=== PATIENT | male | born 1960 | race Caucasian/White ===

== ENCOUNTER 2016-08-26 17:47 | Inpatient (IN) | payer OTHER ==
[2016-08-26] VITALS (11 sets, daily range): BP systolic 124–146; BP diastolic 69–111; PULSE 74–207; TEMP 35.9–36; O2SAT 89–100; BMI 26.3
[~2016-08-26] VITALS: Ht 180.3 cm; Wt 97.2 kg
[~2016-08-26 17:47] MED LIST: PENDING D5NS+20mEq KCL IVF SCH
[2016-08-26] MEDS ORDERED: ASPIRIN 324 MG CHEW ONE (18:03)
[2016-08-26] MEDS ORDERED: ASPIRIN 81 MG CHEW PO STA (18:04)
[2016-08-26] MEDS ORDERED: SODIUM CHLORIDE 0.9% 1000ML 1,000 ML IV STA (18:09)
[2016-08-26] MEDS ORDERED: METOPROLOL TARTRATE 1 MG/ML VIAL IV STA (18:10)
[2016-08-26 18:17] LABS: HEMATOCRIT 51.4 % (42-52); MEAN CELL VOLUME 80.8 fL (80-100); MEAN CORPUSCULAR HEMOGLOBIN 29.4 pg (25-34); MEAN CORPUSCULAR HGB CONC 36.4 g/dl (32-36); MEAN PLATELET VOLUME 9.7 fL (7.4-10.4); PLATELET COUNT 410 K/uL (130-400); RED BLOOD COUNT 6.36 M/uL (4.7-6.1); WHITE BLOOD COUNT 16.97 K/uL (4.8-10.8)
[2016-08-26 18:26] LABS: PARTIAL THROMBOPLASTIN RATIO 1.3; PROTHROMBIN TIME (PATIENT) 10.8 SECONDS (9.0-12.0)
--- NOTE | 2016-08-26 18:34 | DIAGNOSTIC IMAGING REPORT ---
SINGLE VIEW CHEST CLINICAL HISTORY: Atrial fibrillation. Myocardial infarction. FINDINGS: An AP, portable, upright chest radiograph is obtained. No prior studies are available for comparison at the time of dictation. The examination is degraded by portable technique, motion artifact, and patient rotation. The heart is top normal for projection. There is atherosclerotic calcification of the thoracic aorta. The pulmonary vasculature is noncongested. No airspace consolidation, large pleural effusion, or pneumothorax is seen. The bony thorax is grossly intact. IMPRESSION: No acute cardiopulmonary abnormality is seen noting a motion degraded examination. Electronically signed by: Roman Kingsley M.D. 08/26/2016 6:33 PM Dictated Date/Time: 08/26/2016 6:32 PM
[2016-08-26 18:42] LABS: ISTAT HEMOGLOBIN 19.4 g/dl (14.0-18.0); ISTAT IONIZED CALCIUM 1.19 mmol/l (1.12-1.32)
[2016-08-26 18:49] LABS: BUN/CREATININE RATIO 25.5 (10-20); CALCIUM 8.5 mg/dl (8.5-10.1); CKMB/CK RATIO 4.8 (0-3.0); CREATININE 1.7 mg/dl (0.60-1.40); MAGNESIUM 2.7 mg/dl (1.8-2.4); POTASSIUM 4.7 mmol/L (3.5-5.1)
--- NOTE | 2016-08-26 18:51 | EMERGENCY ROOM VISIT NOTE ---
History Report prepared by Rakesh: Kira Garcia Under the Supervision of: Dr. Nicol Rainey M.D. 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 The patients states that the patient starting having GI symptoms 4 days ago with nausea, vomiting,, occasional diarrhea, and unable to eat and drink due to the vomiting. The patients states the patient also had a cough with his symptoms. The patient states that along his GI symptoms his SOB started yesterday. The patient states he also has been feeling lightheaded and that exertion worsened his symptoms. The patient states that he has not seen a doctor in about 10 years but his states that in an occupational exam she thinks they might have mentioned an irregular heartbeat. The patient denies any chest pain or tingling in his face, jaw or arms. He states he is unsure if he had any recent fevers but states the last few days he was feeling warm. The patient states that he has no known medical conditions but his states that diabetes and CAD do run in the patients family. 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 Patient denies: tingling in the face, jaw or arms. Review of Systems See HPI for pertinent positives & negatives. A total of 10 systems reviewed and were otherwise negative. Past Medical & Surgical Medical Problems: (1) No Known Active Medical Problems Family History Diabetes mellitus Heart disease Social History Smoking Status: Former Smoker Marital Status: Housing Status: lives with significant other Occupation Status: unemployed Current/Historical Medications No Active Prescriptions or Reported Meds Allergies Coded Allergies: No Known Allergies (Unverified , 08/26/16) Physical Exam Vital Signs Date Time Temp Pulse Resp B/P Pulse Ox O2 Delivery O2 Flow Rate FiO2 08/26/16 21:47 82 16 120/67 95 Room Air 08/26/16 21:32 85 16 105/55 95 Room Air 08/26/16 18:50 91 30 120/90 97 Nasal Cannula 3.0 08/26/16 18:43 117 08/26/16 18:36 108 30 134/75 99 Nasal Cannula 2.0 08/26/16 18:30 36.0 08/26/16 18:17 90 30 128/83 97 Nasal Cannula 2.0 08/26/16 18:15 83 08/26/16 18:15 142 128/83 08/26/16 18:10 Nasal Cannula 2.0 08/26/16 17:59 146/92 08/26/16 17:52 155 30 128/72 90 Room Air Physical Exam Vital signs reviewed. General: Critically ill appearing male. HEENT: No scleral icterus, PERRLA, neck supple. Atraumatic. Dry mucous membranes. Cardiovascular: Tachycardic and irregular, no extra sounds. Pulmonary: Clear to auscultation bilaterally, Hyperventilating. Abdomen: Soft, nontender, nondistended, positive bowel sounds. Musculoskeletal: Atraumatic, no peripheral edema. Neurologic: Patient awake alert and oriented x 3 Skin: Cold to touch, clammy, no rash Medical Decision & Procedures ER Provider Diagnostic Interpretation: X-ray results as stated below per interpretation by me and the radiologist: SINGLE VIEW CHEST CLINICAL HISTORY: Atrial fibrillation. Myocardial infarction. FINDINGS: An AP, portable, upright chest radiograph is obtained. No prior studies are available for comparison at the time of dictation. The examination is degraded by portable technique, motion artifact, and patient rotation. The heart is top normal for projection. There is atherosclerotic calcification of the thoracic aorta. The pulmonary vasculature is noncongested. No airspace consolidation, large pleural effusion, or pneumothorax is seen. The bony thorax is grossly intact. IMPRESSION: No acute cardiopulmonary abnormality is seen noting a motion degraded examination. Electronically signed by: Roman Kingsley M.D. 08/26/2016 6:33 PM Dictated Date/Time: 08/26/2016 6:32 PM Laboratory Results 08/26/16 18:08 Red Blood Count 6.36, Mean Corpuscular Volume 80.8, Mean Corpuscular Hemoglobin 29.4, Mean Corpuscular Hemoglobin Concent 36.4, Mean Platelet Volume 9.7, Neutrophils (%) (Auto) 83.5, Lymphocytes (%) (Auto) 12.3, Monocytes (%) (Auto) 3.7, Eosinophils (%) (Auto) 0.0, Basophils (%) (Auto) 0.1, Neutrophils # (Auto) 14.18, Lymphocytes # (Auto) 2.08, Monocytes # (Auto) 0.63, Eosinophils # (Auto) 0.00, Basophils # (Auto) 0.01 08/26/16 21:36 Test 08/26/16 18:08 08/26/16 18:18 08/26/16 18:34 08/26/16 19:03 White Blood Count 16.97 K/uL (4.8-10.8) Red Blood Count 6.36 M/uL (4.7-6.1) Hemoglobin 18.7 g/dL (14.0-18.0) Hematocrit 51.4 % (42-52) Mean Corpuscular Volume 80.8 fL (80-100) Mean Corpuscular Hemoglobin 29.4 pg (25-34) Mean Corpuscular Hemoglobin Concent 36.4 g/dl (32-36) Platelet Count 410 K/uL (130-400) Mean Platelet Volume 9.7 fL (7.4-10.4) Neutrophils (%) (Auto) 83.5 % Lymphocytes (%) (Auto) 12.3 % Monocytes (%) (Auto) 3.7 % Eosinophils (%) (Auto) 0.0 % Basophils (%) (Auto) 0.1 % Neutrophils # (Auto) 14.18 K/uL (1.4-6.5) Lymphocytes # (Auto) 2.08 K/uL (1.2-3.4) Monocytes # (Auto) 0.63 K/uL (0.11-0.59) Eosinophils # (Auto) 0.00 K/uL (0-0.5) Basophils # (Auto) 0.01 K/uL (0-0.2) RDW Standard Deviation 38.7 fL (36.4-46.3) RDW Coefficient of Variation 13.1 % (11.5-14.5) Immature Granulocyte % (Auto) 0.4 % Immature Granulocyte # (Auto) 0.07 K/uL (0.00-0.02) Prothrombin Time 10.8 SECONDS (9.0-12.0) Prothromb Time International Ratio 1.0 (0.9-1.1) Activated Partial Thromboplast Time 33.4 SECONDS (21.0-31.0) Partial Thromboplastin Ratio 1.3 Magnesium Level 2.7 mg/dl (1.8-2.4) Total Bilirubin 1.0 mg/dl (0.2-1) Direct Bilirubin 0.2 mg/dl (0-0.2) Aspartate Amino Transf (AST/SGOT) 15 U/L (15-37) Alanine Aminotransferase (ALT/SGPT) 32 U/L (12-78) Alkaline Phosphatase 123 U/L (45-117) Total Creatine Kinase 113 U/L (39-308) Creatine Kinase MB 5.4 ng/ml (0.5-3.6) Creatine Kinase MB Ratio 4.8 (0-3.0) Total Protein 8.6 gm/dl (6.4-8.2) Albumin 3.5 gm/dl (3.4-5.0) Bedside Troponin I 2.500 ng/ml (0-0.045) Arterial Blood pH 7.11 (7.35-7.45) Arterial Blood Partial Pressure CO2 12 mmHg (35-46) Arterial Blood Partial Pressure O2 173 mm/Hg (80-95) Arterial Blood HCO3 4 mmol/L (19-24) Arterial Blood Oxygen Saturation 99.1 % (90-95) Arterial Blood Base Excess -23.2 mEq/L (-9-1.8) Arterial Blood Gas Delivery 3 L Jaime Test (POS) Bedside Hemoglobin 15.3 g/dl (14.0-18.0) Bedside Hematocrit 45 % (42-52) Bedside Sodium 133 mEq/L (135-144) Bedside Potassium 3.6 mEq/L (3.3-5.0) Bedside Chloride 106 mEq/L (101-112) Bedside Total CO2 6 mEq/l (24-31) Bedside Blood Urea Nitrogen 38 mg/dl (7-18) Bedside Creatinine 0.6 mg/dl (0.6-1.3) Bedside Glucose (other) 371 mg/dl (70-99) Bedside Ionized Calcium (Nat) 1.06 mmol/l (1.12-1.32) Test 08/26/16 20:20 08/26/16 21:26 08/26/16 21:36 Kaolin Activated Coagulation Time 219 SECONDS (94-140) Bedside Glucose 248 mg/dl (70-99) Anion Gap 27.0 mmol/L (3-11) Est Creatinine Clear Calc Drug Dose 102.5 ml/min Estimated GFR () 104.8 Estimated GFR (Non- 90.4 BUN/Creatinine Ratio 46.3 (10-20) Calcium Level 6.6 mg/dl (8.5-10.1) Troponin I 3.010 ng/ml (0-0.045) Beta-Hydroxybutyric Acid 75.33 mg/dL (0.2-2.81) Laboratory results per my review. Medications Administered Medications (Trade) Dose Ordered Sig/Raymond Route Start Time Stop Time Status Last Admin Dose Admin Aspirin 324 mg 324 mg STK-MED ONCE .ROUTE 08/26/16 18:03 08/26/16 18:06 DC 08/26/16 18:18 324 MG Sodium Chloride (Nss 1000ml) 1,000 ml @ 999 mls/hr Q1H1M STAT IV 08/26/16 18:09 08/26/16 19:09 DC 08/26/16 18:18 999 MLS/HR Metoprolol Tartrate (Lopressor Iv) 5 mg NOW STAT IV 08/26/16 18:10 08/26/16 18:11 DC 08/26/16 18:43 2.5 MG Heparin Sodium (Porcine) (Heparin Iv Bolus) 10,000 unit STK-MED ONCE .ROUTE 08/26/16 19:06 08/26/16 19:09 DC 08/26/16 19:06 4,000 UNIT Midazolam HCl (Versed Inj) 2 mg STK-MED ONCE .ROUTE 08/26/16 19:06 08/26/16 19:09 DC 08/26/16 19:06 2 MG Fentanyl Citrate (Fentanyl Inj) 100 mcg STK-MED ONCE .ROUTE 08/26/16 19:06 08/26/16 19:09 DC 08/26/16 19:06 50 MCG Sodium Bicarbonate (Sodium Bicarbonate 8.4% Inj) 50 ml STK-MED ONCE IV 08/26/16 19:11 08/26/16 23:05 DC 08/26/16 19:11 50 ML Insulin Human Regular (novoLIN-R U-100 PER UNIT) 10 units STK-MED ONCE .ROUTE 08/26/16 19:39 08/26/16 19:43 DC 08/26/16 19:39 10 UNITS Potassium Chloride (Kcl 10 Meq / Wtr) 20 meq STK-MED ONCE IV 08/26/16 20:09 08/26/16 20:12 DC 08/26/16 20:09 20 MEQ Heparin Sodium (Porcine) (Heparin Iv Bolus) 10,000 unit STK-MED ONCE .ROUTE 08/26/16 20:21 08/26/16 20:24 DC 08/26/16 20:21 10,000 UNIT Eptifibatide (Integrilin Inj) 75 mg STK-MED ONCE IV 08/26/16 20:54 08/26/16 20:58 DC 08/26/16 20:54 75 MG Eptifibatide (Integrilin Inj) 40 mg STK-MED ONCE IV 08/26/16 20:55 08/26/16 20:58 DC 08/26/16 20:55 40 MG Sodium Bicarbonate (Sodium Bicarbonate 8.4% Inj) 50 ml Q15M IV 08/26/16 19:30 08/26/16 21:15 DC 08/26/16 19:30 50 ML Clopidogrel Bisulfate (plAVix TAB) 600 mg STK-MED ONCE PO 08/26/16 21:38 08/26/16 21:41 DC 08/26/16 21:38 600 MG ECG Indication: SOB/dyspnea Rate (beats per minute): 149 Rhythm: atrial fibrillation (with RVR) Findings: Q waves (Anterior), ST elevation (Inferior, reciprical changes anteriorly), other (Right [place] deviation, ST elevation [place]) Change: EKG #2: rate 102, Atrial fibrillation with RVR, ST elevation in inferior leads, T wave inversion, Q waves anterior leads, reciprocal changes anteriorly. Improved from a rate of 149. ED Course 1802: Past medical records reviewed. The patient was evaluated in room A3. A complete history and physical examination was performed. 1803: Ordered Aspirin 324 mg PO. 1804: Heart alert on the patient. 1808: Ordered Sodium Chloride 1,000 ml @ 999 mls/hr IV. 1809: Ordered Lopressor Iv 5 mg IV. 0: I discussed the case with Dr. Reed Cardiology. We discussed the case and treatment plan for the patient. 1914: Ordered Insulin Protocol Severe stress 1 ea N/A, Insulin Protocol DKA Goal Range 1 ea N/A. 1919: Pt d/w Dr See of hospitalist service. Medical Decision Differential diagnosis: Acute coronary syndrome, pulmonary embolus, aortic dissection, musculoskeletal pain, pneumonia, pleural effusion, pneumothorax, metabolic abnormality, viral illness, dehydration, renal failure, cardiac arrhythmia This patient was evaluated and appeared to be in no significant distress. IV access was obtained and laboratory work was drawn. The patient was placed on the monitoring analyst and found to be in a rapid atrial fibrillation. EKG reveals ST elevation in the inferior leads with reciprocal change. I-STAT labs were obtained and reveal a bicarbonate of 7 with a blood glucose of 458. ABG was obtained and reveals a pH of 7.11. Patient's heart rate improved with IV Lopressor a total of 5 mg. He was given 2 L of IV normal saline solution. Dr. Reed was notified of the heart alert. The initial page was 180. Due to clerical error, it appears that the heart alert page had been canceled. At 1849 , Dr. Reed was paged directly by myself and the case was discussed. An insulin drip was ordered for the patient. He promptly evaluated the patient in the emergency department and taken to the Grading Supervisor for definitive management. I did discuss the case with Dr. See of the hospitalist service who will evaluate the patient for further management. Patient and his are aware of the plan and agree. Consults Time Called: 1844 Consulting Physician: Dr. Reed Cardiology Returned Call: 1849 I discussed the case with Dr. Reed Cardiology. We discussed the case and treatment plan for the patient. Impression Primary Impression: DKA (diabetic ketoacidoses) Additional Impressions: Atrial fibrillation with RVR ST elevation myocardial infarction (STEMI) of inferior wall Critical Care I have personally spent greater than 75 minutes of critical care time in the direct management of this patient. This includes bedside care, interpretation of diagnostic studies, and testing, discussion with consultants, patient, and family members, and other required patient management activities. This 60 minutes is in excess of all separately billable procedures. Scribe Attestation The scribe's documentation has been prepared under my direction and personally reviewed by me in its entirety. I confirm that the note above accurately reflects all work, treatment, procedures, and medical decision making performed by me. Departure Information Dispostion Being Evaluated By Hospitalist Prescriptions No Active Prescriptions or Reported Meds Referrals No Doctor, Assigned (PCP) Patient Instructions My [facility] Problem Qualifiers Primary Impression: DKA (diabetic ketoacidoses)
[2016-08-26 19:03] LABS: ARTERIAL BLOOD GAS pH 7.11 (7.35-7.45)
[2016-08-26 19:04] LABS: ARTERIAL BLD GAS O2 SATURATION 99.1 % (90-95); ARTERIAL BLOOD GAS BASE EXCESS -23.2 mEq/L (-9-1.8); ARTERIAL BLOOD GAS HCO3 4 mmol/L (19-24); ARTERIAL BLOOD GAS PO2 173 mm/Hg (80-95); O2 ADMINISTRATION 3 L
[2016-08-26] MEDS ORDERED: FENTANYL CITRATE INJ 50 MCG/1 ML 2 ML VIAL ONE (19:06)
[2016-08-26] MEDS ORDERED: HEPARIN SOD (PORCINE) 1000 UNIT/ML 10 ML VIAL ONE ×2 (19:06→20:21)
[2016-08-26] MEDS ORDERED: NITROGLYCERIN/D5W 100MCG/ML 20ML SYR ONE (19:06)
[2016-08-26] MEDS ORDERED: MIDAZOLAM HCL 1 MG/ML 2ML VIAL ONE (19:06)
[2016-08-26] MEDS ORDERED: NiCARDipine HCL INJ 2.5 MG/ML 10 ML AMP ONE (19:06)
[2016-08-26] MEDS ORDERED: INSULIN IV INFUSION PROTOCOL STA ×2 (19:10→23:00)
[2016-08-26] MEDS ORDERED: SODIUM BICARB 8.4% INJ 50 MEQ/50 ML SYR IV ONE (19:11)
[2016-08-26] MEDS ORDERED: SEVERE STRESS LEVEL ONE ×2 (19:15→23:00)
[2016-08-26] MEDS ORDERED: DKA GOAL RANGE 150-250 mg/dl 1 EA ONE (19:15)
[2016-08-26 19:16] LABS: BASO % 0.1 %; BASO ABS # 0.01 K/uL (0-0.2); COMPLETE YES; IG% 0.4 %; LYMPH % 12.3 %; LYMPH ABS # 2.08 K/uL (1.2-3.4); MONO % 3.7 %; NEUT % 83.5 %
[2016-08-26] MEDS ORDERED: INSULIN REGULAR 250 UNITS in SODIUM CHLORIDE 0.9% 250ML 250 ML IV SCH (19:17)
[2016-08-26 19:28] LABS: BETA-HYDROXYBUTYRATE 91.22 mg/dL (0.2-2.81)
[2016-08-26] MEDS ORDERED: GLUCOSE 10 TABS/TUBE PO PRN ×2 (19:30→23:30)
[2016-08-26] MEDS ORDERED: INSULIN HUMAN REGULAR IV BOLUS 3.5 UNIT in SYRINGE 0 ML IV ONE (19:30)
[2016-08-26] MEDS ORDERED: GLUCOSE 40% GEL 15 GM TUBE PO PRN ×2 (19:30→23:30)
[2016-08-26] MEDS: SODIUM BICARB 8.4% INJ 50 MEQ/50 ML SYR IV SCH (19:30)
[2016-08-26] MEDS ORDERED: GLUCAGON FOR INJ 1 MG VIAL SQ PRN ×2 (19:30→23:30)
[2016-08-26] MEDS ORDERED: DEXTROSE 50% 50 ML SYR IV PRN ×2 (19:30→23:30)
[2016-08-26] MEDS ORDERED: NovoLIN-R INSULIN PER UNIT CHARGE ONE (19:39)
[2016-08-26] MEDS ORDERED: NOREPINEPHRINE BITARTRATE 1 MG/ML 4 ML VIAL ONE (19:56)
[2016-08-26] MEDS ORDERED: POTASSIUM CHLORIDE 10 MEQ / 100ML WTR IV ONE (20:09)
[2016-08-26] MEDS ORDERED: EPTIFIBATIDE 0.75 MG/ML 75MG VIAL IV ONE (20:54)
[2016-08-26] MEDS ORDERED: EPTIFIBATIDE 2 MG/ML 10 ML VIAL IV ONE (20:55)
[2016-08-26] MEDS ORDERED: INSULIN ASPART 100 UNITS/ML 3 ML PEN SC SCH (21:00)
[2016-08-26] MEDS ORDERED: NURSING VERBAL MED ORDER ONE (21:15)
[2016-08-26] MEDS ORDERED: CLOPIDOGREL BISULFATE 300 MG TAB PO ONE (21:38)
--- NOTE | 2016-08-26 21:42 | Procedure Note ---
Pre-Mod Sedation Assessment General Date of Moderate Sedation: Aug 26, 2016. Vital Signs: Vital Signs Past 12 Hours Date Time Temp Pulse Resp B/P Pulse Ox O2 Delivery O2 Flow Rate FiO2 08/26/16 18:50 91 30 120/90 97 Nasal Cannula 3.0 08/26/16 18:43 117 08/26/16 18:36 108 30 134/75 99 Nasal Cannula 2.0 08/26/16 18:30 36.0 08/26/16 18:17 90 30 128/83 97 Nasal Cannula 2.0 08/26/16 18:15 83 08/26/16 18:15 142 128/83 08/26/16 18:10 Nasal Cannula 2.0 08/26/16 17:59 146/92 08/26/16 17:52 155 30 128/72 90 Room Air Review Cardiovascular: regular rate, rhythm, no edema Abdomen: normal bowel sounds, non tender, soft Lungs: lungs clear, normal breath sounds Airway Class: II Pre-Sedation Airway Assessment Oral Cavity: WNL Able to Visualize Vocal Cords: Yes Short Thick Neck: Yes Hx of Sleep Apnea: Yes Smoking Status: Former Smoker Mallampati Classification: Class II ASA Classification: Class III Procedure Planning Contraindications-for Mod Sed: None Yes Notes The planned sedation has been discussed with the patient and consent obtained. I have identified the patient, determined the appropriateness of sedation and have assessed the patient immediately prior to the procedure. All medicine(s) and interventions are by my order.
--- NOTE | 2016-08-26 21:44 | Procedure Note ---
Post-Mod Sedation Assessment General Date of Moderate Sedation Aug 26, 2016. Vital Signs: Vital Signs Past 12 Hours Date Time Temp Pulse Resp B/P Pulse Ox O2 Delivery O2 Flow Rate FiO2 08/26/16 18:50 91 30 120/90 97 Nasal Cannula 3.0 08/26/16 18:43 117 08/26/16 18:36 108 30 134/75 99 Nasal Cannula 2.0 08/26/16 18:30 36.0 08/26/16 18:17 90 30 128/83 97 Nasal Cannula 2.0 08/26/16 18:15 83 08/26/16 18:15 142 128/83 08/26/16 18:10 Nasal Cannula 2.0 08/26/16 17:59 146/92 08/26/16 17:52 155 30 128/72 90 Room Air Review - Discharge Criteria Vital Signs Stable: Yes Alert/Oriented/Conversant: Yes Returned to Baseline Mental St: Yes Nausea Absent/Minimal: Yes Pain/Discomfort/Absent/Minimal: Yes Normal/Baseline Respirations: Yes Active Bleeding?: No Pt Received D/C Instructions: N/A Prescriptions Given: None Specific Proced. D/C Criteria Distal Pulses Present (Cardiac: Yes Groin site assessed-Card Cath: N/A Voided Prior To Discharge: N/A Discharged Patients Adult Escort/Transportation: Yes
[2016-08-26] MEDS ORDERED: EPTIFIBATIDE BOLUS / DRIP IV STA (21:47)
[2016-08-26] MEDS ORDERED: ACETAMINOPHEN 325 MG TAB PO PRN (22:00)
[2016-08-26 22:04] LABS: ISTAT ARTERIAL BLOOD GAS HCO3 6 meq/L (19-24); ISTAT ARTERIAL BLOOD GAS PCO2 15 mmHg (35-46); ISTAT ARTERIAL BLOOD GAS PO2 118 mmHg (80-95); ISTAT ARTERIAL BLOOD GAS pH 7.23 (7.35-7.45); ISTAT CARBON DIOXIDE 7 mEq/l (24-31)
[2016-08-26 22:04] LABS: ISTAT ARTERIAL BLOOD GAS HCO3 4 meq/L (19-24); ISTAT ARTERIAL BLOOD GAS PCO2 12 mmHg (35-46); ISTAT ARTERIAL BLOOD GAS PO2 159 mmHg (80-95); ISTAT ARTERIAL BLOOD GAS pH 7.11 (7.35-7.45); ISTAT CARBON DIOXIDE < 5 mEq/l (24-31)
[2016-08-26 22:04] LABS: ISTAT ARTERIAL BLOOD GAS HCO3 4 meq/L (19-24); ISTAT ARTERIAL BLOOD GAS PCO2 13 mmHg (35-46); ISTAT ARTERIAL BLOOD GAS PO2 164 mmHg (80-95); ISTAT CARBON DIOXIDE < 5 mEq/l (24-31)
[2016-08-26 22:04] LABS: ISTAT ARTERIAL BLOOD GAS HCO3 6 meq/L (19-24); ISTAT ARTERIAL BLOOD GAS PCO2 15 mmHg (35-46); ISTAT ARTERIAL BLOOD GAS PO2 157 mmHg (80-95); ISTAT ARTERIAL BLOOD GAS pH 7.18 (7.35-7.45); ISTAT CARBON DIOXIDE 6 mEq/l (24-31)
[2016-08-26 22:04] LABS: ISTAT CREATININE 0.6 mg/dl (0.6-1.3); ISTAT HEMOGLOBIN 15.3 g/dl (14.0-18.0); ISTAT IONIZED CALCIUM 1.06 mmol/l (1.12-1.32)
[2016-08-26 22:14] LABS: BUN/CREATININE RATIO 46.3 (10-20); CREATININE 0.95 mg/dl (0.60-1.40); POTASSIUM 4.1 mmol/L (3.5-5.1)
[2016-08-26] MEDS ORDERED: SODIUM CHLORIDE 0.9% 1000ML 1,000 ML IV SCH (22:30)
--- NOTE | 2016-08-26 22:32 | Cardiac Catheterization ---
Procedure Note Procedure Date Aug 26, 2016. Pre-Procedure Diagnosis STEMI AUC Score 9 Post-Procedure Diagnosis Severe CAD, Successful PCI, Normal Intracardiac Pressures Procedure(s) Performed Coronary Angiography, Left Heart Cath, Drug Eluting Stent [place] Enc[place] Dr. 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 Initial ECG showed inferior ST-elevations with Atrial Fibrillation with RVR Also noted to be in DKA with Glucose ~500, AG 27, pH 7.11 Access: 6Fr Slender Right Radial Artery Catheters: JL 3.5 diagnostic, JR4 guide, AR1 guide Findings: LM - Luminal irregularities LAD - Moderate caliber vessel that wraps around the apex. Focal 40-50% mid segment stenosis with questionable myocardial bridging. Distal luminal irregularities. Circumflex - 20% ostial stenosis, mild diffuse proximal disease, 70% proximal stenosis in OM2 at take-off of small severely disease inferior branch of OM2. 50% distal circumflex stenosis. RCA - Dominant, anterior take-off. 100% occlusion in proximal segment. Severe calcification from proximal to mid segment. Left to right collaterals to PDA, PLBs. LVEDP - 10 -- PCI -- Antithrombotic therapy: Heparin, Integrilin, Clopidogrel Procedure: RCA cannulated with JR4 guide. With anterior take-off, heavy calcification, switched to AR1 guide Unable to pass occlusion with BMW wire. [employer] Turbine Assembler 50 wire using balloon for support was passed across lesion into distal vessel. Intraluminal position confirmed with contrast injection via 2.0 OTW balloon. [employer] Turbine Assembler 50 replaced with Mailman wire. Proximal to mid lesion predilated with 2.0, 2.5 and 3.0 compliant balloons with eventual expansion of mid segment Dilated lesion stented with 3.0 x 38 Resolute overlapped proximally with 3.5 x 22 Resolute. Stent post-dilated with 3.5 noncompliant balloon Distal small-moderate caliber PLB noted to be occluded. Lesion crossed with BMW wire Distal PLB dilated with gentle 2.0 balloon inflation. IC vasodilators administered Post procedure KANDIS 3 flow throughout RCA system, stents well expanded with minimal residual stenosis and no apparent cardiac complications. Arterial Closure: TR band Intra-procedure received 10 U IV insulin, 200 mEq Bicarbonate, 20 mEq Potassium and 2L IV fluids. Converted spontaneously to normal sinus rhythm at ~20:34 Summary: 1. Inferior STEMI/Occluded heavily calcified RCA (suspect chronic severe RCA disease with pre-procedure left to right collaterals) 2. Moderate to severe residual LAD, circumflex disease - 40-50% mid LAD - 70% proximal OM2 3. Normal intracardiac filling pressures (LVEDP 11) 4. Successful PCI of proximal to mid RCA with 3.5 x 22, 3.0 x 38 overlapping Resolute MARILYN - POBA to distal R-PLB Recommendations: Admit to ICU for continued monitoring Continue Integrilin infusion for 12 hours Loaded with Clopidogrel 600 mg in picket [employer] union Continue dual-antiplatelet therapy with ASA/Plavix for 1 year Trend troponins until peak, Check Echo Uptitrate beta-girish/TATIANNA as BP allows High-dose statin Consult cardiac Rehab Medical management of residual coronary artery disease. Hemodynamics Rest Ao: 100/65/80 Final Ao: 95/52/69 LV: 98/10 Recommendations PCI without planned CABG Specimens None Radiation Exposure (mGy) 5969 Contrast (mls) 180 Fluids (cc crystalloids) 2200 Drains none Anesthesia moderate Procedural Complication(s) None Disposition ICU ACC Data Cardiac Status Clinical evaluation leading to the procedure CAD Presntation: STEMI STEMI or Non-STEMI: Symptom Onset Date/Time: 48 hrs Anginal Classification: CCS IV Heart Failure: No, NYHA Class: CCS I Cardiogenic Shock w/in 24Hrs: No Cardiac Arrest w/in 24Hrs: No Imaging studies past 6 months: No Stress studies past 6 months: No Standard Exercise Stress Test: No Stress Echocardiogram: No Stress Testing w/SPECT MPI: No Cardiac CTA: No Coronary Anatomy Dominant: Right Left Main (% Stenosis): Normal LAD (% Stenosis): Mid (40-50) Circumflex (% Stenosis): Ostial (20), Distal (50) OM2 (% Stenosis): Proximal (70) RCA (% Stenosis): Proximal (100) R PL2 (% Stenosis): Proximal (100) Diagnostic Physician's Name: Elder Reed MD Status: Emergency Closure Device Percutaneous Entry Location: Radial Closure Device: Radial Band Recommendations: PCI without planned CABG PCI Indication: Immediate PCI for STEMI (12Hrs from SX onset) First Noted: First EKG (18:04) Reason For Delay in PCI: Relay of Heart Alert to covering team Lesion Segment Name: Proximal to mid RCA Culprit Artery: Yes Stenosis Prior to Rx (%): 100 Chronic Total Occlusion: No IVUS: No FFR: No Pre-Procedure KANDIS Flow: 0 Previously Treated Lesion: No Lesion Complexity: High/C Lesion Length (mm): 40 Thrombus Present: Yes Bifurcation Lesion: No Guidewire Across Lesion: Yes Guidewire: Stenosis Post-Procedure (%): 0 Post-Procedure KANDIS Flow: 3 Device(s) Deployed: Yes Intraprocedure Events Significant Dissection: No Perforation: No
[2016-08-26] MEDS: ONDANSETRON INJ 2 MG/ML 2 ML VIAL IV PRN ×2 (22:41→23:50)
[2016-08-26] MEDS ORDERED: ONDANSETRON INJ 2 MG/ML 2 ML VIAL IV PRN (22:45)
[2016-08-26] MEDS ORDERED: HHS GOAL RANGE 250-350 mg/dl ONE (23:00)
[2016-08-26 23:08] LABS: CALCIUM 6.6 mg/dl (8.5-10.1)
[2016-08-26] MEDS ORDERED: SODIUM BICARBONATE IV SCH (23:15)
[2016-08-26] MEDS ORDERED: PANTOprazole INJ 40 MG in SYRINGE 0 ML IV ONE (23:15)
[2016-08-26] MEDS ORDERED: POTASSIUM CHLORIDE IV SCH (23:15)
[2016-08-26] MEDS ORDERED: [UNRECOGNIZED DRUG - OTHER] IV SCH (23:15)
[2016-08-26 23:22] LABS: ISTAT ALLEN TEST Pass; ISTAT ARTERIAL BLOOD GAS HCO3 6 meq/L (19-24); ISTAT ARTERIAL BLOOD GAS PCO2 13 mmHg (35-46); ISTAT ARTERIAL BLOOD GAS PO2 107 mmHg (80-95); ISTAT ARTERIAL BLOOD GAS pH 7.23 (7.35-7.45); ISTAT CARBON DIOXIDE 6 mEq/l (24-31); ISTAT DELIVERY SYSTEM Room Air; ISTAT SITE L Radial
--- NOTE | 2016-08-26 23:23 | CARDIOLOGY CONSULTATION ---
DATE OF CONSULTATION: 08/26/2016 CONSULTATION REQUESTE BY: Dr. Rainey in the Emergency Department. REASON FOR CONSULTATION: Heart alert. HISTORY OF PRESENT ILLNESS: Mr. Puentes is a 55-year-old male with no real significant past medical history, who presented to the Emergency Department complaining of shortness of breath for 1 day and GI symptoms with nausea, vomiting, occasional diarrhea beginning 4 days prior to admission. The patient on presentation had an EKG which showed atrial fibrillation with inferior ST elevations and a heart alert was called. The patient has no prior cardiac history. He has no prior history of diabetes. He noted feeling lightheaded with worsening shortness of breath for the last day leading to his presentation. When presented, the patient was noted to be in DKA with an initial pH of 7.11 and an anion gap of 27 and blood sugars into the high 400s, near 500. He was treated with IV fluids and aspirin prior to being taken emergently to the label printer. Also, in the Emergency Department, the patient received IV Lopressor for atrial fibrillation with RVR. In the label printer, the patient underwent procedure via his right radial artery. He was found to have moderate disease in his LAD and OM2. He was also noted to have an occluded RCA which was heavily calcified and was noted to have left to right collaterals at the beginning of the case suggestive of chronic severe disease. PCI was undertaken and eventually RCA was treated with 2 drug-eluting stents (Resolute 3.5 x 22, Resolute 3.0 x 38 mm). During the procedure, the patient received 10 units of IV insulin, 2 liters of IV fluid, potassium, and 4 amps of bicarbonate. Post-procedure, pH was 7.23 and glucose was in the 280s. Also in procedure, the patient received IV Integrilin and was loaded with Plavix prior to leaving. At the completion of procedure, the patient was chest pain free, endorsed improved dyspnea, and was transferred to the ICU. PAST MEDICAL HISTORY: No significant past medical history. FAMILY HISTORY: States mother had coronary artery disease. SOCIAL HISTORY: Was a prior smoker, quit about 5 years ago. Denies any other illicit drugs. He is . Has a daughter. MEDICATIONS: None. ALLERGIES: None. REVIEW OF SYSTEMS: Not completed in the emergent situations. PHYSICAL EXAMINATION: VITAL SIGNS: Temperature 36, pulse 108, respiratory rate was 30, blood pressure was 134/75, he was satting 99% on 2 liters. GENERAL: The patient appeared ill. He was tachypneic, in mild distress. HEENT: Sclerae anicteric. Oropharynx was dry. NECK: Supple with no lymphadenopathy. LUNGS: Clear to auscultation bilaterally. CARDIAC: He was irregularly irregular, tachycardic, with no appreciable murmurs, rubs or gallops. ABDOMEN: Soft, nontender, nondistended, with positive bowel sounds. EXTREMITIES: Warm. He had 2+ distal pulses bilaterally including 2+ right radial pulse. SKIN: Showed rashes or lesions. NEUROLOGIC: The patient was sleepy, but the remainder of the exam was grossly nonfocal. DATA: Sodium 129, potassium 4.7, chloride of 95, bicarbonate of 7 with an anion gap of 27, BUN of 43, creatinine of 1.7, glucose of 492, magnesium of 2.7. LFTs within normal limits except for slightly elevated alkaline phosphatase at 123. CK-MB of 5.4. Hipwf-[id number] troponin of 2.5 and beta hydroxybutyric acid of 91.2. INR was 1.0. WBC was 16.9, hemoglobin of 18.7, and platelets of 410. His initial blood gas was 7.11, 12, 173, 4. Chest x-ray showed no acute cardiopulmonary process. EKG showed atrial fibrillation with a rapid ventricular response at 102. There were inferior ST elevations as well as lateral ST depressions. IMPRESSION AND PLAN: 1. Inferior ST-segment elevation myocardial infarction. 2. Diabetic ketoacidosis. 3. Atrial fibrillation with rapid ventricular response. 4. Acute kidney injury. Patient here with several days of GI symptoms and worsening shortness of breath. He was found to have inferior ST segment elevations on EKG in the setting of DKA on presentation. Was successfully treated with primary PCI with 2 drug-eluting stents placed to his RCA with good angiographic result. Going forward, would continue the patient on Integrilin for 12 hours. Was loaded with Plavix 600 mg in the label printer and will continue on dual antiplatelet therapy for at least a year. As blood pressure allows, plan to start beta girish, TATIANNA inhibitor. We will start on high-dose statin. The patient will be admitted to the ICU for continued DKA management. Atrial fibrillation converted to normal sinus rhythm intraprocedure. We will continue to follow the patient while in the hospital. SABRINA
[2016-08-26] MEDS: D5NSS + 20MEQ KCL 1,000 ML IV SCH (23:41)
[2016-08-26] MEDS ORDERED: PHARMACY GLYCEMIC MGMT CONSULT PRN (23:45)
[2016-08-26] MEDS ORDERED: INSULIN HUMAN REGULAR IV BOLUS 3 UNIT in SYRINGE 0 ML IV SCH (23:45)
[2016-08-26] MEDS: INSULIN REGULAR 250 UNITS in SODIUM CHLORIDE 0.9% 250ML 250 ML IV SCH (23:45)
[2016-08-27] VITALS (21 sets, daily range): BP systolic 87–134; BP diastolic 52–67; PULSE 78–124; TEMP 36.3–36.9; O2SAT 95–99; BMI 26.3
--- NOTE | 2016-08-27 00:07 | History and Physical ---
History & Physical Date & Time of Service: Aug 26, 2016 at 23:43 Chief Complaint: Atrial Fibrillation With Rvr, Dka Primary Care Physician: No Doctor, Assigned History of Present Illness Source: patient, family Mr. Puentes is a 55-year-old male who presented as a Heart Alert this evening, was found to have 100% blockage of RCA with 2 drug-eluting stents placed by Dr. Reed, also found to be in DKA. Over the last 4 days, he had persistent GI symptoms, including nausea, vomiting , diarrhea, which made him feel very weak. He had occasional shortness of breath and was brought in to the ED by his . He denied any chest pain at any point. He does not have a history of diabetes. He reports over the last 4 days he has not been able to keep anything down, so he was drinking very sugary drinks, including iced tea and lemonade. He reports he started to feel weak and fatigued with any exertion. Also reported intermittent chills, but denied having an actual fever. He thought he had the flu so did not seek medical attention. He does not have a primary care provider. On arrival to the ED, he was found to be in atrial fibrillation with RVR. He was given 5mg of IV Lopressor. His EKG also showed ST elevation in the inferior leads and a heart alert was called. He was found to have 100% blockage of the RCA and had 2 drug eluting stents placed earlier today. His pH was also 7.11, with a bicarb of 4 and BSGs of 458-492. He was given NSS, 4 ampoules of bicarb, 10 units of IV insulin and his pH has come up to 7.24. Currently he has occasional sweats, but still denies any chest pain or shortness of breath now. He reports being thirsty, and slightly hungry. Past Medical/Surgical History PMHx: None reported, but likely underlying DM PSHx: None Family History Diabetes mellitus Heart disease Social History Smoking Status: Former Smoker (Stopped 5 years ago) Marital Status: Housing status: lives with family Allergies Coded Allergies: No Known Allergies (Unverified , 08/26/16) Home Medications No Active Prescriptions or Reported Meds Review of Systems See HPI for pertinent positives & negatives. Specifically, he did have nausea, vomiting, diarrhea, anorexia over the last 4 days. He also had extreme fatigue, and occasional chills. A total of 10 systems reviewed and were otherwise negative. Physical Exam Vital Signs Date Time Temp Pulse Resp B/P Pulse Ox O2 Delivery O2 Flow Rate FiO2 08/26/16 22:05 35.9 82 26 132/111 98 Room Air 08/26/16 21:47 82 16 120/67 95 Room Air 08/26/16 21:32 85 16 105/55 95 Room Air 08/26/16 18:50 91 30 120/90 97 Nasal Cannula 3.0 08/26/16 18:43 117 08/26/16 18:36 108 30 134/75 99 Nasal Cannula 2.0 08/26/16 18:30 36.0 08/26/16 18:17 90 30 128/83 97 Nasal Cannula 2.0 08/26/16 18:15 83 08/26/16 18:15 142 128/83 08/26/16 18:10 Nasal Cannula 2.0 08/26/16 17:59 146/92 08/26/16 17:52 155 30 128/72 90 Room Air General Appearance: WD/WN, + mild distress Head: normocephalic, atraumatic Eyes: normal inspection, PERRL ENT: hearing grossly normal Neck: supple, no JVD Respiratory/Chest: lungs clear, normal breath sounds, no respiratory distress Cardiovascular: regular rate, rhythm, no murmur Abdomen/GI: non tender, soft Back: normal inspection, no muscle spasm Extremities/Musculoskelatal: normal inspection, no pedal edema, normal range of motion Neurologic/Psych: costume technician II-XII nml as tested, no motor/sensory deficits, alert Skin: no rash Diagnostics Laboratory Results Results Past 24 Hours Test 08/26/16 17:59 08/26/16 18:08 08/26/16 18:14 08/26/16 18:18 Range/Units Bedside Glucose 458 70-99 mg/dl White Blood Count 16.97 4.8-10.8 K/uL Red Blood Count 6.36 4.7-6.1 M/uL Hemoglobin 18.7 14.0-18.0 g/dL Hematocrit 51.4 42-52 % Mean Corpuscular Volume 80.8 80-100 fL Mean Corpuscular Hemoglobin 29.4 25-34 pg Mean Corpuscular Hemoglobin Concent 36.4 32-36 g/dl Platelet Count 410 130-400 K/uL Mean Platelet Volume 9.7 7.4-10.4 fL Neutrophils (%) (Auto) 83.5 % Lymphocytes (%) (Auto) 12.3 % Monocytes (%) (Auto) 3.7 % Eosinophils (%) (Auto) 0.0 % Basophils (%) (Auto) 0.1 % Neutrophils # (Auto) 14.18 1.4-6.5 K/uL Lymphocytes # (Auto) 2.08 1.2-3.4 K/uL Monocytes # (Auto) 0.63 0.11-0.59 K/uL Eosinophils # (Auto) 0.00 0-0.5 K/uL Basophils # (Auto) 0.01 0-0.2 K/uL RDW Standard Deviation 38.7 36.4-46.3 fL RDW Coefficient of Variation 13.1 11.5-14.5 % Immature Granulocyte % (Auto) 0.4 % Immature Granulocyte # (Auto) 0.07 0.00-0.02 K/uL Prothrombin Time 10.8 9.0-12.0 SECONDS Prothromb Time International Ratio 1.0 0.9-1.1 Activated Partial Thromboplast Time 33.4 21.0-31.0 SECONDS Partial Thromboplastin Ratio 1.3 Sodium Level 129 136-145 mmol/L Potassium Level 4.7 3.5-5.1 mmol/L Chloride Level 95 98-107 mmol/L Carbon Dioxide Level 7 21-32 mmol/L Anion Gap 27.0 27.0 16-25 mmol/L Blood Urea Nitrogen 43 7-18 mg/dl Creatinine 1.70 0.60-1.40 mg/dl Est Creatinine Clear Calc Drug Dose 57.3 ml/min Estimated GFR () 51.8 Estimated GFR (Non- 44.7 BUN/Creatinine Ratio 25.5 10-20 Random Glucose 480 70-99 mg/dl Calcium Level 8.5 8.5-10.1 mg/dl Magnesium Level 2.7 1.8-2.4 mg/dl Total Bilirubin 1.0 0.2-1 mg/dl Direct Bilirubin 0.2 0-0.2 mg/dl Aspartate Amino Transf (AST/SGOT) 15 15-37 U/L Alanine Aminotransferase (ALT/SGPT) 32 12-78 U/L Alkaline Phosphatase 123 45-117 U/L Total Creatine Kinase 113 39-308 U/L Creatine Kinase MB 5.4 0.5-3.6 ng/ml Creatine Kinase MB Ratio 4.8 0-3.0 Total Protein 8.6 6.4-8.2 gm/dl Albumin 3.5 3.4-5.0 gm/dl Beta-Hydroxybutyric Acid 91.22 0.2-2.81 mg/dL Bedside Hemoglobin 19.4 14.0-18.0 g/dl Bedside Hematocrit 57 42-52 % Bedside Sodium 129 135-144 mEq/L Bedside Potassium 4.8 3.3-5.0 mEq/L Bedside Chloride 101 101-112 mEq/L Bedside Total CO2 7 24-31 mEq/l Bedside Blood Urea Nitrogen 43 7-18 mg/dl Bedside Creatinine 1.0 0.6-1.3 mg/dl Bedside Glucose (other) 492 70-99 mg/dl Bedside Ionized Calcium (Nat) 1.19 1.12-1.32 mmol/l Bedside Troponin I 2.500 0-0.045 ng/ml Test 08/26/16 18:32 08/26/16 18:34 08/26/16 18:49 08/26/16 19:03 Range/Units Bedside Blood Gas pH (LAB) 7.10 7.35-7.45 Bedside Blood Gas pCO2 (LAB) 13 35-46 mmHg Bedside Blood Gas pO2 (LAB) 164 80-95 mmHg Bedside Blood Gas HCO3 (LAB) 4 19-24 meq/L Bedside Blood Gas Total CO2 < 5 24-31 mEq/l Bedside Blood Gas Base Excess (LAB) -26.0 -9-1.8 meq/L Bedside Blood Gas O2 Saturation 99.0 90-95 % Arterial Blood pH 7.11 7.35-7.45 Arterial Blood Partial Pressure CO2 12 35-46 mmHg Arterial Blood Partial Pressure O2 173 80-95 mm/Hg Arterial Blood HCO3 4 19-24 mmol/L Arterial Blood Oxygen Saturation 99.1 90-95 % Arterial Blood Base Excess -23.2 -9-1.8 mEq/L Arterial Blood Gas Delivery 3 L Jaime Test POS Kaolin Activated Coagulation Time 209 94-140 SECONDS Bedside Hemoglobin 15.3 14.0-18.0 g/dl Bedside Hematocrit 45 42-52 % Bedside Sodium 133 135-144 mEq/L Bedside Potassium 3.6 3.3-5.0 mEq/L Bedside Chloride 106 101-112 mEq/L Bedside Total CO2 6 24-31 mEq/l Anion Gap 26.0 16-25 mmol/L Bedside Blood Urea Nitrogen 38 7-18 mg/dl Bedside Creatinine 0.6 0.6-1.3 mg/dl Bedside Glucose (other) 371 70-99 mg/dl Bedside Ionized Calcium (Nat) 1.06 1.12-1.32 mmol/l Test 08/26/16 19:09 08/26/16 19:12 08/26/16 19:35 08/26/16 19:44 Range/Units Bedside Blood Gas pH (LAB) 7.11 7.18 7.35-7.45 Bedside Blood Gas pCO2 (LAB) 12 15 35-46 mmHg Bedside Blood Gas pO2 (LAB) 159 157 80-95 mmHg Bedside Blood Gas HCO3 (LAB) 4 6 19-24 meq/L Bedside Blood Gas Total CO2 < 5 6 24-31 mEq/l Bedside Blood Gas Base Excess (LAB) -26.0 -23.0 -9-1.8 meq/L Bedside Blood Gas O2 Saturation 99.0 99.0 90-95 % Kaolin Activated Coagulation Time 214 301 94-140 SECONDS Test 08/26/16 20:20 08/26/16 20:28 08/26/16 21:26 08/26/16 21:36 Range/Units Kaolin Activated Coagulation Time 219 94-140 SECONDS Bedside Blood Gas pH (LAB) 7.23 7.35-7.45 Bedside Blood Gas pCO2 (LAB) 15 35-46 mmHg Bedside Blood Gas pO2 (LAB) 118 80-95 mmHg Bedside Blood Gas HCO3 (LAB) 6 19-24 meq/L Bedside Blood Gas Total CO2 7 24-31 mEq/l Bedside Blood Gas Base Excess (LAB) -21.0 -9-1.8 meq/L Bedside Blood Gas O2 Saturation 98.0 90-95 % Bedside Glucose 248 70-99 mg/dl Sodium Level 140 136-145 mmol/L Potassium Level 4.1 3.5-5.1 mmol/L Chloride Level 108 98-107 mmol/L Carbon Dioxide Level 6 21-32 mmol/L Anion Gap 27.0 3-11 mmol/L Blood Urea Nitrogen 44 7-18 mg/dl Creatinine 0.95 0.60-1.40 mg/dl Est Creatinine Clear Calc Drug Dose 102.5 ml/min Estimated GFR () 104.8 Estimated GFR (Non- 90.4 BUN/Creatinine Ratio 46.3 10-20 Random Glucose 267 70-99 mg/dl Calcium Level 6.6 8.5-10.1 mg/dl Troponin I 3.010 0-0.045 ng/ml Test 08/26/16 23:08 Range/Units Blood Gas Sample Site L Radial Bedside Blood Gas pH (LAB) 7.23 7.35-7.45 Bedside Blood Gas pCO2 (LAB) 13 35-46 mmHg Bedside Blood Gas pO2 (LAB) 107 80-95 mmHg Bedside Blood Gas HCO3 (LAB) 6 19-24 meq/L Bedside Blood Gas Total CO2 6 24-31 mEq/l Bedside Blood Gas Base Excess (LAB) -22.0 -9-1.8 meq/L Bedside Blood Gas O2 Saturation 98.0 90-95 % Jaime Test Pass Oxygen Delivery Device Room Air LATEST ABG 08/26/16 23:08: pH 7.23, pCO2 13, Na+ 140, HCO3- 6, Cl- 108 Analysis: pH 7.23, pCO2 13 = Metabolic Acidosis Predicted pCO2 = (1.5 x HCO3) + 8 = 17. Actual pCO2 13. = Additional respiratory alkalosis Anion Gap = Na - Cl - HCO3 = 26 = Anion gap present Corrected bicarb = AG - 12 + HCO3 = 26 - 12 + 6= 20 = Non Anion Gap Metabolic Acidosis Diagnostic Radiology SINGLE VIEW CHEST CLINICAL HISTORY: Atrial fibrillation. Myocardial infarction. FINDINGS: An AP, portable, upright chest radiograph is obtained. No prior studies are available for comparison at the time of dictation. The examination is degraded by portable technique, motion artifact, and patient rotation. The heart is top normal for projection. There is atherosclerotic calcification of the thoracic aorta. The pulmonary vasculature is noncongested. No airspace consolidation, large pleural effusion, or pneumothorax is seen. The bony thorax is grossly intact. IMPRESSION: No acute cardiopulmonary abnormality is seen noting a motion degraded examination. EKG Initial EKG: Atrial fibrillation with RVR, 149bpm, with ST elevation in inferior leads with reciprocal changes in anterior leads Repeat EKG: A fib with RVR, 102bpm, ST elevation inferior leads with T wave inversion, Q waves anterior leads, and persistent reciprocal changes Impression Assessment and Plan 55 year old male who presented with inferior STEMI, s/p 2 drug eluting stent placement, who also presented with DKA and atrial fibrillation with RVR. Discussed case with Locator Specialist Dr. Maria Fernanda steen 7:10pm on 08/26/16. 1. Acute STEMI - As per Dr. Reed, continue with Intergrilin for 12 hours - Continue dual antiplatelet therapy - Eventually start beta girish and TATIANNA-I - Start high dose Statin 2. Metabolic acidosis with respiratory alkalosis, from diabetic ketoacidosis/ HHS as well as recent GI losses - BSG responded well to initial insulin infusion (10 units of IV regular insulin ), now 267. Goal BSG 250-350. - Will start on IV insulin infusion with D5W + 20KCL at 200mL/hour for now - BSGs hourly x 3, then if normal can space to q2h, then per protocol - BMP q4h (next draw at 1:30) 3. Atrial fibrillation with RVR - Converted to NSR in cardiac cath rn - Continue to monitor 4. Acute renal insufficiency - Cr to 0.97 from 1.70 on arrival, was likely pre-renal and now resolved - Continue to monitor 5. Nausea, vomiting, diarrhea - Zofran 4mg IV q4h PRN CODE STATUS: FULL VTE: Integrillin Dispo: ICU Advanced Directives Existing Living Will: No Existing Power of Psychologist Industrial Organizational: No VTE Prophylaxis VTE Risk Assessment Done? Y/N: Yes Risk Level: Moderate Resident Tracking Resident Involvement: Resident Care Provided Care Provided: [facility] Assessment and Plan Attending Addendum: I have physically seen and examined this patient, have directed their medical care, have supervised the medical residents activities, and agree with the H&P as noted above, with the following changes: NONE next The patient is awake, alert and oriented 3, complexion is somewhat cris and looks dehydrated, lying in bed and in no acute distress. HEENT--PERRL, EOMI, mucous membranes and oropharynx dry. Neck--supple, no JVD or bruits, thyroid normal, trachea midline, no adenopathy. Heart--normal S1 and S2, no extra beats, no murmurs, rubs or gallops. Lungs--clear bilaterally with good air movement, no respiratory distress, no accessory muscle use. Abdomen--normal bowel sounds and soft, nontender and nondistended, no hernias or masses, no organomegaly. Extremities--no cyanosis, clubbing or edema. There are good distal pulses b/l. Dermatologic--normal skin turgor, normal color, warm and dry, no abnormal lymph nodes, no rash except as noted above. Neurologic--cranial nerves II through XII grossly intact, motor and sensory examination normal. Rheumatologic--normal range of motion, nontender, muscles and joints. Psychiatric--normal affect. Assessment and Plan: Atrial fibrillation with RVR/STEMI with 100% RCA occlusion status post emergent stent placement--patient is admitted to the ICU postprocedure, with orders per interventional cardiology. New-onset diabetes mellitus with DKA--patient will receive 2 1/2 L of normal saline from the ED and during the procedure. He is being started on insulin drip and will follow serial BMP, magnesium, phosphorus and beta hydroxybutyric acid levels. When his glucose reaches 250, D5 will be placed in fluids and labs will be followed until and point. Acute renal insufficiency--creatinine during entrance labs was 1.7, and this will be followed with serial testing, in particular following closely to monitor for adverse effects with the necessary use of dye during cardiac assessment and treatment. We will check a fasting lipid profile, and hemoglobin A1c in addition to the above laboratories. He will have Zofran 4 mg IV every 6 hours when necessary available, and we placed on Protonix 40 mg IV for GI prophylaxis.
[2016-08-27 01:36] LABS: BETA-HYDROXYBUTYRATE 75.33 mg/dL (0.2-2.81)
[2016-08-27] MEDS ORDERED: NURSING VERBAL MED ORDER ONE (02:15)
[2016-08-27] MEDS: EPTIFIBATIDE INJ 75 MG PREMIXED IV SCH ×2 (03:32→10:22)
[2016-08-27 04:15] LABS: BUN/CREATININE RATIO 36.5 (10-20); CALCIUM 6.8 mg/dl (8.5-10.1); CREATININE 1.1 mg/dl (0.60-1.40); MAGNESIUM 2.1 mg/dl (1.8-2.4); POTASSIUM 3.9 mmol/L (3.5-5.1)
[2016-08-27 04:50] LABS: PHOSPHORUS 1.1 mg/dl (2.5-4.9)
[2016-08-27] MEDS: D5NSS + 20MEQ KCL 1,000 ML IV SCH ×2 (04:54→10:21)
[2016-08-27 05:05] LABS: BETA-HYDROXYBUTYRATE 50.06 mg/dL (0.2-2.81)
[2016-08-27] MEDS ORDERED: SODIUM PHOSPHATE 3 MMOL/1 ML INFUSION IV STA (06:04)
[2016-08-27] MEDS ORDERED: SODIUM CHLORIDE 0.9% IV SCH (06:30)
[2016-08-27] MEDS ORDERED: SODIUM PHOSPHATE IV SCH (06:30)
[2016-08-27 06:56] LABS: COMPLETE YES; IG% 0.3 %; LYMPH % 21.3 %; LYMPH ABS # 2.21 K/uL (1.2-3.4); MEAN CELL VOLUME 80.1 fL (80-100); MEAN CORPUSCULAR HEMOGLOBIN 28.7 pg (25-34); MEAN CORPUSCULAR HGB CONC 35.9 g/dl (32-36); MEAN PLATELET VOLUME 9.3 fL (7.4-10.4); NEUT % 76.4 %; PLATELET COUNT 283 K/uL (130-400); RED BLOOD COUNT 4.87 M/uL (4.7-6.1)
[2016-08-27 07:06] LABS: ESTIMATED AVERAGE GLUCOSE 306 mg/dl; HA1C FLAG Normal (Normal)
[2016-08-27] MEDS: SODIUM BICARB 8.4% INJ 50 MEQ/50 ML SYR IV SCH ×2 (07:22→07:23)
[2016-08-27] MEDS: INSULIN ASPART 100 UNITS/ML 3 ML PEN SC SCH ×4 (07:29→21:00)
--- NOTE | 2016-08-27 08:34 | Cardiology Follow-Up ---
Subjective Subjective Date of Service: Aug 27, 2016. Pt evaluation today including: conversation w/ patient, physical exam, chart review, lab review, review of studies, review of inpatient medication list Additional Details: Feels fatigued this morning. No chest pain. Shortness of breath improved. Still intermittent subjective fever/chills. No events on telemetry. Problem List Medical Problems: (1) Atrial fibrillation with RVR Status: Acute (2) DKA (diabetic ketoacidoses) Status: Acute (3) ST elevation [place] (STEMI) Status: Acute (4) ST elevation myocardial infarction (STEMI) of inferior wall Status: Acute Review of Systems Constitutional: + chills, + fever Respiratory: No cough Cardiac: No chest pain Abdomen: + nausea, No pain Neurologic: + weakness, No numbness/tingling Heme: No abnormal bleeding/bruising Endo: + excessive thirst, + excessive urination Skin: No rash Objective Vital Signs Last Vital Signs Documentation Date Time Temp Pulse Resp B/P Pulse Ox O2 Delivery O2 Flow Rate FiO2 08/27/16 06:00 78 106/56 97 08/27/16 04:00 Room Air 08/27/16 03:01 36.4 08/26/16 23:16 22 08/26/16 18:50 3.0 Physical Exam: General Appearance: no apparent distress Neck: no JVD Respiratory/Chest: lungs clear, normal breath sounds Cardiovascular: regular rate, rhythm, no edema, no JVD Abdomen: non tender, soft Extremities: no pedal edema, no calf tenderness Neurologic/Psychiatric: alert, normal mood/affect Skin: warm/dry, no rash Assessment and Plan 1. Inferior STEMI s/p PPCI with MARILYN x2 to proximal to mid RCA 2. DKA/newly diagnosed diabetes 3. AF + RVR 4. ION 5. ? Viral illness Hemodynamically and electrically stable overnight. No chest pain. Minimal troponin elevation. Suspect chronic/subtotal RCA occlusion worsened in the setting of acute illness AG beginning to close overnight on insulin drip/D5 fluids -- Finish integrilin infusion this AM -- Continue ASA/plavix -- Echo pending this morning -- start metoprolol. TATIANNA as BP allows -- high dose statin -- DKA management per ICU/hospital medicine team. Medications: Current Inpatient Medications Medications (Trade) Dose Ordered Sig/Raymond Route Start Time Stop Time Status Last Admin Dose Admin Aspirin (Ecotrin Tab) 81 mg QAM PO 08/27/16 09:00 09/26/16 08:59 Clopidogrel Bisulfate (plAVix TAB) 75 mg QAM PO 08/27/16 09:00 09/26/16 08:59 Atorvastatin Calcium (Lipitor Tab) 80 mg QAM PO 08/27/16 09:00 09/26/16 08:59 Metoprolol Tartrate (Lopressor Tab) 25 mg Q12 PO 08/27/16 09:00 09/26/16 08:59 Lisinopril (Zestril Tab) 5 mg QAM PO 08/27/16 09:00 09/26/16 08:59 Acetaminophen 650 mg 650 mg Q4H PRN PO 08/26/16 22:00 09/25/16 21:59 Eptifibatide (Integrilin Inj) 100 ml @ 14 mls/hr Q7H9M IV 08/26/16 22:15 08/27/16 08:59 08/27/16 03:32 14 MLS/HR Miscellaneous (Stop Order) 1 ea TODAY@0900 ONCE N/A 08/27/16 09:00 08/27/16 09:01 Ondansetron HCl 4 mg 4 mg Q6H PRN IV 08/26/16 22:45 09/25/16 22:44 08/27/16 06:08 4 MG Pantoprazole Sodium/Syringe (Protonix Inj/ Syringe) 10 ml @ 5 mls/min DAILY@11 IV 08/27/16 11:00 09/26/16 10:59 Insulin Aspart SLIDING SCALE PCHS SC 08/27/16 08:00 09/26/16 07:59 Potassium Chloride/Dextrose/ Sod Cl 1,000 ml @ 200 mls/hr Q5H IV 08/26/16 23:45 09/25/16 23:44 08/27/16 04:54 200 MLS/HR Insulin Human Regular/Sodium Chloride (novoLIN-R/Nss 250ml) 252.5 ml @ 0 mls/hr DAILY@1130 IV 08/26/16 23:45 09/25/16 23:44 08/26/16 23:45 3.2 MLS/HR Glucose (Glucose 40% Gel) UD PRN PO 08/26/16 23:30 09/25/16 23:29 Glucose (Glucose Chew Tab) 1 tabs UD PRN PO 08/26/16 23:30 09/25/16 23:29 Dextrose (Dextrose 50% 50ML Syringe) 50 ml UD PRN IV 08/26/16 23:30 09/25/16 23:29 Glucagon (Glucagon Inj) 1 mg UD PRN SQ 08/26/16 23:30 09/25/16 23:29 Miscellaneous Information 1 ea 1 ea UD PRN N/A 08/26/16 23:45 09/25/16 23:44 Sodium Phosphate/ Sodium Chloride (Sodium Phosphate Inj/Nss 1000ml) 1,010 ml @ 202 mls/hr TODAY@0630 IV 08/27/16 06:30 08/27/16 11:29 08/27/16 06:34 202 MLS/HR Lab Results: 08/27/16 03:50 Red Blood Count 4.87, Mean Corpuscular Volume 80.1, Mean Corpuscular Hemoglobin 28.7, Mean Corpuscular Hemoglobin Concent 35.9, Mean Platelet Volume 9.3, Neutrophils (%) (Auto) 76.4, Lymphocytes (%) (Auto) 21.3, Monocytes (%) (Auto) 2.0, Eosinophils (%) (Auto) 0.0, Basophils (%) (Auto) 0.0, Neutrophils # (Auto) 7.95, Lymphocytes # (Auto) 2.21, Monocytes # (Auto) 0.21, Eosinophils # (Auto) 0.00, Basophils # (Auto) 0.00 Test 08/26/16 18:08 08/26/16 18:18 08/26/16 18:34 08/26/16 19:03 Prothrombin Time 10.8 SECONDS (9.0-12.0) Prothromb Time International Ratio 1.0 (0.9-1.1) Activated Partial Thromboplast Time 33.4 SECONDS (21.0-31.0) Partial Thromboplastin Ratio 1.3 Estimated Average Glucose 306 mg/dl Hemoglobin A1c 12.3 % (4.5-5.6) Total Bilirubin 1.0 mg/dl (0.2-1) Direct Bilirubin 0.2 mg/dl (0-0.2) Aspartate Amino Transf (AST/SGOT) 15 U/L (15-37) Alanine Aminotransferase (ALT/SGPT) 32 U/L (12-78) Alkaline Phosphatase 123 U/L (45-117) Total Creatine Kinase 113 U/L (39-308) Creatine Kinase MB 5.4 ng/ml (0.5-3.6) Creatine Kinase MB Ratio 4.8 (0-3.0) Total Protein 8.6 gm/dl (6.4-8.2) Albumin 3.5 gm/dl (3.4-5.0) Bedside Troponin I 2.500 ng/ml (0-0.045) Arterial Blood pH 7.11 (7.35-7.45) Arterial Blood Partial Pressure CO2 12 mmHg (35-46) Arterial Blood Partial Pressure O2 173 mm/Hg (80-95) Arterial Blood HCO3 4 mmol/L (19-24) Arterial Blood Oxygen Saturation 99.1 % (90-95) Arterial Blood Base Excess -23.2 mEq/L (-9-1.8) Arterial Blood Gas Delivery 3 L Jaime Test (POS) Bedside Hemoglobin 15.3 g/dl (14.0-18.0) Bedside Hematocrit 45 % (42-52) Bedside Sodium 133 mEq/L (135-144) Bedside Potassium 3.6 mEq/L (3.3-5.0) Bedside Chloride 106 mEq/L (101-112) Bedside Total CO2 6 mEq/l (24-31) Bedside Blood Urea Nitrogen 38 mg/dl (7-18) Bedside Creatinine 0.6 mg/dl (0.6-1.3) Bedside Glucose (other) 371 mg/dl (70-99) Bedside Ionized Calcium (Nat) 1.06 mmol/l (1.12-1.32) Test 08/26/16 20:20 08/26/16 23:08 08/27/16 03:50 08/27/16 07:07 Kaolin Activated Coagulation Time 219 SECONDS (94-140) Blood Gas Sample Site L Radial Bedside Blood Gas pH (LAB) 7.23 (7.35-7.45) Bedside Blood Gas pCO2 (LAB) 13 mmHg (35-46) Bedside Blood Gas pO2 (LAB) 107 mmHg (80-95) Bedside Blood Gas HCO3 (LAB) 6 meq/L (19-24) Bedside Blood Gas Total CO2 6 mEq/l (24-31) Bedside Blood Gas Base Excess (LAB) -22.0 meq/L (-9-1.8) Bedside Blood Gas O2 Saturation 98.0 % (90-95) Jaime Test Pass Oxygen Delivery Device Room Air White Blood Count 10.40 K/uL (4.8-10.8) Red Blood Count 4.87 M/uL (4.7-6.1) Hemoglobin 14.0 g/dL (14.0-18.0) Hematocrit 39.0 % (42-52) Mean Corpuscular Volume 80.1 fL (80-100) Mean Corpuscular Hemoglobin 28.7 pg (25-34) Mean Corpuscular Hemoglobin Concent 35.9 g/dl (32-36) Platelet Count 283 K/uL (130-400) Mean Platelet Volume 9.3 fL (7.4-10.4) Neutrophils (%) (Auto) 76.4 % Lymphocytes (%) (Auto) 21.3 % Monocytes (%) (Auto) 2.0 % Eosinophils (%) (Auto) 0.0 % Basophils (%) (Auto) 0.0 % Neutrophils # (Auto) 7.95 K/uL (1.4-6.5) Lymphocytes # (Auto) 2.21 K/uL (1.2-3.4) Monocytes # (Auto) 0.21 K/uL (0.11-0.59) Eosinophils # (Auto) 0.00 K/uL (0-0.5) Basophils # (Auto) 0.00 K/uL (0-0.2) RDW Standard Deviation 38.1 fL (36.4-46.3) RDW Coefficient of Variation 13.2 % (11.5-14.5) Immature Granulocyte % (Auto) 0.3 % Immature Granulocyte # (Auto) 0.03 K/uL (0.00-0.02) Est Creatinine Clear Calc Drug Dose 81.7 ml/min Troponin I 4.630 ng/ml (0-0.045) LDL Cholesterol Direct 90 mg/dl Beta-Hydroxybutyric Acid 50.06 mg/dL (0.2-2.81) Bedside Glucose 196 mg/dl (70-99) Test 08/27/16 08:00
[2016-08-27] MEDS: ASPIRIN 81 MG ECTAB PO SCH (08:38)
[2016-08-27] MEDS: ATORVASTATIN 40 MG TAB PO SCH (08:38)
[2016-08-27] MEDS: METOPROLOL TARTRATE 25 MG TAB PO SCH ×2 (08:38→21:18)
[2016-08-27] MEDS: CLOPIDOGREL BISULFATE 75 MG TAB PO SCH (08:38)
[2016-08-27] MEDS ORDERED: Integrelin infusion --> STOP ORDER ONE (09:00)
[2016-08-27 09:04] LABS: BUN/CREATININE RATIO 35.7 (10-20); CALCIUM 6.9 mg/dl (8.5-10.1); CREATININE 0.99 mg/dl (0.60-1.40); MAGNESIUM 2.2 mg/dl (1.8-2.4); POTASSIUM 3.4 mmol/L (3.5-5.1)
[2016-08-27] MEDS ORDERED: POTASSIUM CHLORIDE 10 MEQ TABCR PO ONE (09:30)
[2016-08-27] MEDS: LISINOPRIL 5 MG TAB PO SCH (10:20)
[2016-08-27] MEDS ORDERED: PANTOprazole INJ 40 MG in SYRINGE 0 ML IV SCH (11:00)
--- NOTE | 2016-08-27 11:45 | Critical Care Consultation ---
Critical Care Consultation Date of Consultation: Aug 27, 2016. Attending Physician: Carmen De Oliveira DO Reason for Consultation: DKA, STEMI History of Present Illness This is a 55 yo m that presented to the ED with Afibb with RVR and EKG changes indicating a inferior MO. At this time a heart alert was called and he was brought to the offset label rewinder. His A fibb resolved prior to offset label rewinder after receiving 5 mg of IV Lopressor. The patient was found to have moderate disease of the LAD and OM2 and 100% occlusion of the RCA with a left and right collateral. Two stents were placed in the RCA and patient was placed on Integrilin and loaded with 600 mg of Plavix. He was also given 4 amps of Bicarb will in the offset label rewinder as he was also found to be in severe metabolic acidosis secondary to DKA. His initial labs were a pH of 7.11, AG 27 and BSG in the 400s. When discussing with the patient about what led up to his ED admission he states that on Saturday he was feeling generally unwell with increasing weakness and shortness of breath since then. He also was finding himself to be very thirsty and would quench his thirst with sugary drinks. Considering he was not improving he decided to come to the ED. He never at any point had chest pain, diaphoresis, presyncope/ syncope. He did have some abdominal pain which was "mild" but denies this currently. He currently denies any of these symptoms. He has not seen a doctor in 10+ years and was unaware of his diagnosis of diabetes. He does not take any medications at home. His mother had history of MO x2 and DMII. ROS of 10 systems completed and negative aside from what is noted above Past Medical/Surgical History nil Family History Diabetes mellitus Heart disease Social History Smoking Status: Former Smoker (Stopped 5 years ago) Smokeless Tobacco Use: No Alcohol Use: occasionally Drug Use: none Marital Status: Housing Status: lives with significant other Occupation Status: unemployed Allergies Coded Allergies: No Known Allergies (Unverified , 08/26/16) Home Medications No Active Prescriptions or Reported Meds Current Inpatient Medications Current Inpatient Medications Medications (Trade) Dose Ordered Sig/Raymond Route Start Time Stop Time Status Last Admin Dose Admin Aspirin (Ecotrin Tab) 81 mg QAM PO 08/27/16 09:00 09/26/16 08:59 08/27/16 08:38 81 MG Clopidogrel Bisulfate (plAVix TAB) 75 mg QAM PO 08/27/16 09:00 09/26/16 08:59 08/27/16 08:38 75 MG Atorvastatin Calcium (Lipitor Tab) 80 mg QAM PO 08/27/16 09:00 09/26/16 08:59 08/27/16 08:38 80 MG Metoprolol Tartrate (Lopressor Tab) 25 mg Q12 PO 08/27/16 09:00 09/26/16 08:59 08/27/16 08:38 25 MG Lisinopril (Zestril Tab) 5 mg QAM PO 08/27/16 09:00 09/26/16 08:59 08/27/16 10:20 5 MG Acetaminophen (Tylenol Tab) 650 mg Q4H PRN PO 08/26/16 22:00 09/25/16 21:59 Ondansetron HCl (Zofran Inj) 4 mg Q6H PRN IV 08/26/16 22:45 09/25/16 22:44 08/27/16 06:08 4 MG Insulin Aspart SLIDING SCALE PCHS SC 08/27/16 08:00 09/26/16 07:59 Potassium Chloride/Dextrose/ Sod Cl 1,000 ml @ 200 mls/hr Q5H IV 08/26/16 23:45 09/25/16 23:44 08/27/16 10:21 200 MLS/HR Insulin Human Regular/Sodium Chloride (novoLIN-R/Nss 250ml) 252.5 ml @ 0 mls/hr DAILY@1130 IV 08/26/16 23:45 09/25/16 23:44 08/26/16 23:45 3.2 MLS/HR Glucose (Glucose 40% Gel) UD PRN PO 08/26/16 23:30 09/25/16 23:29 Glucose (Glucose Chew Tab) 1 tabs UD PRN PO 08/26/16 23:30 09/25/16 23:29 Dextrose (Dextrose 50% 50ML Syringe) 50 ml UD PRN IV 08/26/16 23:30 09/25/16 23:29 Glucagon (Glucagon Inj) 1 mg UD PRN SQ 08/26/16 23:30 09/25/16 23:29 Miscellaneous Information 1 ea 1 ea UD PRN N/A 08/26/16 23:45 09/25/16 23:44 Sodium Phosphate/ Sodium Chloride (Sodium Phosphate Inj/Nss 1000ml) 1,010 ml @ 202 mls/hr TODAY@0630 IV 08/27/16 06:30 08/27/16 11:29 08/27/16 06:34 202 MLS/HR Potassium Chloride (Klor-Con M10) 60 meq TODAY@1600 PO 08/27/16 16:00 08/27/16 16:01 Review of Systems Constitutional: No fever Eyes: No worsening of vision ENT: No hearing loss Respiratory: No cough, No dyspnea at rest, No dyspnea on exertion, No shortness of breath, No sputum, No wheezing Cardiovascular: No chest pain Abdomen: No constipation, No diarrhea, No nausea, No pain, No vomiting Musculoskeletal: No joint pain, No muscle pain Neurologic: + weakness, No balance problems, No numbness/tingling Endocrine: + fatigue Integumentary: No rash Physical Exam Date Time Temp Pulse Resp B/P Pulse Ox O2 Delivery O2 Flow Rate FiO2 08/27/16 10:00 116 106/63 95 Room Air 08/27/16 09:00 117 18 115/64 97 Room Air 08/27/16 08:00 36.6 124 16 103/61 98 Room Air 08/27/16 08:00 Room Air 08/27/16 08:00 Room Air 08/27/16 07:01 78 105/58 98 08/27/16 06:00 78 106/56 97 08/27/16 05:01 78 110/59 98 08/27/16 04:00 81 107/61 97 08/27/16 04:00 81 111/60 97 08/27/16 04:00 97 Room Air 08/27/16 03:01 36.4 82 107/59 97 08/27/16 03:00 83 08/27/16 02:01 85 131/64 99 08/27/16 02:01 36.3 85 131/64 99 08/27/16 02:00 84 99 08/27/16 01:01 83 134/62 99 08/27/16 00:00 82 119/65 98 08/27/16 00:00 98 Room Air 08/26/16 23:16 207 22 146/74 89 08/26/16 23:15 80 99 08/26/16 23:01 74 20 129/73 08/26/16 23:00 77 98 08/26/16 22:46 83 24 139/72 100 08/26/16 22:45 81 98 08/26/16 22:31 88 22 125/77 98 08/26/16 22:30 81 99 08/26/16 22:15 84 20 132/111 100 Room Air 08/26/16 22:05 35.9 82 26 132/111 98 Room Air 08/26/16 22:03 36.0 83 24 124/69 100 Room Air 08/26/16 21:47 82 16 120/67 95 Room Air 08/26/16 21:32 85 16 105/55 95 Room Air 08/26/16 18:50 91 30 120/90 97 Nasal Cannula 3.0 08/26/16 18:43 117 08/26/16 18:36 108 30 134/75 99 Nasal Cannula 2.0 08/26/16 18:30 36.0 08/26/16 18:17 90 30 128/83 97 Nasal Cannula 2.0 08/26/16 18:15 83 08/26/16 18:15 142 128/83 08/26/16 18:10 Nasal Cannula 2.0 08/26/16 17:59 146/92 08/26/16 17:52 155 30 128/72 90 Room Air General Appearance: well-appearing, no apparent distress Head: normocephalic, atraumatic Eyes: PERRLA, EOMI, sclerae normal, conjunctivae normal ENT: other (Inspection is WNL) Neck: normal range of motion, no tenderness Respiratory: breath sounds normal, clear to auscultation, no respiratory distress Cardiovasular: regular rate/rhythm, no murmur Abdomen: non tender, normal bowel sounds, no rebound, other (no distention) Back: normal inspection Upper Extremities: no deformity, normal ROM Lower Extremities: no edema, normal ROM Neuro: alert, oriented x 3 Psychiatric: normal affect Laboratory Results Last 24 Hours Test 08/26/16 17:59 08/26/16 18:08 08/26/16 18:14 08/26/16 18:18 Bedside Glucose 458 mg/dl White Blood Count 16.97 K/uL Red Blood Count 6.36 M/uL Hemoglobin 18.7 g/dL Hematocrit 51.4 % Mean Corpuscular Volume 80.8 fL Mean Corpuscular Hemoglobin 29.4 pg Mean Corpuscular Hemoglobin Concent 36.4 g/dl Platelet Count 410 K/uL Mean Platelet Volume 9.7 fL Neutrophils (%) (Auto) 83.5 % Lymphocytes (%) (Auto) 12.3 % Monocytes (%) (Auto) 3.7 % Eosinophils (%) (Auto) 0.0 % Basophils (%) (Auto) 0.1 % Neutrophils # (Auto) 14.18 K/uL Lymphocytes # (Auto) 2.08 K/uL Monocytes # (Auto) 0.63 K/uL Eosinophils # (Auto) 0.00 K/uL Basophils # (Auto) 0.01 K/uL RDW Standard Deviation 38.7 fL RDW Coefficient of Variation 13.1 % Immature Granulocyte % (Auto) 0.4 % Immature Granulocyte # (Auto) 0.07 K/uL Prothrombin Time 10.8 SECONDS Prothromb Time International Ratio 1.0 Activated Partial Thromboplast Time 33.4 SECONDS Partial Thromboplastin Ratio 1.3 Sodium Level 129 mmol/L Potassium Level 4.7 mmol/L Chloride Level 95 mmol/L Carbon Dioxide Level 7 mmol/L Anion Gap 27.0 mmol/L 27.0 mmol/L Blood Urea Nitrogen 43 mg/dl Creatinine 1.70 mg/dl Est Creatinine Clear Calc Drug Dose 57.3 ml/min Estimated GFR () 51.8 Estimated GFR (Non- 44.7 BUN/Creatinine Ratio 25.5 Random Glucose 480 mg/dl Estimated Average Glucose 306 mg/dl Hemoglobin A1c 12.3 % Calcium Level 8.5 mg/dl Magnesium Level 2.7 mg/dl Total Bilirubin 1.0 mg/dl Direct Bilirubin 0.2 mg/dl Aspartate Amino Transf (AST/SGOT) 15 U/L Alanine Aminotransferase (ALT/SGPT) 32 U/L Alkaline Phosphatase 123 U/L Total Creatine Kinase 113 U/L Creatine Kinase MB 5.4 ng/ml Creatine Kinase MB Ratio 4.8 Total Protein 8.6 gm/dl Albumin 3.5 gm/dl Beta-Hydroxybutyric Acid 91.22 mg/dL Bedside Hemoglobin 19.4 g/dl Bedside Hematocrit 57 % Bedside Sodium 129 mEq/L Bedside Potassium 4.8 mEq/L Bedside Chloride 101 mEq/L Bedside Total CO2 7 mEq/l Bedside Blood Urea Nitrogen 43 mg/dl Bedside Creatinine 1.0 mg/dl Bedside Glucose (other) 492 mg/dl Bedside Ionized Calcium (Nat) 1.19 mmol/l Bedside Troponin I 2.500 ng/ml Test 08/26/16 18:32 08/26/16 18:34 08/26/16 18:49 08/26/16 19:03 Bedside Blood Gas pH (LAB) 7.10 Bedside Blood Gas pCO2 (LAB) 13 mmHg Bedside Blood Gas pO2 (LAB) 164 mmHg Bedside Blood Gas HCO3 (LAB) 4 meq/L Bedside Blood Gas Total CO2 < 5 mEq/l Bedside Blood Gas Base Excess (LAB) -26.0 meq/L Bedside Blood Gas O2 Saturation 99.0 % Arterial Blood pH 7.11 Arterial Blood Partial Pressure CO2 12 mmHg Arterial Blood Partial Pressure O2 173 mm/Hg Arterial Blood HCO3 4 mmol/L Arterial Blood Oxygen Saturation 99.1 % Arterial Blood Base Excess -23.2 mEq/L Arterial Blood Gas Delivery 3 L Jaime Test Kaolin Activated Coagulation Time 209 SECONDS Bedside Hemoglobin 15.3 g/dl Bedside Hematocrit 45 % Bedside Sodium 133 mEq/L Bedside Potassium 3.6 mEq/L Bedside Chloride 106 mEq/L Bedside Total CO2 6 mEq/l Anion Gap 26.0 mmol/L Bedside Blood Urea Nitrogen 38 mg/dl Bedside Creatinine 0.6 mg/dl Bedside Glucose (other) 371 mg/dl Bedside Ionized Calcium (Nat) 1.06 mmol/l Test 08/26/16 19:09 08/26/16 19:12 08/26/16 19:35 08/26/16 19:44 Bedside Blood Gas pH (LAB) 7.11 7.18 Bedside Blood Gas pCO2 (LAB) 12 mmHg 15 mmHg Bedside Blood Gas pO2 (LAB) 159 mmHg 157 mmHg Bedside Blood Gas HCO3 (LAB) 4 meq/L 6 meq/L Bedside Blood Gas Total CO2 < 5 mEq/l 6 mEq/l Bedside Blood Gas Base Excess (LAB) -26.0 meq/L -23.0 meq/L Bedside Blood Gas O2 Saturation 99.0 % 99.0 % Kaolin Activated Coagulation Time 214 SECONDS 301 SECONDS Test 08/26/16 20:20 08/26/16 20:28 08/26/16 21:26 08/26/16 21:36 Kaolin Activated Coagulation Time 219 SECONDS Bedside Blood Gas pH (LAB) 7.23 Bedside Blood Gas pCO2 (LAB) 15 mmHg Bedside Blood Gas pO2 (LAB) 118 mmHg Bedside Blood Gas HCO3 (LAB) 6 meq/L Bedside Blood Gas Total CO2 7 mEq/l Bedside Blood Gas Base Excess (LAB) -21.0 meq/L Bedside Blood Gas O2 Saturation 98.0 % Bedside Glucose 248 mg/dl Sodium Level 140 mmol/L Potassium Level 4.1 mmol/L Chloride Level 108 mmol/L Carbon Dioxide Level 6 mmol/L Anion Gap 27.0 mmol/L Blood Urea Nitrogen 44 mg/dl Creatinine 0.95 mg/dl Est Creatinine Clear Calc Drug Dose 102.5 ml/min Estimated GFR () 104.8 Estimated GFR (Non- 90.4 BUN/Creatinine Ratio 46.3 Random Glucose 267 mg/dl Calcium Level 6.6 mg/dl Troponin I 3.010 ng/ml Beta-Hydroxybutyric Acid 75.33 mg/dL Test 08/26/16 22:06 08/26/16 23:08 08/26/16 23:37 08/27/16 00:56 Bedside Glucose 298 mg/dl 247 mg/dl 262 mg/dl Blood Gas Sample Site L Radial Bedside Blood Gas pH (LAB) 7.23 Bedside Blood Gas pCO2 (LAB) 13 mmHg Bedside Blood Gas pO2 (LAB) 107 mmHg Bedside Blood Gas HCO3 (LAB) 6 meq/L Bedside Blood Gas Total CO2 6 mEq/l Bedside Blood Gas Base Excess (LAB) -22.0 meq/L Bedside Blood Gas O2 Saturation 98.0 % Jaime Test Pass Oxygen Delivery Device Room Air Test 08/27/16 03:50 08/27/16 03:55 08/27/16 04:53 08/27/16 06:01 White Blood Count 10.40 K/uL Red Blood Count 4.87 M/uL Hemoglobin 14.0 g/dL Hematocrit 39.0 % Mean Corpuscular Volume 80.1 fL Mean Corpuscular Hemoglobin 28.7 pg Mean Corpuscular Hemoglobin Concent 35.9 g/dl Platelet Count 283 K/uL Mean Platelet Volume 9.3 fL Neutrophils (%) (Auto) 76.4 % Lymphocytes (%) (Auto) 21.3 % Monocytes (%) (Auto) 2.0 % Eosinophils (%) (Auto) 0.0 % Basophils (%) (Auto) 0.0 % Neutrophils # (Auto) 7.95 K/uL Lymphocytes # (Auto) 2.21 K/uL Monocytes # (Auto) 0.21 K/uL Eosinophils # (Auto) 0.00 K/uL Basophils # (Auto) 0.00 K/uL RDW Standard Deviation 38.1 fL RDW Coefficient of Variation 13.2 % Immature Granulocyte % (Auto) 0.3 % Immature Granulocyte # (Auto) 0.03 K/uL Venous Blood pH 7.31 Sodium Level 141 mmol/L Potassium Level 3.9 mmol/L Chloride Level 109 mmol/L Carbon Dioxide Level 13 mmol/L Anion Gap 19.0 mmol/L Blood Urea Nitrogen 40 mg/dl Creatinine 1.10 mg/dl Est Creatinine Clear Calc Drug Dose 81.7 ml/min Estimated GFR () 87.7 Estimated GFR (Non- 75.7 BUN/Creatinine Ratio 36.5 Random Glucose 270 mg/dl Calcium Level 6.8 mg/dl Phosphorus Level 1.1 mg/dl Magnesium Level 2.1 mg/dl Troponin I 4.630 ng/ml LDL Cholesterol Direct 90 mg/dl Beta-Hydroxybutyric Acid 50.06 mg/dL Bedside Glucose 326 mg/dl 256 mg/dl 356 mg/dl Test 08/27/16 07:07 08/27/16 08:29 08/27/16 08:33 08/27/16 09:45 Bedside Glucose 196 mg/dl 224 mg/dl 208 mg/dl Venous Blood pH 7.34 Sodium Level 140 mmol/L Potassium Level 3.4 mmol/L Chloride Level 110 mmol/L Carbon Dioxide Level 15 mmol/L Anion Gap 15.0 mmol/L Blood Urea Nitrogen 35 mg/dl Creatinine 0.99 mg/dl Est Creatinine Clear Calc Drug Dose 90.8 ml/min Estimated GFR () 99.7 Estimated GFR (Non- 86.0 BUN/Creatinine Ratio 35.7 Random Glucose 208 mg/dl Calcium Level 6.9 mg/dl Phosphorus Level 2.0 mg/dl Magnesium Level 2.2 mg/dl Diagnostic Results SINGLE VIEW CHEST CLINICAL HISTORY: Atrial fibrillation. Myocardial infarction. FINDINGS: An AP, portable, upright chest radiograph is obtained. No prior studies are available for comparison at the time of dictation. The examination is degraded by portable technique, motion artifact, and patient rotation. The heart is top normal for projection. There is atherosclerotic calcification of the thoracic aorta. The pulmonary vasculature is noncongested. No airspace consolidation, large pleural effusion, or pneumothorax is seen. The bony thorax is grossly intact. IMPRESSION: No acute cardiopulmonary abnormality is seen noting a motion degraded examination. Assessment & Plan 1. s/p stent placement in RCA for inferior STEMI 2. AG Metabolic acidosis secondary to DKA 3. Afibb with RVR 4. Hypophosphatemia 5. Hypokalemia NVS - alert and oriented - does not seem interested in education about health - monitor for signs of delirium RVS - O2 per [facility] protocol [facility] - Cardio consult- appreciate input - Integrillin d/c at 0900 - Cont plavix and ASA - continue Metoprolol 25 mg, ACEI - continue statin - monitor for episodes of RVR GI - Protonix d/c - DMII diet RENAL - monitor I&O ENDO - Insulin drip @ 3.2 - begin transition -BSG AC HS once drip has been d/c - DM educator FEN - 60 Meq of KCL in am and in pm and recheck throughout the day - Sodium phos was administered, plan is to recheck at 1600 - if this is still low will start Neutraphos HEME - Integrilin, defer DVT prophylaxis for now Resident Physician Supervision Note: Dr. Dupont was resident physician during care of patient. I separately evaluated patient and did history and exam. I discussed the case with the resident and generally agree with the findings and plan. Elpidio continues to close, into space was closed will be able to transition out of the ICU. Ordered a in service educator as this is a new diagnosis for him. Patient critically ill due to persistent DKA I have personally spent 30 minutes of critical care time in the direct management of this patient. This is a life/limb threatening event. This includes time spent evaluating patient, direct bedside care, chart review, placing orders, interpretation of diagnostic studies, discussion with consultants, patient, and family members, as well as other required patient management activities. This time is exclusive of all separately billable procedures, and teaching time and separate from and in addition to any other critical care service time. Documented By: Davian Land DO
[2016-08-27 12:36] LABS: CALCIUM 6.9 mg/dl (8.5-10.1); CREATININE 0.96 mg/dl (0.60-1.40); MAGNESIUM 2.2 mg/dl (1.8-2.4); PHOSPHORUS 1.7 mg/dl (2.5-4.9); POTASSIUM 3.6 mmol/L (3.5-5.1)
[2016-08-27] MEDS ORDERED: INSULIN GLARGINE SOLOSTAR 100 UNITS/ML 3 ML PEN SC ONE (13:15)
[2016-08-27] MEDS ORDERED: POTASSIUM PHOSPHATE INJ 21 MMOL in SODIUM CHLORIDE 0.9% 500ML 500 ML IV ONE (15:30)
[2016-08-27] MEDS: NSS + 20MEQ KCL 1000ML 1,000 ML IV SCH (15:32)
[2016-08-27] MEDS ORDERED: POTASSIUM CHLORIDE 10 MEQ TABCR PO SCH (16:00)
[2016-08-27] MEDS ORDERED: POTASSIUM CHLORIDE 20 MEQ/15 ML UDC PO SCH (16:00)
--- NOTE | 2016-08-27 16:08 | Pharmacy Progress Note ---
Glycemic Control Intl Consult Date of Service Aug 27, 2016. Scope Glycemic Pharmacist consulted by Dr Crandall on 08/27/16 for glycemic control and to write orders per [facility] inpatient glycemic control protocol Objective Weight (Kilograms): 85.600 Accuchecks BSG (last 24hrs): Test 08/26/16 17:59 08/26/16 18:08 08/26/16 21:26 08/26/16 21:36 Bedside Glucose 458 mg/dl (70-99) 248 mg/dl (70-99) Random Glucose 480 mg/dl (70-99) 267 mg/dl (70-99) Test 08/26/16 22:06 08/26/16 23:37 08/27/16 00:56 08/27/16 02:50 Bedside Glucose 298 mg/dl (70-99) 247 mg/dl (70-99) 262 mg/dl (70-99) 283 mg/dl (70-99) Test 08/27/16 03:50 08/27/16 03:55 08/27/16 04:53 08/27/16 06:01 Random Glucose 270 mg/dl (70-99) Bedside Glucose 326 mg/dl (70-99) 256 mg/dl (70-99) 356 mg/dl (70-99) Test 08/27/16 07:07 08/27/16 08:29 08/27/16 08:33 08/27/16 09:45 Bedside Glucose 196 mg/dl (70-99) 224 mg/dl (70-99) 208 mg/dl (70-99) Random Glucose 208 mg/dl (70-99) Test 08/27/16 10:53 08/27/16 11:51 08/27/16 12:07 Bedside Glucose 207 mg/dl (70-99) 230 mg/dl (70-99) Random Glucose 205 mg/dl (70-99) Laboratory Data (last 24hrs) Test 08/26/16 18:08 08/26/16 18:14 08/26/16 19:03 08/26/16 21:36 Anion Gap 27.0 mmol/L 27.0 mmol/L 26.0 mmol/L 27.0 mmol/L BUN/Creatinine Ratio 25.5 46.3 Blood Urea Nitrogen 43 mg/dl 44 mg/dl Creatinine 1.70 mg/dl 0.95 mg/dl Hemoglobin A1c 12.3 % Potassium Level 4.7 mmol/L 4.1 mmol/L Sodium Level 129 mmol/L 140 mmol/L White Blood Count 16.97 K/uL Red Blood Count 6.36 M/uL Hemoglobin 18.7 g/dL Hematocrit 51.4 % Mean Corpuscular Volume 80.8 fL Mean Corpuscular Hemoglobin 29.4 pg Mean Corpuscular Hemoglobin Concent 36.4 g/dl Platelet Count 410 K/uL Mean Platelet Volume 9.7 fL Neutrophils (%) (Auto) 83.5 % Lymphocytes (%) (Auto) 12.3 % Monocytes (%) (Auto) 3.7 % Eosinophils (%) (Auto) 0.0 % Basophils (%) (Auto) 0.1 % Neutrophils # (Auto) 14.18 K/uL Lymphocytes # (Auto) 2.08 K/uL Monocytes # (Auto) 0.63 K/uL Eosinophils # (Auto) 0.00 K/uL Basophils # (Auto) 0.01 K/uL Test 08/27/16 03:50 08/27/16 08:29 08/27/16 12:07 Anion Gap 19.0 mmol/L 15.0 mmol/L 11.0 mmol/L BUN/Creatinine Ratio 36.5 35.7 28.0 Blood Urea Nitrogen 40 mg/dl 35 mg/dl 27 mg/dl Creatinine 1.10 mg/dl 0.99 mg/dl 0.96 mg/dl Potassium Level 3.9 mmol/L 3.4 mmol/L 3.6 mmol/L Sodium Level 141 mmol/L 140 mmol/L 141 mmol/L White Blood Count 10.40 K/uL Red Blood Count 4.87 M/uL Hemoglobin 14.0 g/dL Hematocrit 39.0 % Mean Corpuscular Volume 80.1 fL Mean Corpuscular Hemoglobin 28.7 pg Mean Corpuscular Hemoglobin Concent 35.9 g/dl Platelet Count 283 K/uL Mean Platelet Volume 9.3 fL Neutrophils (%) (Auto) 76.4 % Lymphocytes (%) (Auto) 21.3 % Monocytes (%) (Auto) 2.0 % Eosinophils (%) (Auto) 0.0 % Basophils (%) (Auto) 0.0 % Neutrophils # (Auto) 7.95 K/uL Lymphocytes # (Auto) 2.21 K/uL Monocytes # (Auto) 0.21 K/uL Eosinophils # (Auto) 0.00 K/uL Basophils # (Auto) 0.00 K/uL HbA1c Test 08/26/16 18:08 Hemoglobin A1c 12.3 % (4.5-5.6) H Recent Pertinent Medications Outpatient Anti-diabetic Regimen: * N/A The patient is currently receiving: * Insulin drip * Severe stress protocol * Goal range: 150-250 mg/dL Risk Factors for Insulin Resistance: * IVF: D5NS+20KCL @200 cc/hr * Diet: T2DM Assessment & Plan ASSESSMENT: * 55 yo M admitted with DKA, new onset diabetes, initiated on insulin drip per severe stress protocol * On admission, BSGs found to be near 500 mg/dL * 10 units of Regular insulin IV X 1 given in the ED * Insulin drip then initiated and patient transferred to ICU * A1c of 12.3% indicative of new onset diabetes/poor glycemic control * Per PRP @1200 today, patient meets criteria to be transitioned off insulin drip Criteria: 1. Serum glucose below 200 mg/dL (DKA) or 250 to 300 mg/dL (HHS) 2. Serum anion gap <12 meq/L 3. Serum bicarbonate =15 meq/L 4. Venous pH >7.30 * My plan will be to change goal range on insulin drip to ICU goal range for easier transition and give Lantus now * I will base basal/bolus regimen on a stress of 2, if sustained hyperglycemia, then a stress of 3 will be used * Drip rates have been steady at 3.2 units/hr but this is taking into consideration dextrose in fluids and I do not feel comfortable starting > stress of 3 in newly diagnosed diabetic * Spoke with provider, patient is eating and gap closed. Remove dextrose from fluids to further aid in glycemic control * ADA & AACE recommend a goal blood sugar range 140-180 mg/dl for the majority of critically ill & non-critically ill patients. However, more stringent targets may be selected in individual cases. PLAN FOR INPATIENT GLYCEMIC CONTROL: * Continue Insulin drip per Severe Stress Protocol * Change to Goal Range 140 - 180 mg/dl * D/C insulin drip 6 hours after Lantus dose given (~1900) or when drip held per calculator- whichever happens sooner * Basal insulin with LANTUS 20 units SQ X 1 now (~1300) * Continue Lantus BID starting tonight * BSG <140 mg/dL: 8 units (stress of 1) * BSG 141-180 mg/dL: 15 units (stress of 2) * BSG >181 mg/dL: 20 units (stress of 3) * Correctional Insulin with NOVOLOG per scale ACHS + 00 and 04 checks * Goal Range: Low 120 mg/dL - High 160 mg/dL * Correction Factor: 25 mg/dL/unit * Nutritional / Prandial insulin per carb ratio of 1 unit per 9 grams CHO consumed * A1c will be added to D/C instructions * Please note that the plan above was derived based on current level of insulin resistance and hospital stress. These recommendations are appropriate for inpatient admission only. Plan of care upon discharge will need to be reassessed to avoid potential outpatient hypo/hyperglycemia. Thank you.
[2016-08-27] MEDS: INSULIN REGULAR 250 UNITS in SODIUM CHLORIDE 0.9% 250ML 250 ML IV SCH (16:09)
--- NOTE | 2016-08-27 17:30 | ECHOCARDIOGRAM REPORT ---
*NOTICE TO RECEIVING CONSTITUTION PARTY AGENCY This information is strictly Confidential and protected under [place] law. [place] law prohibits you from making any further disclosure of this information unless further disclosure is expressly permitted by the written consent of the person to whom it pertains or is authorized by law. A general authorization for the release of medical or other information is not sufficient for this purpose. Hospital accepts no responsibility if the information is made available to any other person, INCLUDING THE PATIENT. Interpretation Summary * Name: JAZ MORENO Study Date: 08/27/2016 06:34 AM BP: 106/56 mmHg * Patient Location: .MSICU\S\E105\S\1 HR: 78 * : 1960 (M/d/yyyy) Gender: Male Height: 71 in * Age: 55 yrs Ethnicity: CA Weight: 201 lb * Ordering Physician: Elder Reed * Referring Physician: Self, Referred * Performed By: Yary Griffin RDCS * * Reason For Study: AMI * BSA: 2.1 m2 * History: AMI * Normal overall left ventricular systolic function. * Basal - mid inferior, posterior, and septal hypokinesis. * Mild right ventricular systolic dysfunction. * Mild left ventricular hypertrophy. * Mild left atrial dilatation. * No significant valvular abnormalities. Procedure Details * Left Ventricle The left ventricle is normal in size. There is mild concentric left ventricular hypertrophy. Ejection Fraction = 60-65%. Basal to mid posterior, inferior, and septal hypokinesis.- * Right Ventricle Borderline right ventricular enlargement. The right ventricular systolic function is mildly reduced. * Atria The left atrium is mildly dilated. Right atrial size is normal. No ASD detected; PFO is not assessed. * Mitral Valve The mitral valve is normal. There is no mitral valve stenosis. There is no mitral regurgitation noted. * Tricuspid Valve The tricuspid valve is normal. There is no tricuspid stenosis. No tricuspid regurgitation. * Aortic Valve The aortic valve is trileaflet. The aortic valve opens well. Aortic stenosis is absent. No aortic regurgitation is present. * Pulmonic Valve The pulmonic valve is not well visualized. There is no significant pulmonary regurgitation. * Great Vessels Borderline aortic root dilatation. * Pericardium/Pleural There is no pericardial effusion. * Right Ventricle RV free wall hypokinetic. * Great Vessels The inferior vena cava is mildly dilated. * * MMode 2D Measurements and Calculations * IVSd 1.3 cm * IVSs 1.6 cm * * LVIDd 4.3 cm * LVIDs 2.9 cm * LVPWd 1.4 cm * LVPWs 1.7 cm * * IVS/LVPW 0.88 * FS 32.4 % * EDV(Teich) 82.9 ml * ESV(Teich) 32.4 ml * EF(Teich) 61.0 % * * EDV(cubed) 79.3 ml * ESV(cubed) 24.5 ml * EF(cubed) 69.1 % * % IVS thick 29.8 % * % LVPW thick 19.8 % * * LV mass(C)d 220.0 grams * LV mass(C)dI 104.2 grams/m\S\2 * LV mass(C)s 185.4 grams * LV mass(C)sI 87.8 grams/m\S\2 * * SV(Teich) 50.5 ml * SI(Teich) 23.9 ml/m\S\2 * SV(cubed) 54.8 ml * SI(cubed) 25.9 ml/m\S\2 * * Ao root diam 4.0 cm * Ao root area 12.8 cm\S\2 * LA dimension 4.1 cm * * LA/Ao 1.0 * * LVAd ap4 26.6 cm\S\2 * LVLd ap4 8.3 cm * EDV(MOD-sp4) 72.7 ml * EDV(sp4-el) 72.6 ml * LVAs ap4 14.8 cm\S\2 * LVLs ap4 6.7 cm * ESV(MOD-sp4) 28.8 ml * ESV(sp4-el) 27.8 ml * EF(MOD-sp4) 60.3 % * EF(sp4-el) 61.7 % * * LVAd ap2 24.6 cm\S\2 * LVLd ap2 7.8 cm * EDV(MOD-sp2) 66.9 ml * EDV(sp2-el) 66.1 ml * LVAs ap2 14.4 cm\S\2 * LVLs ap2 6.4 cm * ESV(MOD-sp2) 31.3 ml * ESV(sp2-el) 27.6 ml * EF(MOD-sp2) 53.2 % * EF(sp2-el) 58.2 % * * LVLd %diff -6.86 % * EDV(MOD-bp) 71.9 ml * LVLs %diff -4.23 % * ESV(MOD-bp) 30.0 ml * EF(MOD-bp) 58.3 % * * SV(MOD-sp4) 43.9 ml * SI(MOD-sp4) 20.8 ml/m\S\2 * * SV(MOD-sp2) 35.6 ml * SI(MOD-sp2) 16.9 ml/m\S\2 * * SV(MOD-bp) 42.0 ml * SI(MOD-bp) 19.9 ml/m\S\2 * * SV(sp4-el) 44.7 ml * SI(sp4-el) 21.2 ml/m\S\2 * * SV(sp2-el) 38.4 ml * SI(sp2-el) 18.2 ml/m\S\2 * * * Doppler Measurements and Calculations * MV E max alesha 75.1 cm/sec * MV A max alesha 57.0 cm/sec * * MV E/A 1.3 * * MV dec time 0.25 sec * * Ao V2 max 122.4 cm/sec * Ao max PG 6.0 mmHg * Ao max PG (full) -0.09 mmHg * * LV V1 max PG 6.1 mmHg * * LV V1 max 123.3 cm/sec * * * *
--- NOTE | 2016-08-27 18:02 | Family Medicine Progress Note ---
Progress Note Date of Service Aug 27, 2016. 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 He underwent a cardiac cath and had two stents placed in RCA. He was also found to be in DKA with a ph of 7.11, AG of 27 and blood sugars in 400s Denies any CP/SOB/palpitations currently. No more episodes of NH/V/D /abdominal pin but complains of being tired Constitutional: No chills, No fever Eyes: No worsening of vision ENT: No hearing loss Respiratory: No cough, No shortness of breath, No sputum Cardiovascular: No chest pain, No edema, No palpitations Abdomen: No diarrhea, No nausea, No pain, No vomiting Musculoskeletal: No joint pain Neurologic: No memory loss Psychiatric: No depression symptoms Medications Current Inpatient Medications Medications (Trade) Dose Ordered Sig/Raymond Route Start Time Stop Time Status Last Admin Dose Admin Aspirin (Ecotrin Tab) 81 mg QAM PO 08/27/16 09:00 09/26/16 08:59 08/27/16 08:38 81 MG Clopidogrel Bisulfate (plAVix TAB) 75 mg QAM PO 08/27/16 09:00 09/26/16 08:59 08/27/16 08:38 75 MG Atorvastatin Calcium (Lipitor Tab) 80 mg QAM PO 08/27/16 09:00 09/26/16 08:59 08/27/16 08:38 80 MG Metoprolol Tartrate (Lopressor Tab) 25 mg Q12 PO 08/27/16 09:00 09/26/16 08:59 08/27/16 08:38 25 MG Lisinopril (Zestril Tab) 5 mg QAM PO 08/27/16 09:00 09/26/16 08:59 08/27/16 10:20 5 MG Acetaminophen (Tylenol Tab) 650 mg Q4H PRN PO 08/26/16 22:00 09/25/16 21:59 Ondansetron HCl 4 mg 4 mg Q6H PRN IV 08/26/16 22:45 09/25/16 22:44 08/27/16 06:08 4 MG Insulin Human Regular/Sodium Chloride (novoLIN-R/Nss 250ml) 252.5 ml @ 0 mls/hr DAILY@1130 IV 08/26/16 23:45 08/27/16 19:00 08/26/16 23:45 3.2 MLS/HR Glucose (Glucose 40% Gel) UD PRN PO 08/26/16 23:30 09/25/16 23:29 Glucose (Glucose Chew Tab) 1 tabs UD PRN PO 08/26/16 23:30 09/25/16 23:29 Dextrose (Dextrose 50% 50ML Syringe) 50 ml UD PRN IV 08/26/16 23:30 09/25/16 23:29 Glucagon (Glucagon Inj) 1 mg UD PRN SQ 08/26/16 23:30 09/25/16 23:29 Miscellaneous Information (Consult Glycemic Management Pharmacy) 1 ea UD PRN N/A 08/26/16 23:45 09/25/16 23:44 Insulin Glargine (Lantus Solostar Pen) SEE PROTOCOL TEXT BID SC 08/27/16 21:00 09/26/16 20:59 Insulin Aspart SLIDING SCALE ACHS SC 08/27/16 16:00 09/26/16 15:59 Potassium Chloride/Sodium Chloride (Nss + 20meq KCl 1000ml) 1,000 ml @ 100 mls/hr Q10H IV 08/27/16 15:00 09/26/16 14:59 08/27/16 15:32 100 MLS/HR Insulin Aspart SLIDING SCALE 0000,0400 SC 08/28/16 00:00 09/27/16 00:00 Potassium Phosphate/Sodium Chloride (Potassium Phosphate Inj/Nss 500ml) 507 ml @ 88 mls/hr TODAY@1530 ONCE IV 08/27/16 15:30 08/27/16 21:15 08/27/16 15:33 88 MLS/HR Objective Vital Signs Date Time Temp Pulse Resp B/P Pulse Ox O2 Delivery O2 Flow Rate FiO2 08/27/16 17:10 36.6 115 17 108/67 95 Room Air 08/27/16 16:57 36.6 115 17 108/67 95 Room Air 08/27/16 16:40 36.6 115 17 95 08/27/16 15:56 Room Air 08/27/16 15:55 36.8 120 20 105/58 98 Room Air 08/27/16 13:00 112 20 93/61 97 Room Air 08/27/16 12:00 36.8 107 18 89/58 97 Room Air 08/27/16 12:00 Room Air 08/27/16 10:00 116 106/63 95 Room Air 08/27/16 09:00 117 18 115/64 97 Room Air 08/27/16 08:00 36.6 124 16 103/61 98 Room Air 08/27/16 08:00 Room Air 08/27/16 08:00 Room Air 08/27/16 07:01 78 105/58 98 08/27/16 06:00 78 106/56 97 08/27/16 05:01 78 110/59 98 08/27/16 04:00 81 107/61 97 08/27/16 04:00 81 111/60 97 08/27/16 04:00 97 Room Air 08/27/16 03:01 36.4 82 107/59 97 08/27/16 03:00 83 08/27/16 02:01 85 131/64 99 08/27/16 02:01 36.3 85 131/64 99 08/27/16 02:00 84 99 08/27/16 01:01 83 134/62 99 08/27/16 00:00 82 119/65 98 08/27/16 00:00 98 Room Air 08/26/16 23:16 207 22 146/74 89 08/26/16 23:15 80 99 08/26/16 23:01 74 20 129/73 08/26/16 23:00 77 98 08/26/16 22:46 83 24 139/72 100 08/26/16 22:45 81 98 08/26/16 22:31 88 22 125/77 98 08/26/16 22:30 81 99 08/26/16 22:15 84 20 132/111 100 Room Air 08/26/16 22:05 35.9 82 26 132/111 98 Room Air 08/26/16 22:03 36.0 83 24 124/69 100 Room Air 08/26/16 21:47 82 16 120/67 95 Room Air 08/26/16 21:32 85 16 105/55 95 Room Air 08/26/16 18:50 91 30 120/90 97 Nasal Cannula 3.0 08/26/16 18:43 117 08/26/16 18:36 108 30 134/75 99 Nasal Cannula 2.0 08/26/16 18:30 36.0 08/26/16 18:17 90 30 128/83 97 Nasal Cannula 2.0 08/26/16 18:15 83 08/26/16 18:15 142 128/83 08/26/16 18:10 Nasal Cannula 2.0 08/26/16 17:59 146/92 08/26/16 17:52 155 30 128/72 90 Room Air Physical Exam General Appearance: WD/WN, no apparent distress Eyes: normal inspection ENT: normal ENT inspection, hearing grossly normal Neck: supple Respiratory/Chest: chest non-tender, lungs clear, normal breath sounds, no respiratory distress, no accessory muscle use Cardiovascular: regular rate, rhythm, no edema Abdomen: normal bowel sounds, non tender, soft Extremities: normal range of motion, non-tender, no pedal edema Neurologic/Psychiatric: alert, normal mood/affect, oriented x 3 Skin: normal color Laboratory Results 08/27/16 03:50 Red Blood Count 4.87, Mean Corpuscular Volume 80.1, Mean Corpuscular Hemoglobin 28.7, Mean Corpuscular Hemoglobin Concent 35.9, Mean Platelet Volume 9.3, Neutrophils (%) (Auto) 76.4, Lymphocytes (%) (Auto) 21.3, Monocytes (%) (Auto) 2.0, Eosinophils (%) (Auto) 0.0, Basophils (%) (Auto) 0.0, Neutrophils # (Auto) 7.95, Lymphocytes # (Auto) 2.21, Monocytes # (Auto) 0.21, Eosinophils # (Auto) 0.00, Basophils # (Auto) 0.00 08/27/16 12:07 Test 08/26/16 18:08 08/26/16 18:18 08/26/16 18:34 08/26/16 19:03 Prothrombin Time 10.8 SECONDS (9.0-12.0) Prothromb Time International Ratio 1.0 (0.9-1.1) Activated Partial Thromboplast Time 33.4 SECONDS (21.0-31.0) Partial Thromboplastin Ratio 1.3 Estimated Average Glucose 306 mg/dl Hemoglobin A1c 12.3 % (4.5-5.6) Total Bilirubin 1.0 mg/dl (0.2-1) Direct Bilirubin 0.2 mg/dl (0-0.2) Aspartate Amino Transf (AST/SGOT) 15 U/L (15-37) Alanine Aminotransferase (ALT/SGPT) 32 U/L (12-78) Alkaline Phosphatase 123 U/L (45-117) Total Creatine Kinase 113 U/L (39-308) Creatine Kinase MB 5.4 ng/ml (0.5-3.6) Creatine Kinase MB Ratio 4.8 (0-3.0) Total Protein 8.6 gm/dl (6.4-8.2) Albumin 3.5 gm/dl (3.4-5.0) Bedside Troponin I 2.500 ng/ml (0-0.045) Arterial Blood pH 7.11 (7.35-7.45) Arterial Blood Partial Pressure CO2 12 mmHg (35-46) Arterial Blood Partial Pressure O2 173 mm/Hg (80-95) Arterial Blood HCO3 4 mmol/L (19-24) Arterial Blood Oxygen Saturation 99.1 % (90-95) Arterial Blood Base Excess -23.2 mEq/L (-9-1.8) Arterial Blood Gas Delivery 3 L Jaime Test (POS) Bedside Hemoglobin 15.3 g/dl (14.0-18.0) Bedside Hematocrit 45 % (42-52) Bedside Sodium 133 mEq/L (135-144) Bedside Potassium 3.6 mEq/L (3.3-5.0) Bedside Chloride 106 mEq/L (101-112) Bedside Total CO2 6 mEq/l (24-31) Bedside Blood Urea Nitrogen 38 mg/dl (7-18) Bedside Creatinine 0.6 mg/dl (0.6-1.3) Bedside Glucose (other) 371 mg/dl (70-99) Bedside Ionized Calcium (Nat) 1.06 mmol/l (1.12-1.32) Test 08/26/16 20:20 08/26/16 23:08 08/27/16 03:50 08/27/16 12:07 Kaolin Activated Coagulation Time 219 SECONDS (94-140) Blood Gas Sample Site L Radial Bedside Blood Gas pH (LAB) 7.23 (7.35-7.45) Bedside Blood Gas pCO2 (LAB) 13 mmHg (35-46) Bedside Blood Gas pO2 (LAB) 107 mmHg (80-95) Bedside Blood Gas HCO3 (LAB) 6 meq/L (19-24) Bedside Blood Gas Total CO2 6 mEq/l (24-31) Bedside Blood Gas Base Excess (LAB) -22.0 meq/L (-9-1.8) Bedside Blood Gas O2 Saturation 98.0 % (90-95) Jaime Test Pass Oxygen Delivery Device Room Air White Blood Count 10.40 K/uL (4.8-10.8) Red Blood Count 4.87 M/uL (4.7-6.1) Hemoglobin 14.0 g/dL (14.0-18.0) Hematocrit 39.0 % (42-52) Mean Corpuscular Volume 80.1 fL (80-100) Mean Corpuscular Hemoglobin 28.7 pg (25-34) Mean Corpuscular Hemoglobin Concent 35.9 g/dl (32-36) Platelet Count 283 K/uL (130-400) Mean Platelet Volume 9.3 fL (7.4-10.4) Neutrophils (%) (Auto) 76.4 % Lymphocytes (%) (Auto) 21.3 % Monocytes (%) (Auto) 2.0 % Eosinophils (%) (Auto) 0.0 % Basophils (%) (Auto) 0.0 % Neutrophils # (Auto) 7.95 K/uL (1.4-6.5) Lymphocytes # (Auto) 2.21 K/uL (1.2-3.4) Monocytes # (Auto) 0.21 K/uL (0.11-0.59) Eosinophils # (Auto) 0.00 K/uL (0-0.5) Basophils # (Auto) 0.00 K/uL (0-0.2) RDW Standard Deviation 38.1 fL (36.4-46.3) RDW Coefficient of Variation 13.2 % (11.5-14.5) Immature Granulocyte % (Auto) 0.3 % Immature Granulocyte # (Auto) 0.03 K/uL (0.00-0.02) LDL Cholesterol Direct 90 mg/dl Beta-Hydroxybutyric Acid 50.06 mg/dL (0.2-2.81) Venous Blood pH 7.41 (7.36-7.41) Anion Gap 11.0 mmol/L (3-11) Est Creatinine Clear Calc Drug Dose 93.6 ml/min Estimated GFR () 103.4 Estimated GFR (Non- 89.3 BUN/Creatinine Ratio 28.0 (10-20) Calcium Level 6.9 mg/dl (8.5-10.1) Phosphorus Level 1.7 mg/dl (2.5-4.9) Magnesium Level 2.2 mg/dl (1.8-2.4) Test 08/27/16 14:29 08/27/16 16:39 Troponin I 6.230 ng/ml (0-0.045) Bedside Glucose 175 mg/dl (70-99) Date/Time Source Procedure Growth Status 08/27/16 15:40 Nasal MRSA DNA Surveillance Screen - Final Specimen Negative for MRSA by DNA Probe Complete Assessment and Plan 55 year old male who presented with inferior STEMI, s/p 2 drug eluting stent placement, who also presented with DKA and atrial fibrillation with RVR. Acute inferior STEMI s/p 2 drug eluting stents in RCA - Integrellin for 12 hours , 600 mg plavix loading dose - Continue dual antiplatelet therapy - Metoprolol, Lisinopril and statin added DKA with newly diagnosed DM - Hba1c at 12.9 - managed per protocol - Currently switched IVF to NSS +20 KCL at 100 mls/hr - Insulin Glargine BID , goal range 140-180, 8 units if <140, 15units 140-180, 21 units if >181 - NOVOLOG per scale ACHS + 00 and 04 checks * Goal Range: Low 120 mg/dL - High 160 mg/dL * Correction Factor: 25 mg/dL/unit * Nutritional / Prandial insulin per carb ratio of 1 unit per 9 grams CHO consumed Hypophosphatemia: - Phos at 1.7 - 21 mEQ Kphos added Atrial fibrillation with RVR - Continue metoprolol 25 mg BID Full code DVT prophylaxis: SCDs Transferred to tele Reviewed: Pt Seen/Exam by Me History Pt with ongoing nausea that is improving. No recent emesis. He is tired today. No chest pain or SOB. Agree with HPI/ROS as noted. Per nursing, pt had been in NSR, but has flipped into afib at times. Cardiology has been made aware. General Appearance: WD/WN, no apparent distress Respiratory: normal breath sounds, no respiratory distress Cardiovascular: normal peripheral pulses, tachycardia Gastrointestinal: non tender, soft Extremities: non-tender, no pedal edema Neurologic/Psychiatric: alert, oriented x 3 Skin Characteristics: normal color, warm/dry Assessment/Plan Resident Physician Supervision Note: I discussed the case with the resident and agree with the findings and plan as documented in the note. Any exceptions or clarifications are listed here: Documented By: Carmen De Oliveira Agree with plan as outlined above New dx DM, afib with RVR BS improving, A1c 12.3, will need insulin on d/c STEMI being managed by cardiology
[2016-08-27] MEDS: INSULIN GLARGINE SOLOSTAR 100 UNITS/ML 3 ML PEN SC SCH (21:19)
[2016-08-28] VITALS (8 sets, daily range): BP systolic 95–139; BP diastolic 54–72; PULSE 68–118; TEMP 36.5–36.9; O2SAT 94–97; BMI 26.3
[2016-08-28] MEDS: INSULIN ASPART 100 UNITS/ML 3 ML PEN SC SCH ×6 (00:14→21:38)
[2016-08-28] MEDS: NSS + 20MEQ KCL 1000ML 1,000 ML IV SCH ×3 (00:47→22:19)
[2016-08-28] MEDS: CLOPIDOGREL BISULFATE 75 MG TAB PO SCH (07:34)
[2016-08-28] MEDS: ASPIRIN 81 MG ECTAB PO SCH (07:34)
[2016-08-28] MEDS: ATORVASTATIN 40 MG TAB PO SCH (07:34)
[2016-08-28] MEDS: METOPROLOL TARTRATE 25 MG TAB PO SCH (07:34)
[2016-08-28] MEDS: LISINOPRIL 5 MG TAB PO SCH (07:35)
[2016-08-28 07:43] LABS: COMPLETE YES; HEMATOCRIT 33.4 % (42-52); IG% 0.1 %; LYMPH ABS # 1.15 K/uL (1.2-3.4); MEAN CELL VOLUME 77.3 fL (80-100); MEAN CORPUSCULAR HEMOGLOBIN 27.8 pg (25-34); MEAN CORPUSCULAR HGB CONC 35.9 g/dl (32-36); MEAN PLATELET VOLUME 8.6 fL (7.4-10.4); MONO % 6.3 %; NEUT % 77.6 %; PLATELET COUNT 177 K/uL (130-400); RED BLOOD COUNT 4.32 M/uL (4.7-6.1); WHITE BLOOD COUNT 7.17 K/uL (4.8-10.8)
--- NOTE | 2016-08-28 08:12 | DIAGNOSTIC IMAGING REPORT ---
NECK ULTRASOUND HISTORY: left parotid swelling COMPARISON: None. FINDINGS: Real-time sonographic imaging of the left parotid gland was performed. The left parotid gland appears hyperechoic and edematous. There are few prominent lymph nodes in within or adjacent to the parotid gland with the largest measuring 1.1 x 0.9 cm. IMPRESSION: Echogenic and edematous left parotid gland which favors a parotitis. There are few prominent lymph nodes within or adjacent to the parotid gland which are likely reactive. Electronically signed by: Compa Ramirez M.D. 08/28/2016 8:10 AM Dictated Date/Time: 08/28/2016 8:09 AM
[2016-08-28 08:21] LABS: BUN/CREATININE RATIO 28.1 (10-20); CALCIUM 7.6 mg/dl (8.5-10.1); CREATININE 0.58 mg/dl (0.60-1.40); MAGNESIUM 2.3 mg/dl (1.8-2.4); PHOSPHORUS 1.6 mg/dl (2.5-4.9); POTASSIUM 3.6 mmol/L (3.5-5.1)
[2016-08-28] MEDS: INSULIN GLARGINE SOLOSTAR 100 UNITS/ML 3 ML PEN SC SCH (08:30)
--- NOTE | 2016-08-28 09:49 | Cardiology Follow-Up ---
Subjective Subjective Date of Service: Aug 28, 2016. Pt evaluation today including: conversation w/ patient, physical exam, chart review, lab review, review of studies, review of inpatient medication list Additional Details: States feeling much better than yesterday. No chest pain, shortness of breath. Still decreased appetite Left facial/jaw pain present. Telemetry reviewed -- atrial fibrillation with RVR with HRs to 110s-120s Problem List Medical Problems: (1) Atrial fibrillation with RVR Status: Acute (2) DKA (diabetic ketoacidoses) Status: Acute (3) ST elevation NM (STEMI) Status: Acute (4) ST elevation myocardial infarction (STEMI) of inferior wall Status: Acute Review of Systems Constitutional: + chills, + sweats Eyes: No worsening of vision ENT: + problem reported (swelling around mandible), + trouble swallowing, No hearing loss Respiratory: No cough, No shortness of breath, No sputum Cardiac: No chest pain, No edema, No palpitations Abdomen: No diarrhea, No nausea, No pain, No vomiting Musculoskeletal: No joint pain Neurologic: No memory loss Psychiatric: No depression symptoms Heme: No abnormal bleeding/bruising Skin: No rash Objective Vital Signs Last Vital Signs Documentation Date Time Temp Pulse Resp B/P Pulse Ox O2 Delivery O2 Flow Rate FiO2 08/28/16 07:40 Room Air 08/28/16 07:28 36.8 118 18 95/54 96 08/26/16 18:50 3.0 Physical Exam: General Appearance: no apparent distress ENT: + pertinent finding (hard, tender, swelling over left lateral aspect of face. Poor dentition abscess) Neck: supple Respiratory/Chest: lungs clear, normal breath sounds, no respiratory distress Cardiovascular: no edema, + tachycardia Abdomen: normal bowel sounds, non tender, soft Extremities: normal range of motion, non-tender, no pedal edema Neurologic/Psychiatric: alert, normal mood/affect, oriented x 3 Skin: normal color, warm/dry Assessment and Plan 1. Inferior STEMI s/p PPCI with MARILYN x2 to proximal to mid RCA 2. DKA/newly diagnosed diabetes 3. AF + RVR 4. ION 5. ? Parotitis Remains chest pain free, hemodynamically stable. LV function preserved on echo with only mild inferior/RV hypokinesis. Recurrent AF + RVR starting yesterday afternoon -- asymptomatic. -- Continue ASA/plavix -- Increase metoprolol for improved rate control --> 50 mg BID. Can hold TATIANNA inhibitor. -- high dose statin -- Risk factors for cardioembolism with AF --> recommend anticoagulation with Eliquis 5 mg BID. Will need triple therapy for at least 1 month. -- DM, possible parotitis management per primary team. Will continue to follow. Medications: Current Inpatient Medications Medications (Trade) Dose Ordered Sig/Raymond Route Start Time Stop Time Status Last Admin Dose Admin Aspirin (Ecotrin Tab) 81 mg QAM PO 08/27/16 09:00 09/26/16 08:59 08/28/16 07:34 81 MG Clopidogrel Bisulfate (plAVix TAB) 75 mg QAM PO 08/27/16 09:00 09/26/16 08:59 08/28/16 07:34 75 MG Atorvastatin Calcium (Lipitor Tab) 80 mg QAM PO 08/27/16 09:00 09/26/16 08:59 08/28/16 07:34 80 MG Metoprolol Tartrate (Lopressor Tab) 25 mg Q12 PO 08/27/16 09:00 09/26/16 08:59 08/28/16 07:34 25 MG Lisinopril (Zestril Tab) 5 mg QAM PO 08/27/16 09:00 09/26/16 08:59 08/28/16 07:35 5 MG Acetaminophen (Tylenol Tab) 650 mg Q4H PRN PO 08/26/16 22:00 09/25/16 21:59 Ondansetron HCl (Zofran Inj) 4 mg Q6H PRN IV 08/26/16 22:45 09/25/16 22:44 08/27/16 06:08 4 MG Glucose (Glucose 40% Gel) UD PRN PO 08/26/16 23:30 09/25/16 23:29 Glucose (Glucose Chew Tab) 1 tabs UD PRN PO 08/26/16 23:30 09/25/16 23:29 Dextrose (Dextrose 50% 50ML Syringe) 50 ml UD PRN IV 08/26/16 23:30 09/25/16 23:29 Glucagon (Glucagon Inj) 1 mg UD PRN SQ 08/26/16 23:30 09/25/16 23:29 Miscellaneous Information (Consult Glycemic Management Pharmacy) 1 ea UD PRN N/A 08/26/16 23:45 09/25/16 23:44 Insulin Glargine (Lantus Solostar Pen) SEE PROTOCOL TEXT BID MI 08/27/16 21:00 09/26/16 20:59 08/27/16 21:19 15 UNIT Insulin Aspart SLIDING SCALE ACHS MI 08/27/16 16:00 09/26/16 15:59 Potassium Chloride/Sodium Chloride (Nss + 20meq KCl 1000ml) 1,000 ml @ 100 mls/hr Q10H IV 08/27/16 15:00 09/26/16 14:59 08/28/16 00:47 100 MLS/HR Insulin Aspart (novoLOG ASPART) SLIDING SCALE 0000,0400 MI 08/28/16 00:00 09/27/16 00:00 08/28/16 04:14 2 UNITS Lab Results: 08/28/16 07:36 Red Blood Count 4.32, Mean Corpuscular Volume 77.3, Mean Corpuscular Hemoglobin 27.8, Mean Corpuscular Hemoglobin Concent 35.9, Mean Platelet Volume 8.6, Neutrophils (%) (Auto) 77.6, Lymphocytes (%) (Auto) 16.0, Monocytes (%) (Auto) 6.3, Eosinophils (%) (Auto) 0.0, Basophils (%) (Auto) 0.0, Neutrophils # (Auto) 5.56, Lymphocytes # (Auto) 1.15, Monocytes # (Auto) 0.45, Eosinophils # (Auto) 0.00, Basophils # (Auto) 0.00 08/28/16 07:36 Test 08/27/16 12:07 08/27/16 14:29 08/28/16 06:30 08/28/16 07:36 Venous Blood pH 7.41 (7.36-7.41) Troponin I 6.230 ng/ml (0-0.045) Bedside Glucose 171 mg/dl (70-99) White Blood Count 7.17 K/uL (4.8-10.8) Red Blood Count 4.32 M/uL (4.7-6.1) Hemoglobin 12.0 g/dL (14.0-18.0) Hematocrit 33.4 % (42-52) Mean Corpuscular Volume 77.3 fL (80-100) Mean Corpuscular Hemoglobin 27.8 pg (25-34) Mean Corpuscular Hemoglobin Concent 35.9 g/dl (32-36) Platelet Count 177 K/uL (130-400) Mean Platelet Volume 8.6 fL (7.4-10.4) Neutrophils (%) (Auto) 77.6 % Lymphocytes (%) (Auto) 16.0 % Monocytes (%) (Auto) 6.3 % Eosinophils (%) (Auto) 0.0 % Basophils (%) (Auto) 0.0 % Neutrophils # (Auto) 5.56 K/uL (1.4-6.5) Lymphocytes # (Auto) 1.15 K/uL (1.2-3.4) Monocytes # (Auto) 0.45 K/uL (0.11-0.59) Eosinophils # (Auto) 0.00 K/uL (0-0.5) Basophils # (Auto) 0.00 K/uL (0-0.2) RDW Standard Deviation 38.4 fL (36.4-46.3) RDW Coefficient of Variation 13.4 % (11.5-14.5) Immature Granulocyte % (Auto) 0.1 % Immature Granulocyte # (Auto) 0.01 K/uL (0.00-0.02) Anion Gap 12.0 mmol/L (3-11) Est Creatinine Clear Calc Drug Dose 155.0 ml/min Estimated GFR () 134.0 Estimated GFR (Non- 115.6 BUN/Creatinine Ratio 28.1 (10-20) Calcium Level 7.6 mg/dl (8.5-10.1) Phosphorus Level 1.6 mg/dl (2.5-4.9) Magnesium Level 2.3 mg/dl (1.8-2.4) Date/Time Source Procedure Growth Status 08/27/16 15:40 Nasal MRSA DNA Surveillance Screen - Final Specimen Negative for MRSA by DNA Probe Complete
[2016-08-28] MEDS ORDERED: POTASSIUM PHOS 3 MMOL/1 ML INFUSION IV STA (10:26)
[2016-08-28] MEDS ORDERED: METOPROLOL TARTRATE 25 MG TAB PO ONE (10:30)
[2016-08-28] MEDS ORDERED: POTASSIUM PHOSPHATE INJ 21 MMOL in SODIUM CHLORIDE 0.9% 500ML 500 ML IV SCH (11:00)
--- NOTE | 2016-08-28 11:09 | Pharmacy Progress Note ---
Glycemic Control: Progress Nt Date of Service Aug 28, 2016. Scope Glycemic Pharmacist consulted by Dr Crandall on 08/27/16 for glycemic control and to write orders per [facility] inpatient glycemic control protocol. Objective Accuchecks BSG (last 24hrs): Test 08/27/16 11:51 08/27/16 12:07 08/27/16 13:39 08/27/16 15:41 Bedside Glucose 230 mg/dl (70-99) 215 mg/dl (70-99) 190 mg/dl (70-99) Random Glucose 205 mg/dl (70-99) Test 08/27/16 16:39 08/27/16 20:43 08/28/16 00:07 08/28/16 03:53 Bedside Glucose 175 mg/dl (70-99) 154 mg/dl (70-99) 191 mg/dl (70-99) 192 mg/dl (70-99) Test 08/28/16 06:30 08/28/16 07:36 Bedside Glucose 171 mg/dl (70-99) Random Glucose 180 mg/dl (70-99) Laboratory Data (last 24hrs) Test 08/27/16 12:07 08/28/16 07:36 Anion Gap 11.0 mmol/L 12.0 mmol/L BUN/Creatinine Ratio 28.0 28.1 Blood Urea Nitrogen 27 mg/dl 16 mg/dl Creatinine 0.96 mg/dl 0.58 mg/dl Potassium Level 3.6 mmol/L 3.6 mmol/L Sodium Level 141 mmol/L 141 mmol/L White Blood Count 7.17 K/uL Red Blood Count 4.32 M/uL Hemoglobin 12.0 g/dL Hematocrit 33.4 % Mean Corpuscular Volume 77.3 fL Mean Corpuscular Hemoglobin 27.8 pg Mean Corpuscular Hemoglobin Concent 35.9 g/dl Platelet Count 177 K/uL Mean Platelet Volume 8.6 fL Neutrophils (%) (Auto) 77.6 % Lymphocytes (%) (Auto) 16.0 % Monocytes (%) (Auto) 6.3 % Eosinophils (%) (Auto) 0.0 % Basophils (%) (Auto) 0.0 % Neutrophils # (Auto) 5.56 K/uL Lymphocytes # (Auto) 1.15 K/uL Monocytes # (Auto) 0.45 K/uL Eosinophils # (Auto) 0.00 K/uL Basophils # (Auto) 0.00 K/uL HbA1c: Test 08/26/16 18:08 Hemoglobin A1c 12.3 % (4.5-5.6) H Recent Pertinent Medications Outpatient Anti-diabetic Regimen: * no prior hx or dx of DM * A1c = 12.3 % 08/27/16 The patient is currently receiving: * Basal insulin: Lantus 20 units x 1 given in AM yesterday; 15 units given in PM last night * Correctional Insulin: Novolog Correction per scale ACHS and 0000 + 0400 Goal Range: Low 120 mg/dL - High 160 mg/dL Correction Factor: 25 mg/dL/unit * Prandial insulin: Per carb ratio of 1 unit per 9 grams CHO consumed * Oral Agents: None currently Risk Factors for Insulin Resistance: * Infection: starting Unasyn today * Recent Surgery: POD # 2 s/p cardiac cath w/ stenting * Diet: ordered T2DM / AHA diet. Assessment & Plan ASSESSMENT: 08/27/16 (per prior note) * 55 yo M admitted with DKA, new onset diabetes, initiated on insulin drip per severe stress protocol * On admission, BSGs found to be near 500 mg/dL * 10 units of Regular insulin IV X 1 given in the ED * Insulin drip then initiated and patient transferred to ICU * A1c of 12.3% indicative of new onset diabetes/poor glycemic control * Per PRP @1200 today, patient meets criteria to be transitioned off insulin drip Criteria: 1. Serum glucose below 200 mg/dL (DKA) or 250 to 300 mg/dL (HHS) 2. Serum anion gap <12 meq/L 3. Serum bicarbonate =15 meq/L 4. Venous pH >7.30 * My plan will be to change goal range on insulin drip to ICU goal range for easier transition and give Lantus now * I will base basal/bolus regimen on a stress of 2, if sustained hyperglycemia, then a stress of 3 will be used * Drip rates have been steady at 3.2 units/hr but this is taking into consideration dextrose in fluids and I do not feel comfortable starting > stress of 3 in newly diagnosed diabetic * Spoke with provider, patient is eating and gap closed. Remove dextrose from fluids to further aid in glycemic control * ADA & AACE recommend a goal blood sugar range 140-180 mg/dl for the majority of critically ill & non-critically ill patients. However, more stringent targets may be selected in individual cases. 08/28/16 * Patient was successfully transitioned off insulin drip yesterday evening * BSGs have ranged 154-192 since transitioned off the drip; acceptable for first 24 hrs off drip * AG mildly elevated this AM (AG = 12); Bicarb unchanged since yesterday ( Bicarb = 17) * No PO intake noted yet per carb counts in nursing documentation, thus current BSGs are fasting BSGs * He is currently ordered a Lantus sliding scale, with 3 possible doses. Would prefer to simplify Lantus order and base dose upon anticipated daily insulin requirement of ~0.6-0.7units/kg/day. PLAN FOR INPATIENT GLYCEMIC CONTROL: * Change Lantus 15 units SQ BID; give 1/2 dose (8 units) if BSG less than 120 * Continuing correction factor of 25 mg/dl/unit * Continuing carb ratio of 1 unit per 9 grams CHO consumed * Continuing goal range of Low 120 mg/dL - High 160 mg/dL * Continue 0000 + 0400 checks one more night to allow for tight glycemic control in the setting of recent STEMI RECOMMENDATIONS FOR DISCHARGE: * Insulin therapy would be most appropriate on discharge given patient's presentation and A1c; insulin doses still being determined /* Please note that the plan above was derived based on current level of insulin resistance and hospital stress. These recommendations are appropriate for inpatient admission only. Plan of care upon discharge will need to be reassessed to avoid potential outpatient hypo/hyperglycemia. Thank you.
[2016-08-28] MEDS: APIXABAN 2.5 MG TAB PO SCH ×2 (11:38→22:20)
[2016-08-28] MEDS: AMPICILLIN/SULBACTAM SOD INJ 1,500 MG in SODIUM CHLORIDE 0.9% 100ML 100 ML IV SCH ×3 (11:43→22:18)
--- NOTE | 2016-08-28 13:28 | Family Medicine Progress Note ---
Progress Note Date of Service Aug 28, 2016. Subjective Pt evaluation today including: conversation w/ patient, physical exam, chart review, lab review Pain: denies pain PO Intake: Good Voiding: no voiding problems 55 y/o M with no significant PMH presented with c/o nausea, vomiting and diarrhea which started 4 days [employer] . On arrival he was found to be in Afib with RVR and had EKG changes indicating a inferior AR. He underwent a cardiac cath and had two stents placed in RCA. He was also found to be in DKA and was started on a DKA protocol and currently transitioned to SQ insulin. Was notified by nursing yesterday that a family member had noticed left sided jaw but he denied any fevers/chills, URTI s/s, rashes , US of the skin/soft tissue was ordered which revealed parotitis with reactive lymph nodes. denies any pain in the area , difficulty chewing but hasn't had any dental follow up in several years and usually consumes sugary food Denies any CP/SOB/palpitations currently. No more episodes of N/V/D /abdominal pain but complains of being tired and fatigued and wants to go home Constitutional: No chills, No fever Eyes: No worsening of vision ENT: No hearing loss Respiratory: No cough, No shortness of breath, No sputum, No wheezing Cardiovascular: No PND, No chest pain, No palpitations Abdomen: No diarrhea, No nausea, No pain, No vomiting Musculoskeletal: No joint pain Male : No dysuria Medications Current Inpatient Medications Medications (Trade) Dose Ordered Sig/Raymond Route Start Time Stop Time Status Last Admin Dose Admin Aspirin (Ecotrin Tab) 81 mg QAM PO 08/27/16 09:00 09/26/16 08:59 08/28/16 07:34 81 MG Clopidogrel Bisulfate (plAVix TAB) 75 mg QAM PO 08/27/16 09:00 09/26/16 08:59 08/28/16 07:34 75 MG Atorvastatin Calcium (Lipitor Tab) 80 mg QAM PO 08/27/16 09:00 09/26/16 08:59 08/28/16 07:34 80 MG Lisinopril (Zestril Tab) 5 mg QAM PO 08/27/16 09:00 09/26/16 08:59 08/28/16 07:35 5 MG Acetaminophen (Tylenol Tab) 650 mg Q4H PRN PO 08/26/16 22:00 09/25/16 21:59 Ondansetron HCl (Zofran Inj) 4 mg Q6H PRN IV 08/26/16 22:45 09/25/16 22:44 08/27/16 06:08 4 MG Glucose (Glucose 40% Gel) UD PRN PO 08/26/16 23:30 09/25/16 23:29 Glucose (Glucose Chew Tab) 1 tabs UD PRN PO 08/26/16 23:30 09/25/16 23:29 Dextrose (Dextrose 50% 50ML Syringe) 50 ml UD PRN IV 08/26/16 23:30 09/25/16 23:29 Glucagon (Glucagon Inj) 1 mg UD PRN SQ 08/26/16 23:30 09/25/16 23:29 Miscellaneous Information (Consult Glycemic Management Pharmacy) 1 ea UD PRN N/A 08/26/16 23:45 09/25/16 23:44 Insulin Aspart SLIDING SCALE ACHS SC 08/27/16 16:00 09/26/16 15:59 08/28/16 11:45 3 UNITS Potassium Chloride/Sodium Chloride (Nss + 20meq KCl 1000ml) 1,000 ml @ 100 mls/hr Q10H IV 08/27/16 15:00 09/26/16 14:59 08/28/16 11:44 100 MLS/HR Insulin Aspart (novoLOG ASPART) SLIDING SCALE 0000,0400 SC 08/28/16 00:00 09/27/16 00:00 08/28/16 04:14 2 UNITS Metoprolol Tartrate (Lopressor Tab) 50 mg BID PO 08/28/16 21:00 09/27/16 20:59 Apixaban 5 mg 5 mg BID PO 08/28/16 11:00 09/27/16 10:59 08/28/16 11:38 5 MG Potassium Phosphate 21 mmol/ Sodium Chloride 507 ml @ 140 mls/hr TODAY@1100 IV 08/28/16 11:00 08/28/16 14:38 08/28/16 11:44 140 MLS/HR Ampicillin Sodium/ Sulbactam Sodium/ Sodium Chloride (Unasyn Inj/Nss 100ml) 104 ml @ 200 mls/hr Q6H IV 08/28/16 11:00 09/07/16 10:59 08/28/16 11:43 200 MLS/HR Insulin Glargine (Lantus Solostar Pen) SEE PROTOCOL TEXT BID SC 08/28/16 21:00 09/27/16 20:59 Objective Vital Signs Date Time Temp Pulse Resp B/P Pulse Ox O2 Delivery O2 Flow Rate FiO2 08/28/16 11:29 36.9 110 95 139/66 94 08/28/16 07:40 Room Air 08/28/16 07:28 36.8 118 18 95/54 96 08/28/16 04:00 Room Air 08/28/16 03:55 36.5 113 19 107/72 97 Room Air 08/28/16 00:00 Room Air 08/27/16 23:39 36.9 98 20 87/52 97 Room Air 08/27/16 20:00 Room Air 08/27/16 19:37 36.4 114 20 99/56 99 Room Air 08/27/16 17:10 36.6 115 17 108/67 95 Room Air 08/27/16 16:57 36.6 115 17 108/67 95 Room Air 08/27/16 16:40 36.6 115 17 95 08/27/16 15:56 Room Air 08/27/16 15:55 36.8 120 20 105/58 98 Room Air Physical Exam General Appearance: WD/WN, no apparent distress Eyes: normal inspection ENT: normal ENT inspection, hearing grossly normal, + pertinent finding (left sided parotid swelling with some tenderness on deep palpation. very poor dental hygiene) Neck: supple Respiratory/Chest: chest non-tender, lungs clear, normal breath sounds, no respiratory distress, no accessory muscle use Cardiovascular: + tachycardia, + irregularly irregular Abdomen: normal bowel sounds, non tender, soft Extremities: normal range of motion, non-tender, no pedal edema Neurologic/Psychiatric: alert, normal mood/affect, oriented x 3 Skin: normal color Laboratory Results 08/28/16 07:36 Red Blood Count 4.32, Mean Corpuscular Volume 77.3, Mean Corpuscular Hemoglobin 27.8, Mean Corpuscular Hemoglobin Concent 35.9, Mean Platelet Volume 8.6, Neutrophils (%) (Auto) 77.6, Lymphocytes (%) (Auto) 16.0, Monocytes (%) (Auto) 6.3, Eosinophils (%) (Auto) 0.0, Basophils (%) (Auto) 0.0, Neutrophils # (Auto) 5.56, Lymphocytes # (Auto) 1.15, Monocytes # (Auto) 0.45, Eosinophils # (Auto) 0.00, Basophils # (Auto) 0.00 08/28/16 07:36 Test 08/27/16 14:29 08/28/16 07:36 08/28/16 10:54 Troponin I 6.230 ng/ml (0-0.045) White Blood Count 7.17 K/uL (4.8-10.8) Red Blood Count 4.32 M/uL (4.7-6.1) Hemoglobin 12.0 g/dL (14.0-18.0) Hematocrit 33.4 % (42-52) Mean Corpuscular Volume 77.3 fL (80-100) Mean Corpuscular Hemoglobin 27.8 pg (25-34) Mean Corpuscular Hemoglobin Concent 35.9 g/dl (32-36) Platelet Count 177 K/uL (130-400) Mean Platelet Volume 8.6 fL (7.4-10.4) Neutrophils (%) (Auto) 77.6 % Lymphocytes (%) (Auto) 16.0 % Monocytes (%) (Auto) 6.3 % Eosinophils (%) (Auto) 0.0 % Basophils (%) (Auto) 0.0 % Neutrophils # (Auto) 5.56 K/uL (1.4-6.5) Lymphocytes # (Auto) 1.15 K/uL (1.2-3.4) Monocytes # (Auto) 0.45 K/uL (0.11-0.59) Eosinophils # (Auto) 0.00 K/uL (0-0.5) Basophils # (Auto) 0.00 K/uL (0-0.2) RDW Standard Deviation 38.4 fL (36.4-46.3) RDW Coefficient of Variation 13.4 % (11.5-14.5) Immature Granulocyte % (Auto) 0.1 % Immature Granulocyte # (Auto) 0.01 K/uL (0.00-0.02) Anion Gap 12.0 mmol/L (3-11) Est Creatinine Clear Calc Drug Dose 155.0 ml/min Estimated GFR () 134.0 Estimated GFR (Non- 115.6 BUN/Creatinine Ratio 28.1 (10-20) Calcium Level 7.6 mg/dl (8.5-10.1) Phosphorus Level 1.6 mg/dl (2.5-4.9) Magnesium Level 2.3 mg/dl (1.8-2.4) Thyroid Stimulating Hormone (TSH) 1.120 uIu/ml (0.300-4.500) Bedside Glucose 154 mg/dl (70-99) Date/Time Source Procedure Growth Status 08/27/16 15:40 Nasal MRSA DNA Surveillance Screen - Final Specimen Negative for MRSA by DNA Probe Complete NECK ULTRASOUND HISTORY: left parotid swelling COMPARISON: None. FINDINGS: Real-time sonographic imaging of the left parotid gland was performed. The left parotid gland appears hyperechoic and edematous. There are few prominent lymph nodes in within or adjacent to the parotid gland with the largest measuring 1.1 x 0.9 cm. IMPRESSION: Echogenic and edematous left parotid gland which favors a parotitis. There are few prominent lymph nodes within or adjacent to the parotid gland which are likely reactive. Electronically signed by: Compa Ramirez M.D. 08/28/2016 8:10 AM Dictated Date/Time: 08/28/2016 8:09 AM Assessment and Plan 55 y/o M with no significant PMH presented with c/o nausea, vomiting and diarrhea which started 4 days [employer] . On arrival he was found to be in Afib with RVR and had EKG changes indicating a inferior AR. He underwent a cardiac cath and had two stents placed in RCA. He was also found to be in DKA and was started on a DKA protocol and currently transitioned to SQ insulin. Was notified by nursing yesterday that a family member had noticed left sided jaw swelling but he denied any fevers/chills, URTI s/s, rashes , US of the skin/ soft tissue was ordered which revealed parotitis with reactive lymph nodes. denies any pain in the area , difficulty chewing but hasn't had any dental follow up in several years and usually consumes sugary food. continues to be in A fib overnight though he is asymptomatic Left sided parotitis: - Soft tissue US: Echogenic and edematous left parotid gland which favors a parotitis. There are few prominent lymph nodes within or adjacent to the parotid gland which are likely reactive. - Started on IV Unasyn because of concerns of loss of follow up and considering poor dental hygiene - will need to follow up with dental/ENT as an OP Acute inferior STEMI s/p 2 drug eluting stents in RCA - Continue dual antiplatelet therapy - Metoprolol increased to 50 mg BID due to atrial fibrillation - Lisinopril currently held due to low BP and statin added Atrial fibrillation with RVR - asymptomatic - electrolytes( k), TSH WNL - [id number] score of 2 - Metoprolol increased to 50 mg BID per cardiology - AC with eliquis( he is currently unemployed, will check if his insurance would cover the cost of eliquis) DKA with newly diagnosed DM - Hba1c at 12.9 - managed per protocol - glycemic control per pharmacy * Change Lantus 15 units SQ BID; give 1/2 dose (8 units) if BSG less than 120 * Continuing correction factor of 25 mg/dl/unit * Continuing carb ratio of 1 unit per 9 grams CHO consumed * Continuing goal range of Low 120 mg/dL - High 160 mg/dL * Continue 0000 + 0400 checks one more night to allow for tight glycemic control in the setting of recent STEMI Hypophosphatemia: - Phos at 1.6 - 21 mEQ Kphos added Full code DVT prophylaxis: Heparin SQ Monitor in tele Resident Tracking Resident Involvement: Resident Care Provided Care Provided: Adult Hospital Medicine Reviewed: Pt Seen/Exam by Me History Pt is fatigued. Has been tolerating PO today, no n/v. Intake is down but states "I've eaten more for lunch than I have in the last week". Pt has no pain related to his jaw, mouth, face. No fever or rash. He does note that his hands are swelling a bit. Agree with ROS/HPI as noted. General Appearance: WD/WN, no apparent distress Respiratory: normal breath sounds, no respiratory distress Cardiovascular: normal peripheral pulses, regular rate, rhythm, other (UE edema noted) Gastrointestinal: non tender, soft Extremities: non-tender, no pedal edema Neurologic/Psychiatric: alert, normal mood/affect Skin Characteristics: normal color, warm/dry Assessment/Plan Resident Physician Supervision Note: I discussed the case with the resident and agree with the findings and plan as documented in the note. Any exceptions or clarifications are listed here: Documented By: Carmen De Oliveira Agree with plan as outlined above New dx DM, afib with RVR BS improving, A1c 12.3, will need insulin on d/c STEMI being managed by cardiology, planning for triple therapy x1 month Decrease IVF for UE swelling TSH pending Parotitis noted on US, pt is uncertain when swelling started as he was not the one to note it to resident, start unasyn given poor dentition
[2016-08-28] MEDS ORDERED: AMOXICILLIN/CLAVULANATE TAB 875 MG TAB PO SCH (16:45)
[2016-08-28] MEDS ORDERED: PANTOprazole SOD 40 MG TAB PO ONE (18:15)
[2016-08-28] MEDS ORDERED: INSULIN GLARGINE SOLOSTAR 100 UNITS/ML 3 ML PEN SC SCH (21:00)
[2016-08-28] MEDS: METOPROLOL TARTRATE 50 MG TAB PO SCH (21:00)
[2016-08-29] VITALS (8 sets, daily range): BP systolic 90–134; BP diastolic 56–72; PULSE 63–82; TEMP 36.5–37; O2SAT 96–98; BMI 26.3
[2016-08-29] MEDS: INSULIN ASPART 100 UNITS/ML 3 ML PEN SC SCH ×6 (00:01→20:33)
[2016-08-29] MEDS: AMPICILLIN/SULBACTAM SOD INJ 1,500 MG in SODIUM CHLORIDE 0.9% 100ML 100 ML IV SCH ×4 (04:38→22:41)
[2016-08-29] MEDS: NSS + 20MEQ KCL 1000ML 1,000 ML IV SCH ×2 (07:00→20:34)
[2016-08-29] MEDS ORDERED: INSULIN HUMAN 70% NPH/30% REGULAR SC SCH ×2 (07:30→16:45)
[2016-08-29 07:45] LABS: BASO % 0.3 %; BASO ABS # 0.02 K/uL (0-0.2); COMPLETE YES; EOS % 0.3 %; HEMATOCRIT 34.3 % (42-52); IG% 0.6 %; LYMPH % 11.6 %; LYMPH ABS # 0.92 K/uL (1.2-3.4); MEAN CELL VOLUME 77.6 fL (80-100); MEAN CORPUSCULAR HEMOGLOBIN 28.5 pg (25-34); MEAN CORPUSCULAR HGB CONC 36.7 g/dl (32-36); MEAN PLATELET VOLUME 9.2 fL (7.4-10.4); MONO % 14.5 %; NEUT % 72.7 %; PLATELET COUNT 144 K/uL (130-400); RED BLOOD COUNT 4.42 M/uL (4.7-6.1); WHITE BLOOD COUNT 7.95 K/uL (4.8-10.8)
[2016-08-29] MEDS: APIXABAN 2.5 MG TAB PO SCH (08:02)
[2016-08-29] MEDS: ATORVASTATIN 40 MG TAB PO SCH (08:02)
[2016-08-29] MEDS: CLOPIDOGREL BISULFATE 75 MG TAB PO SCH (08:02)
[2016-08-29] MEDS: ASPIRIN 81 MG ECTAB PO SCH (08:02)
[2016-08-29 08:05] LABS: BUN/CREATININE RATIO 26.9 (10-20); CALCIUM 7.6 mg/dl (8.5-10.1); CREATININE 0.51 mg/dl (0.60-1.40); MAGNESIUM 2.1 mg/dl (1.8-2.4); PHOSPHORUS 1.9 mg/dl (2.5-4.9); POTASSIUM 3.3 mmol/L (3.5-5.1)
[2016-08-29] MEDS: LISINOPRIL 5 MG TAB PO SCH (08:49)
[2016-08-29] MEDS ORDERED: PANTOprazole SOD 40 MG TAB PO SCH (09:00)
--- NOTE | 2016-08-29 09:26 | Cardiology Follow-Up ---
Subjective Subjective Date of Service: Aug 29, 2016. Pt evaluation today including: conversation w/ patient, physical exam, chart review, lab review, review of studies, review of inpatient medication list Additional Details: Feeling better this AM. No chest pain, shortness of breath No palpitations. Left facial swelling feeling improved. telemetry reviewed -- converted back to sinus rhythm overnight. intermittent axis change -- question accelerated idioventricular rhythm Problem List Medical Problems: (1) Atrial fibrillation with RVR Status: Acute (2) DKA (diabetic ketoacidoses) Status: Acute (3) ST elevation MA (STEMI) Status: Acute (4) ST elevation myocardial infarction (STEMI) of inferior wall Status: Acute Review of Systems Constitutional: No chills, No fever Eyes: No worsening of vision ENT: No hearing loss Respiratory: No cough, No shortness of breath, No sputum, No wheezing Cardiac: No PND, No chest pain, No palpitations Abdomen: No diarrhea, No nausea, No pain, No vomiting Musculoskeletal: No joint pain Male : No dysuria Neurologic: No memory loss Psychiatric: No depression symptoms Heme: No abnormal bleeding/bruising Skin: No rash Objective Vital Signs Last Vital Signs Documentation Date Time Temp Pulse Resp B/P Pulse Ox O2 Delivery O2 Flow Rate FiO2 08/29/16 08:06 80 92/57 08/29/16 07:22 36.7 16 98 Room Air 08/26/16 18:50 3.0 Physical Exam: General Appearance: no apparent distress ENT: + pertinent finding (left sided parotid swelling improving. very poor dental hygiene) Neck: supple Respiratory/Chest: lungs clear, normal breath sounds, no respiratory distress Cardiovascular: regular rate, rhythm, no murmur, + irregularly irregular Abdomen: normal bowel sounds, non tender, soft Extremities: no pedal edema Neurologic/Psychiatric: alert, normal mood/affect, oriented x 3 Skin: normal color Assessment and Plan 1. Inferior STEMI s/p PPCI with MARILYN x2 to proximal to mid RCA 2. DKA/newly diagnosed diabetes 3. AF + RVR 4. ION 5. Parotitis 6. ? dark stools 7. Possible accelerated idioventricular rhythm. Remains chest pain free, hemodynamically stable. LV function preserved on echo with only mild inferior/RV hypokinesis. Converted back to sinus rhythm yesterday. Questionable accelerated junctional/ idioventricular rhythm -- Continue ASA/plavix -- Continue current metoprol 50 mg BID. Can hold TATIANNA inhibitor. -- high dose statin -- Supplement lytes, Repeat ECG with ?able accelerated junctional rhythm -- discussed with patient risk/benefits of anticoagulation for AF going forward -- feel net clinical benefit is probably in favor of anticoagulation but benefit probably small while on DAPT. With multiple new diagnoses/meds for patient would recommend sending home on ASA /plavix alone. Patient agreeable to this plan and will reassess risks/benefits at follow-up. -- From cardiac standpoint OK for discharge when other medical issues resolved. -- Can follow-up with me in 2-3 weeks. Medications: Current Inpatient Medications Medications (Trade) Dose Ordered Sig/Raymond Route Start Time Stop Time Status Last Admin Dose Admin Aspirin (Ecotrin Tab) 81 mg QAM PO 08/27/16 09:00 09/26/16 08:59 08/29/16 08:02 81 MG Clopidogrel Bisulfate (plAVix TAB) 75 mg QAM PO 08/27/16 09:00 09/26/16 08:59 08/29/16 08:02 75 MG Atorvastatin Calcium (Lipitor Tab) 80 mg QAM PO 08/27/16 09:00 09/26/16 08:59 08/29/16 08:02 80 MG Lisinopril (Zestril Tab) 5 mg QAM PO 08/27/16 09:00 09/26/16 08:59 08/28/16 07:35 5 MG Acetaminophen (Tylenol Tab) 650 mg Q4H PRN PO 08/26/16 22:00 09/25/16 21:59 Ondansetron HCl (Zofran Inj) 4 mg Q6H PRN IV 08/26/16 22:45 09/25/16 22:44 08/27/16 06:08 4 MG Glucose (Glucose 40% Gel) UD PRN PO 08/26/16 23:30 09/25/16 23:29 Glucose (Glucose Chew Tab) 1 tabs UD PRN PO 08/26/16 23:30 09/25/16 23:29 Dextrose (Dextrose 50% 50ML Syringe) 50 ml UD PRN IV 08/26/16 23:30 09/25/16 23:29 Glucagon (Glucagon Inj) 1 mg UD PRN SQ 08/26/16 23:30 09/25/16 23:29 Miscellaneous Information (Consult Glycemic Management Pharmacy) 1 ea UD PRN N/A 08/26/16 23:45 09/25/16 23:44 Insulin Aspart SLIDING SCALE ACHS SC 08/27/16 16:00 09/26/16 15:59 08/28/16 21:38 3 UNITS Potassium Chloride/Sodium Chloride (Nss + 20meq KCl 1000ml) 1,000 ml @ 75 mls/hr [id number] IV 08/27/16 15:00 08/29/16 07:00 75 MLS/HR Metoprolol Tartrate (Lopressor Tab) 50 mg BID PO 08/28/16 21:00 09/27/16 20:59 Apixaban 5 mg 5 mg BID PO 08/28/16 11:00 09/27/16 10:59 08/29/16 08:02 5 MG Ampicillin Sodium/ Sulbactam Sodium/ Sodium Chloride (Unasyn Inj/Nss 100ml) 104 ml @ 200 mls/hr Q6H IV 08/28/16 11:00 09/07/16 10:59 08/29/16 04:38 200 MLS/HR Pantoprazole Sodium (Protonix Tab) 40 mg QAM PO 08/29/16 09:00 09/28/16 08:59 08/29/16 08:03 40 MG Insulin Human Isoph/Insulin Regular (novoLIN 70/30 REGULAR) 24 units DAILY@0730 UT 08/29/16 07:30 09/28/16 07:29 08/29/16 08:02 24 UNITS Insulin Human Isoph/Insulin Regular (novoLIN 70/30 REGULAR) 12 units DAILY@1645 UT 08/29/16 16:45 09/28/16 16:44 Lab Results: 08/29/16 07:21 Red Blood Count 4.42, Mean Corpuscular Volume 77.6, Mean Corpuscular Hemoglobin 28.5, Mean Corpuscular Hemoglobin Concent 36.7, Mean Platelet Volume 9.2, Neutrophils (%) (Auto) 72.7, Lymphocytes (%) (Auto) 11.6, Monocytes (%) (Auto) 14.5, Eosinophils (%) (Auto) 0.3, Basophils (%) (Auto) 0.3, Neutrophils # (Auto ) 5.79, Lymphocytes # (Auto) 0.92, Monocytes # (Auto) 1.15, Eosinophils # (Auto ) 0.02, Basophils # (Auto) 0.02 08/29/16 07:21 Test 08/29/16 06:31 08/29/16 07:21 Bedside Glucose 113 mg/dl (70-99) White Blood Count 7.95 K/uL (4.8-10.8) Red Blood Count 4.42 M/uL (4.7-6.1) Hemoglobin 12.6 g/dL (14.0-18.0) Hematocrit 34.3 % (42-52) Mean Corpuscular Volume 77.6 fL (80-100) Mean Corpuscular Hemoglobin 28.5 pg (25-34) Mean Corpuscular Hemoglobin Concent 36.7 g/dl (32-36) Platelet Count 144 K/uL (130-400) Mean Platelet Volume 9.2 fL (7.4-10.4) Neutrophils (%) (Auto) 72.7 % Lymphocytes (%) (Auto) 11.6 % Monocytes (%) (Auto) 14.5 % Eosinophils (%) (Auto) 0.3 % Basophils (%) (Auto) 0.3 % Neutrophils # (Auto) 5.79 K/uL (1.4-6.5) Lymphocytes # (Auto) 0.92 K/uL (1.2-3.4) Monocytes # (Auto) 1.15 K/uL (0.11-0.59) Eosinophils # (Auto) 0.02 K/uL (0-0.5) Basophils # (Auto) 0.02 K/uL (0-0.2) RDW Standard Deviation 38.9 fL (36.4-46.3) RDW Coefficient of Variation 13.6 % (11.5-14.5) Immature Granulocyte % (Auto) 0.6 % Immature Granulocyte # (Auto) 0.05 K/uL (0.00-0.02) Venous Blood pH 7.46 (7.36-7.41) Anion Gap 11.0 mmol/L (3-11) Est Creatinine Clear Calc Drug Dose 176.3 ml/min Estimated GFR () 141.2 Estimated GFR (Non- 121.9 BUN/Creatinine Ratio 26.9 (10-20) Calcium Level 7.6 mg/dl (8.5-10.1) Phosphorus Level 1.9 mg/dl (2.5-4.9) Magnesium Level 2.1 mg/dl (1.8-2.4)
[2016-08-29] MEDS: METOPROLOL TARTRATE 50 MG TAB PO SCH ×2 (09:28→20:33)
[2016-08-29] MEDS ORDERED: POTASSIUM PHOS 3 MMOL/1 ML INFUSION IV STA (10:59)
[2016-08-29] MEDS ORDERED: POTASSIUM PHOSPHATE INJ 15 MMOL in SODIUM CHLORIDE 0.9% 250ML 250 ML IV SCH (11:30)
--- NOTE | 2016-08-29 11:38 | Pharmacy Progress Note ---
Glycemic Control: Progress Nt Date of Service Aug 29, 2016. Scope Glycemic Pharmacist consulted by Dr Crandall on 08/27/16 for glycemic control and to write orders per [facility] inpatient glycemic control protocol. Objective Accuchecks BSG (last 24hrs): Test 08/28/16 15:53 08/28/16 20:24 08/28/16 23:59 08/29/16 04:30 Bedside Glucose 170 mg/dl (70-99) 216 mg/dl (70-99) 163 mg/dl (70-99) 128 mg/dl (70-99) Test 08/29/16 06:31 08/29/16 07:21 08/29/16 11:06 Bedside Glucose 113 mg/dl (70-99) 116 mg/dl (70-99) Random Glucose 108 mg/dl (70-99) Laboratory Data (last 24hrs) Test 08/29/16 07:21 Anion Gap 11.0 mmol/L BUN/Creatinine Ratio 26.9 Blood Urea Nitrogen 14 mg/dl Creatinine 0.51 mg/dl Potassium Level 3.3 mmol/L Sodium Level 141 mmol/L White Blood Count 7.95 K/uL Red Blood Count 4.42 M/uL Hemoglobin 12.6 g/dL Hematocrit 34.3 % Mean Corpuscular Volume 77.6 fL Mean Corpuscular Hemoglobin 28.5 pg Mean Corpuscular Hemoglobin Concent 36.7 g/dl Platelet Count 144 K/uL Mean Platelet Volume 9.2 fL Neutrophils (%) (Auto) 72.7 % Lymphocytes (%) (Auto) 11.6 % Monocytes (%) (Auto) 14.5 % Eosinophils (%) (Auto) 0.3 % Basophils (%) (Auto) 0.3 % Neutrophils # (Auto) 5.79 K/uL Lymphocytes # (Auto) 0.92 K/uL Monocytes # (Auto) 1.15 K/uL Eosinophils # (Auto) 0.02 K/uL Basophils # (Auto) 0.02 K/uL HbA1c: Test 08/26/16 18:08 Hemoglobin A1c 12.3 % (4.5-5.6) H Recent Pertinent Medications Outpatient Anti-diabetic Regimen: * no prior hx or dx of DM * A1c = 12.3 % 08/27/16 The patient is currently receiving: * Basal insulin: Lantus 15 units SQ BID given yesterday * Correctional Insulin: Novolog Correction per scale ACHS and 0000 + 0400 Goal Range: Low 120 mg/dL - High 160 mg/dL Correction Factor: 25 mg/dL/unit * Prandial insulin: Per carb ratio of 1 unit per 9 grams CHO consumed * Oral Agents: None currently Risk Factors for Insulin Resistance: * Infection: starting Unasyn today for parotiditis * Recent Surgery: POD # 3 s/p cardiac cath w/ stenting of RCA * Diet: ordered T2DM / AHA diet; per patient his appetite has been poor, this morning however he states he was able to eat better than prior days Assessment & Plan ASSESSMENT: 08/27/16 (per prior note) * 55 yo M admitted with DKA, new onset diabetes, initiated on insulin drip per severe stress protocol * On admission, BSGs found to be near 500 mg/dL * 10 units of Regular insulin IV X 1 given in the ED * Insulin drip then initiated and patient transferred to ICU * A1c of 12.3% indicative of new onset diabetes/poor glycemic control * Per PRP @1200 today, patient meets criteria to be transitioned off insulin drip Criteria: 1. Serum glucose below 200 mg/dL (DKA) or 250 to 300 mg/dL (HHS) 2. Serum anion gap <12 meq/L 3. Serum bicarbonate =15 meq/L 4. Venous pH >7.30 * My plan will be to change goal range on insulin drip to ICU goal range for easier transition and give Lantus now * I will base basal/bolus regimen on a stress of 2, if sustained hyperglycemia, then a stress of 3 will be used * Drip rates have been steady at 3.2 units/hr but this is taking into consideration dextrose in fluids and I do not feel comfortable starting > stress of 3 in newly diagnosed diabetic * Spoke with provider, patient is eating and gap closed. Remove dextrose from fluids to further aid in glycemic control * ADA & AACE recommend a goal blood sugar range 140-180 mg/dl for the majority of critically ill & non-critically ill patients. However, more stringent targets may be selected in individual cases. 08/28/16 * Patient was successfully transitioned off insulin drip yesterday evening * BSGs have ranged 154-192 since transitioned off the drip; acceptable for first 24 hrs off drip * AG mildly elevated this AM (AG = 12); Bicarb unchanged since yesterday ( Bicarb = 17) * No PO intake noted yet per carb counts in nursing documentation, thus current BSGs are fasting BSGs * He is currently ordered a Lantus sliding scale, with 3 possible doses. Would prefer to simplify Lantus order and base dose upon anticipated daily insulin requirement of ~0.6-0.7units/kg/day. 08/29/16 * Glycemic control continues to improve * Fasting BSG down to 108-113 this AM w/ 30 units of basal insulin on board * Appetite has been poor, patient c/o bloating and upset stomach which he blames on new medications. * informatics educator had contacted me yesterday and informed me that this patient has high [id number] medication expenses due to high deductible. DE had recommended transitioning patient to Novolin 70/30 insulin for cost saving purposes and ease of use for newly diagnosed diabetic in whom compliance may be an issue * Over the last 24 hours he has received 40 units of SQ insulin with poor dietary intake. Given ongoing GI complaints and need to transition to 70/30 today - which has a much higher risk of hypoglycemia, will base new total daily insulin dose upon a need of ~36 units/day with current dietary habits. Will administer 2/3 in AM w/ breakfast and 1/3 in PM with dinner. * Encouraged patient to try to eat 3 meals today and stressed importance of eating 3 meals consistently while on 70/30 insulin at home. * This patient does not have a PCP - recommend he have an appt w/ PCP within a few 7 days of discharge to help with diabetic management, insulin adjustments. * Will attempt to review insulin administration technique, dietary compliance, s /s hyper- and hypoglycemia and sick-day guidelines, and glycemic goals. PLAN FOR INPATIENT GLYCEMIC CONTROL: * Begin Novolin 70/30 insulin 24 units w/ breakfast + 12 units with dinner * Continuing correction factor of 25 mg/dl/unit * Discontinue carb ratio as 70/30 provides prandial insulin coverage * Continuing goal range of Low 120 mg/dL - High 160 mg/dL * D/C the 0000 + 0400 BSG checks to allow for better sleep hygiene RECOMMENDATIONS FOR DISCHARGE: * BSG testing 4 x daily, ACHS would be ideal initially. However I suspect this patient may not be willing to test this frequently. At a minimum he should be testing twice daily (fasting AM and prior to evening 70/30 injection) * Novolin 70/30 insulin, inject 24 units with breakfast + 12 units with dinner * F/U with PCP / endocrinology within 7 days of discharge * Keep a log of BSG results for f/u appt * Stress the need to eat 3 meals per day, avoid skipping meals when using this insulin formulation * Please note that the plan above was derived based on current level of insulin resistance and hospital stress. These recommendations are appropriate for inpatient admission only. Plan of care upon discharge will need to be reassessed to avoid potential outpatient hypo/hyperglycemia. Thank you.
[2016-08-29 12:33] LABS: HEMATOCRIT 34.5 % (42-52)
--- NOTE | 2016-08-29 18:01 | Family Medicine Progress Note ---
Progress Note Date of Service Aug 29, 2016. Subjective Pt evaluation today including: conversation w/ patient, physical exam, chart review, lab review Pain: denies any pain PO Intake: good Voiding: no voiding problems 55 y/o M with no significant PMH presented with c/o nausea, vomiting and diarrhea which started 4 days [employer] . On arrival he was found to be in Afib with RVR and had EKG changes indicating a inferior AZ. He underwent a cardiac cath and had two stents placed in RCA. He was also found to be in DKA and was started on a DKA protocol and currently transitioned to SQ insulin 70/30. His family member noted that he had dark stools yesterday .Hemoccult was positive this morning Feels lot better today . Denies any CP/SOB/palpitations currently. No more episodes of N/V/D /abdominal pain . Constitutional: No chills, No fever Eyes: No worsening of vision ENT: No hearing loss Respiratory: No cough, No shortness of breath, No sputum, No wheezing Cardiovascular: No PND, No chest pain, No edema Abdomen: No nausea, No pain, No vomiting Musculoskeletal: No joint pain Male : No dysuria Psychiatric: No depression symptoms Medications Current Inpatient Medications Medications (Trade) Dose Ordered Sig/Raymond Route Start Time Stop Time Status Last Admin Dose Admin Aspirin (Ecotrin Tab) 81 mg QAM PO 08/27/16 09:00 09/26/16 08:59 08/29/16 08:02 81 MG Clopidogrel Bisulfate (plAVix TAB) 75 mg QAM PO 08/27/16 09:00 09/26/16 08:59 08/29/16 08:02 75 MG Atorvastatin Calcium (Lipitor Tab) 80 mg QAM PO 08/27/16 09:00 09/26/16 08:59 08/29/16 08:02 80 MG Lisinopril (Zestril Tab) 5 mg QAM PO 08/27/16 09:00 09/26/16 08:59 08/28/16 07:35 5 MG Acetaminophen (Tylenol Tab) 650 mg Q4H PRN PO 08/26/16 22:00 09/25/16 21:59 Ondansetron HCl (Zofran Inj) 4 mg Q6H PRN IV 08/26/16 22:45 09/25/16 22:44 08/27/16 06:08 4 MG Glucose (Glucose 40% Gel) UD PRN PO 08/26/16 23:30 09/25/16 23:29 Glucose (Glucose Chew Tab) 1 tabs UD PRN PO 08/26/16 23:30 09/25/16 23:29 Dextrose (Dextrose 50% 50ML Syringe) 50 ml UD PRN IV 08/26/16 23:30 09/25/16 23:29 Glucagon (Glucagon Inj) 1 mg UD PRN SQ 08/26/16 23:30 09/25/16 23:29 Miscellaneous Information (Consult Glycemic Management Pharmacy) 1 ea UD PRN N/A 08/26/16 23:45 09/25/16 23:44 Insulin Aspart SLIDING SCALE ACHS SC 08/27/16 16:00 09/26/16 15:59 08/28/16 21:38 3 UNITS Potassium Chloride/Sodium Chloride (Nss + 20meq KCl 1000ml) 1,000 ml @ 75 mls/hr [id number] IV 08/27/16 15:00 08/29/16 07:00 75 MLS/HR Metoprolol Tartrate 50 mg 50 mg BID PO 08/28/16 21:00 09/27/16 20:59 08/29/16 09:28 50 MG Ampicillin Sodium/ Sulbactam Sodium/ Sodium Chloride (Unasyn Inj/Nss 100ml) 104 ml @ 200 mls/hr Q6H IV 08/28/16 11:00 09/07/16 10:59 08/29/16 12:21 200 MLS/HR Insulin Human Isoph/Insulin Regular (novoLIN 70/30 REGULAR) 24 units DAILY@0730 SC 08/29/16 07:30 09/28/16 07:29 Future Hold 08/29/16 08:02 24 UNITS Insulin Human Isoph/Insulin Regular (novoLIN 70/30 REGULAR) 12 units DAILY@1645 SC 08/29/16 16:45 09/28/16 16:44 Pantoprazole Sodium (Protonix Tab) 40 mg BID PO 08/29/16 21:00 09/28/16 20:59 Objective Vital Signs Date Time Temp Pulse Resp B/P Pulse Ox O2 Delivery O2 Flow Rate FiO2 08/29/16 16:07 36.6 64 18 109/67 96 Room Air 08/29/16 16:00 Room Air 08/29/16 12:00 Room Air 08/29/16 10:45 36.8 70 16 90/56 97 Room Air 08/29/16 08:06 80 92/57 08/29/16 08:00 Room Air 08/29/16 07:22 36.7 82 16 101/61 98 Room Air 08/29/16 04:00 98 Room Air 08/29/16 04:00 36.6 77 16 134/72 96 Room Air 08/29/16 00:04 37.0 76 20 104/65 98 Room Air 08/28/16 23:59 97 Room Air 08/28/16 20:00 97 Room Air 08/28/16 19:29 36.8 68 18 99/62 97 Room Air Physical Exam General Appearance: WD/WN, no apparent distress Eyes: normal inspection ENT: hearing grossly normal, + pertinent finding (left sided jaw swelling. Decreased tenderness.) Neck: supple Respiratory/Chest: chest non-tender, lungs clear, normal breath sounds, no respiratory distress, no accessory muscle use Cardiovascular: regular rate, rhythm Abdomen: normal bowel sounds, non tender, soft Extremities: no pedal edema Neurologic/Psychiatric: alert, normal mood/affect Laboratory Results 08/29/16 07:21 Red Blood Count 4.42, Mean Corpuscular Volume 77.6, Mean Corpuscular Hemoglobin 28.5, Mean Corpuscular Hemoglobin Concent 36.7, Mean Platelet Volume 9.2, Neutrophils (%) (Auto) 72.7, Lymphocytes (%) (Auto) 11.6, Monocytes (%) (Auto) 14.5, Eosinophils (%) (Auto) 0.3, Basophils (%) (Auto) 0.3, Neutrophils # (Auto ) 5.79, Lymphocytes # (Auto) 0.92, Monocytes # (Auto) 1.15, Eosinophils # (Auto ) 0.02, Basophils # (Auto) 0.02 08/29/16 12:10 08/29/16 07:21 Test 08/29/16 07:21 08/29/16 09:26 08/29/16 16:12 White Blood Count 7.95 K/uL (4.8-10.8) Red Blood Count 4.42 M/uL (4.7-6.1) Hemoglobin 12.6 g/dL (14.0-18.0) Hematocrit 34.3 % (42-52) Mean Corpuscular Volume 77.6 fL (80-100) Mean Corpuscular Hemoglobin 28.5 pg (25-34) Mean Corpuscular Hemoglobin Concent 36.7 g/dl (32-36) Platelet Count 144 K/uL (130-400) Mean Platelet Volume 9.2 fL (7.4-10.4) Neutrophils (%) (Auto) 72.7 % Lymphocytes (%) (Auto) 11.6 % Monocytes (%) (Auto) 14.5 % Eosinophils (%) (Auto) 0.3 % Basophils (%) (Auto) 0.3 % Neutrophils # (Auto) 5.79 K/uL (1.4-6.5) Lymphocytes # (Auto) 0.92 K/uL (1.2-3.4) Monocytes # (Auto) 1.15 K/uL (0.11-0.59) Eosinophils # (Auto) 0.02 K/uL (0-0.5) Basophils # (Auto) 0.02 K/uL (0-0.2) RDW Standard Deviation 38.9 fL (36.4-46.3) RDW Coefficient of Variation 13.6 % (11.5-14.5) Immature Granulocyte % (Auto) 0.6 % Immature Granulocyte # (Auto) 0.05 K/uL (0.00-0.02) Venous Blood pH 7.46 (7.36-7.41) Anion Gap 11.0 mmol/L (3-11) Est Creatinine Clear Calc Drug Dose 176.3 ml/min Estimated GFR () 141.2 Estimated GFR (Non- 121.9 BUN/Creatinine Ratio 26.9 (10-20) Calcium Level 7.6 mg/dl (8.5-10.1) Phosphorus Level 1.9 mg/dl (2.5-4.9) Magnesium Level 2.1 mg/dl (1.8-2.4) Stool Occult Blood POSITIVE (NEGATIVE) Bedside Glucose 86 mg/dl (70-99) Assessment and Plan 55 y/o M with no significant PMH presented with c/o nausea, vomiting and diarrhea which started 4 days [employer] . On arrival he was found to be in Afib with RVR and had EKG changes indicating a inferior AZ. He underwent a cardiac cath and had two stents placed in RCA. He was also found to be in DKA and was started on a DKA protocol and currently transitioned to SQ insulin. Had converted back to normal sinus rhythm overnight. He did have a few episodes of black stools which was heme occult positive this morning. GI bleeding: Likely secondary to AC ( aspirin/plavix/eliquis) - Like this has been stopped. He will need to continue aspirin and Plavix considering stent placement - Black stools tested positive for Hemoccult - Hemoglobin had dropped from 18.7 on admission to 14, currently at 12.6( it is likely this is dilutional considering fluid infusion) - Repeat hemoglobin at 1300 was 12.6 - Started on Protonix 40 mg twice a day - GI consult - awaiting input - Continue to monitor Left sided parotitis: - Soft tissue US: Echogenic and edematous left parotid gland which favors a parotitis. There are few prominent lymph nodes within or adjacent to the parotid gland which are likely reactive. - Started on IV Unasyn because of concerns of loss of follow up and considering poor dental hygiene - will need to follow up with dental/ENT as an OP Acute inferior STEMI s/p 2 drug eluting stents in RCA - Continue dual antiplatelet therapy - Metoprolol increased to 50 mg BID due to atrial fibrillation - Lisinopril currently held due to low BP and statin added Atrial fibrillation with RVR: Converted to sinus rhythm - [id number] score of 2 - Metoprolol increased to 50 mg BID per cardiology - After discussion with cardiology and the patient , eliquis has been stopped DKA with newly diagnosed DM - Hba1c at 12.9 - managed per protocol - glycemic control per pharmacy Hypophosphatemia: - Phos at 1.7 - 15 mEQ Kphos added Full code DVT prophylaxis: Heparin SQ Monitor in tele Continued [facility] [place] stay due to: abnormal vital signs Discharge planning: home Reviewed: Pt Seen/Exam by Me History Pt is a bit frustrated about the ongoing health issues that are occurring. He is going to meet with pharmacy this afternoon to discuss insulin management. His states she will be coming back over from work to attend this meeting in order to help pt with insulin use once home. Pt felt that he had a good day yesterday. He was eating more and felt better. He cannot really describe his stools, but they have been described by nursing as dark. No chest pain or SOB. Pt mostly just feels fatigued. He did note an epigastric pain after eating yesterday but this improved after starting a PPI. Agree with HPI/ROS as noted. General Appearance: WD/WN, no apparent distress Respiratory: normal breath sounds, no respiratory distress Cardiovascular: normal peripheral pulses, regular rate, rhythm Gastrointestinal: non tender, soft Extremities: non-tender, no pedal edema Neurologic/Psychiatric: alert, oriented x 3 Skin Characteristics: normal color, warm/dry Assessment/Plan Resident Physician Supervision Note: I discussed the case with the resident and agree with the findings and plan as documented in the note. Any exceptions or clarifications are listed here: Documented By: Carmen De Oliveira Agree with plan as outlined above New dx DM, afib with RVR BS improving, A1c 12.3, will need insulin on d/c, pharmacy is working with pt education also STEMI being managed by cardiology, planning for triple therapy x1 month however eliquis now on hold due to likely upper GIB GI c/s pending Aspirin/plavix to be maintained per cardiology due to new stent Parotitis noted on US, pt is uncertain when swelling started as he was not the one to note it to resident, unasyn given poor dentition
[2016-08-29] MEDS: PANTOprazole SOD 40 MG TAB PO SCH (20:32)
[2016-08-30 03:13] VITALS: BP 106/68; PULSE 60; TEMP 36.7; O2SAT 100
[2016-08-30] MEDS: AMPICILLIN/SULBACTAM SOD INJ 1,500 MG in SODIUM CHLORIDE 0.9% 100ML 100 ML IV SCH ×4 (04:32→23:38)
[2016-08-30] MEDS: INSULIN ASPART 100 UNITS/ML 3 ML PEN SC SCH ×4 (07:00→21:17)
--- NOTE | 2016-08-30 07:05 | GASTROINTESTINAL CONSULTATION ---
DATE OF CONSULTATION: 08/29/2016 REQUESTING PROVIDER: Dr. Lewis. HISTORY OF PRESENT ILLNESS: Mr. Puentes is a 55-year-old white male who presented to the ER on Saturday evening with nausea, vomiting and found to have a 100% RCA blockage with placement of 2 drug-eluting stents by interventional cardiology. Prior to that, patient had been experiencing an increased belching and epigastric burning often associated with meals but can occur without eating. The patient had no other GI symptom and has never experienced heartburn, history of peptic ulcer disease, chronic use of NSAIDs and takes no chronic medications at all. Upon admission, patient was found to not only have evidence of atrial fibrillation with RVR, he also had ST segment elevation in the inferior leads with the 100% RCA occlusion. Additionally, patient was found to be in DKA, although has no prior history of diabetes. He has been doing well overall since his admission to the ER and the interventions above. PAST MEDICAL AND SURGICAL HISTORY: None. FAMILY HISTORY: Significant for coronary artery disease, diabetes in mother along with atrial fibrillation in mother. SOCIAL HISTORY: The patient stopped smoking 5 years ago, is . He does not use alcoholic beverages. ALLERGIES: He has no known drug allergies. REVIEW OF SYSTEMS: Otherwise noncontributory based on 14-point exam. The patient denies odynophagia, dysphagia, hematemesis or coffee-ground emesis and does not report either changes in stool habits in the way of diarrhea or constipation and denies melena or bright red blood per rectum. Since starting the aspirin and Plavix for his recent stent placement, patient was found to be heme positive. PHYSICAL EXAMINATION: VITAL SIGNS: On admission on August 26, blood pressure 128/72, pulse ox 90 on room air, heart rate was 155, respirations 30. His vital signs today are afebrile at 36.6, blood pressure 109/67, respirations 18, heart rate 64, he is 96% on room air. GENERAL: The patient is awake, alert and oriented x3. The patient is resting comfortably in bed with his mother and family at bedside including his daughter and . HEENT: Sclerae are anicteric. Conjunctiva moist. Oral mucosa is moist. NECK: There is no cervical or supraclavicular adenopathy. I do not appreciate thyromegaly. HEART: Normal S1, S2. LUNGS: Clear to auscultation without rales, rhonchi or wheezes. ABDOMEN: Soft, nontender, nondistended with good bowel sounds. There is no rebound or guarding. I do not appreciate hepatosplenomegaly. There are no abdominal bruits, ascites or shifting dullness. EXTREMITIES: Without clubbing, cyanosis or edema. RECTAL: Deferred at this time. LABORATORY STUDIES: Hemoglobin on presentation was hemoconcentrated at 18.7, but after treatment of DKA and rehydration, patient's hemoglobin on August 27 was 14.0 and on the was 12.0. Today this morning and again at noon, hemoglobin was 12.6. His MCV however did drift down with hydration and is currently 77.6, white count normal at 7.95, platelets 144,000. Chemistries today show potassium is slightly low at 3.3, bicarbonate 19, BUN and creatinine of 14 and 0.5, phosphorus is low at 1.9. Blood sugars are good at 113 and 116. INR is 1.0, PTT is 33.4. IMAGING STUDIES: Include a chest x-ray on admission that showed no acute cardiopulmonary changes. IMPRESSION AND PLAN: The patient with evidence of a mild microcytic anemia, heme positive during this admission without a preceding history of melena or bright red blood per rectum, coffee-ground emesis and only a few days prior to his ER visit of nausea, vomiting and burning in the lower chest and epigastrium. Unclear if this represented angina equivalent. There is no chronic nonsteroidal anti-inflammatory drug or aspirin use. Given these changes, ultimately patient will require upper endoscopy and colonoscopy as he has not had a screening colonoscopy at age 51. There is no family history of colorectal cancer. Differential diagnoses include peptic ulcer disease, gastritis as well as possible lower gastrointestinal bleeding sources, although patient did report that there was some oral bleeding at the time of the ER visit and this may have contributed to the blood detected. We will defer to cardiology and primary care service as to optimal timing for these procedures, and this will be best determined by the need for anticoagulation either with therapeutic heparin, Coumadin or novel anticoagulants. The patient ate today and I believe it is reasonable for him to continue with light meal through the evening but we will make him n.p.o. after midnight in anticipation of perhaps doing at least upper endoscopy tomorrow. I believe that colonoscopy can wait as long as his hemoglobin remains stable until patient is optimized from a cardiac standpoint given his recent inferior wall myocardial infarction and stent placement. Recommend testing stools for Helicobacter pylori antigen as well. We will tentatively place patient for upper endoscopy either for tomorrow or Saturday. Would continue acid suppressing drugs, proton pump inhibitor 40 mg which he is currently taking at 40 mg twice daily. Additional inpatient medications include insulin, Lopressor, and sulbactam, potassium supplements, Plavix, atorvastatin. He has no known drug allergies. Further recommendations to follow. His liver tests on admission were satisfactory. Total bilirubin 1.0, direct 0.2, ALT 32, AST 15, alkaline phosphatase is slightly elevated at 123. We will follow with you. If you have any questions, please do not hesitate to contact our service. Thank you for allowing us to participate in this pleasant gentleman's care. SABRINA
[2016-08-30 07:26] VITALS: BP 118/65; PULSE 64; TEMP 36.5; O2SAT 96
[2016-08-30] MEDS: ASPIRIN 81 MG ECTAB PO SCH (07:40)
[2016-08-30] MEDS: CLOPIDOGREL BISULFATE 75 MG TAB PO SCH (07:40)
[2016-08-30] MEDS: PANTOprazole SOD 40 MG TAB PO SCH ×2 (07:40→20:15)
[2016-08-30] MEDS: METOPROLOL TARTRATE 50 MG TAB PO SCH ×2 (07:40→20:14)
[2016-08-30] MEDS: ATORVASTATIN 40 MG TAB PO SCH (07:40)
[2016-08-30] MEDS: LISINOPRIL 5 MG TAB PO SCH (07:40)
--- NOTE | 2016-08-30 09:22 | Family Medicine Progress Note ---
Progress Note Date of Service Aug 30, 2016. Subjective Pt evaluation today including: conversation w/ patient, physical exam, chart review, lab review 55 y/o M with no significant PMH presented with c/o nausea, vomiting and diarrhea which started 4 days OUTFITTER CABIN . On arrival he was found to be in Afib with RVR and had EKG changes indicating a inferior MD. He underwent a cardiac cath and had two stents placed in RCA. He was also found to be in DKA and was started on a DKA protocol and currently transitioned to SQ insulin 70/30. Doing well. states he feels better. Denies any chest pain, shortness of breath, palpitations. He mentioned that he had one episode of nasal bleed when he blew his nose today . Denies any more dark stools , states they are more brown now. Constitutional: No chills, No fever Eyes: No worsening of vision ENT: No hearing loss Respiratory: No cough, No shortness of breath, No sputum, No wheezing Cardiovascular: No chest pain, No palpitations Abdomen: No diarrhea, No nausea, No pain, No vomiting Musculoskeletal: No joint pain Male : No dysuria Psychiatric: No depression symptoms Skin: No rash Medications Current Inpatient Medications Medications (Trade) Dose Ordered Sig/Raymond Route Start Time Stop Time Status Last Admin Dose Admin Aspirin (Ecotrin Tab) 81 mg QAM PO 08/27/16 09:00 09/26/16 08:59 08/30/16 07:40 81 MG Clopidogrel Bisulfate (plAVix TAB) 75 mg QAM PO 08/27/16 09:00 09/26/16 08:59 08/30/16 07:40 75 MG Atorvastatin Calcium (Lipitor Tab) 80 mg QAM PO 08/27/16 09:00 09/26/16 08:59 08/30/16 07:40 80 MG Lisinopril (Zestril Tab) 5 mg QAM PO 08/27/16 09:00 09/26/16 08:59 08/30/16 07:40 5 MG Acetaminophen (Tylenol Tab) 650 mg Q4H PRN PO 08/26/16 22:00 09/25/16 21:59 Ondansetron HCl (Zofran Inj) 4 mg Q6H PRN IV 08/26/16 22:45 09/25/16 22:44 08/27/16 06:08 4 MG Glucose (Glucose 40% Gel) UD PRN PO 08/26/16 23:30 09/25/16 23:29 Glucose (Glucose Chew Tab) 1 tabs UD PRN PO 08/26/16 23:30 09/25/16 23:29 Dextrose (Dextrose 50% 50ML Syringe) 50 ml UD PRN IV 08/26/16 23:30 09/25/16 23:29 Glucagon (Glucagon Inj) 1 mg UD PRN SQ 08/26/16 23:30 09/25/16 23:29 Miscellaneous Information (Consult Glycemic Management Pharmacy) 1 ea UD PRN N/A 08/26/16 23:45 09/25/16 23:44 Insulin Aspart SLIDING SCALE ACHS SC 08/27/16 16:00 09/26/16 15:59 08/28/16 21:38 3 UNITS Potassium Chloride/Sodium Chloride (Nss + 20meq KCl 1000ml) 1,000 ml @ 75 mls/hr [id number] IV 08/27/16 15:00 08/29/16 07:00 75 MLS/HR Metoprolol Tartrate 50 mg 50 mg BID PO 08/28/16 21:00 09/27/16 20:59 08/30/16 07:40 50 MG Ampicillin Sodium/ Sulbactam Sodium/ Sodium Chloride (Unasyn Inj/Nss 100ml) 104 ml @ 200 mls/hr Q6H IV 08/28/16 11:00 09/07/16 10:59 08/30/16 04:32 200 MLS/HR Insulin Human Isoph/Insulin Regular (novoLIN 70/30 REGULAR) 24 units DAILY@0730 SC 08/29/16 07:30 09/28/16 07:29 Future Hold 08/29/16 08:02 24 UNITS Insulin Human Isoph/Insulin Regular (novoLIN 70/30 REGULAR) 12 units DAILY@1645 SC 08/29/16 16:45 09/28/16 16:44 Pantoprazole Sodium (Protonix Tab) 40 mg BID PO 08/29/16 21:00 09/28/16 20:59 08/29/16 20:32 40 MG Objective Vital Signs Date Time Temp Pulse Resp B/P Pulse Ox O2 Delivery O2 Flow Rate FiO2 08/30/16 08:00 Room Air 08/30/16 07:26 36.5 64 16 118/65 96 Room Air 08/30/16 04:03 Room Air 08/30/16 03:13 36.7 60 22 106/68 100 Room Air 08/30/16 00:00 Room Air 08/29/16 23:46 36.5 63 18 104/63 97 Room Air 08/29/16 20:05 36.9 64 16 102/65 97 Room Air 08/29/16 20:00 Room Air 08/29/16 16:07 36.6 64 18 109/67 96 Room Air 08/29/16 16:00 Room Air 08/29/16 12:00 Room Air 08/29/16 10:45 36.8 70 16 90/56 97 Room Air Physical Exam General Appearance: WD/WN, no apparent distress Eyes: normal inspection ENT: normal ENT inspection, hearing grossly normal, + pertinent finding (left- sided jaw swelling improved) Neck: supple Respiratory/Chest: chest non-tender, lungs clear, normal breath sounds, no respiratory distress, no accessory muscle use Cardiovascular: regular rate, rhythm Abdomen: normal bowel sounds, non tender, soft Extremities: normal range of motion Neurologic/Psychiatric: alert, normal mood/affect, oriented x 3 Laboratory Results Test 08/30/16 05:17 08/30/16 07:14 08/30/16 07:40 08/30/16 09:01 Venous Blood pH 7.47 (7.36-7.41) Bedside Glucose 79 mg/dl (70-99) Assessment and Plan 55 y/o M with no significant PMH presented with c/o nausea, vomiting and diarrhea which started 4 days OUTFITTER CABIN . On arrival he was found to be in Afib with RVR and had EKG changes indicating a inferior MD. He underwent a cardiac cath and had two stents placed in RCA. He was also found to be in DKA and was started on a DKA protocol and currently transitioned to SQ insulin. GI bleeding: Likely secondary to AC ( aspirin/plavix/eliquis) - eliquis has been stopped. He will need to continue aspirin and Plavix considering stent placement - Black stools tested positive for Hemoccult - Hemoglobin had dropped from 18.7 on admission to 14, currently at 12.6( it is likely this is dilutional considering fluid infusion) - Hemoglobin this morning was 11.5 - Started on Protonix 40 mg twice a day - GI consult - EGD planned for today - H.Pylori pending - Continue to monitor Left sided parotitis: - Soft tissue US: Echogenic and edematous left parotid gland which favors a parotitis. There are few prominent lymph nodes within or adjacent to the parotid gland which are likely reactive. - Started on IV Unasyn because of concerns of loss of follow up and considering poor dental hygiene - will need to follow up with dental/ENT as an OP Acute inferior STEMI s/p 2 drug eluting stents in RCA - Continue dual antiplatelet therapy - Metoprolol increased to 50 mg BID - Lisinopril currently held due to low BP and statin added Atrial fibrillation with RVR: Converted to sinus rhythm Continues to be in sinus - [id number] score of 2 - Metoprolol increased to 50 mg BID per cardiology - After discussion with cardiology and the patient , eliquis has been stopped DKA with newly diagnosed DM - Hba1c at 12.9 - managed per protocol - glycemic control per pharmacy - currently on 70/30 Hypophosphatemia: - Phos at 1.7 - 15 mEQ Kphos added Full code DVT prophylaxis: Heparin SQ Monitor in tele Discharge planning: home Reviewed: Pt Seen/Exam by Me History Pt is feeling improved today. Bowel movement was not as dark. Abd pain has decreased. Pt is hungry. Pt states he does not wish to undergo EGD at this time given potential risks given that he feels fine and is not "bleeding emergently". He is aware of the risks of holding procedure and feels he would like to see how his numbers look before taking the risk of having the procedure while on aspirin/plavix. No chest pain, SOB, n/v. Agree with HPI/ROS as noted. General Appearance: WD/WN, no apparent distress Respiratory: normal breath sounds, no respiratory distress Cardiovascular: normal peripheral pulses, regular rate, rhythm Gastrointestinal: non tender, soft Extremities: non-tender, no pedal edema Neurologic/Psychiatric: alert, oriented x 3 Skin Characteristics: normal color, warm/dry Assessment/Plan Resident Physician Supervision Note: I discussed the case with the resident and agree with the findings and plan as documented in the note. Any exceptions or clarifications are listed here: Documented By: Carmen De Oliveira Agree with plan as outlined above New dx DM, afib with RVR BS improving, A1c 12.3, will need insulin on d/c, pharmacy is working with pt education also STEMI being managed by cardiology, planning for triple therapy x1 month however eliquis now on hold due to likely upper GIB GI was planning for EGD today, but pt has decided against this due to risks Aspirin/plavix to be maintained per cardiology due to new stent Hb this after noon is somewhat decreased with increased IVF, pt prefers to monitor and determine EGD status if ongoing issues Parotitis noted on US, pt is uncertain when swelling started as he was not the one to note it to resident, unasyn given poor dentition
[2016-08-30 10:51] LABS: HEMATOCRIT 31.5 % (42-52); MEAN CELL VOLUME 79.5 fL (80-100); MEAN CORPUSCULAR HGB CONC 36.5 g/dl (32-36); MEAN PLATELET VOLUME 9.7 fL (7.4-10.4); PLATELET COUNT 181 K/uL (130-400); RED BLOOD COUNT 3.96 M/uL (4.7-6.1); WHITE BLOOD COUNT 8.62 K/uL (4.8-10.8)
[2016-08-30 11:18] LABS: BUN/CREATININE RATIO 21.4 (10-20); CALCIUM 7.6 mg/dl (8.5-10.1); CREATININE 0.62 mg/dl (0.60-1.40); POTASSIUM 4.2 mmol/L (3.5-5.1)
--- NOTE | 2016-08-30 11:25 | Pharmacy Progress Note ---
Glycemic Control: Progress Nt Date of Service Aug 30, 2016. Scope Glycemic Pharmacist consulted by Dr Crandall on 08/27/16 for glycemic control and to write orders per [facility] inpatient glycemic control protocol. Objective Accuchecks BSG (last 24hrs): Test 08/29/16 16:12 08/29/16 20:16 08/30/16 07:14 08/30/16 10:37 Bedside Glucose 86 mg/dl (70-99) 95 mg/dl (70-99) 79 mg/dl (70-99) Test 08/30/16 10:52 Bedside Glucose 92 mg/dl (70-99) Laboratory Data (last 24hrs) Test 08/30/16 10:37 White Blood Count 8.62 K/uL HbA1c: Test 08/26/16 18:08 Hemoglobin A1c 12.3 % (4.5-5.6) H Recent Pertinent Medications Outpatient Anti-diabetic Regimen: * no prior hx or dx of DM * A1c = 12.3 % 08/27/16 The patient is currently receiving: * Basal/Prandial insulin : Novolin 70/30 24 units w/ breakfast + 12 units w/ dinner * Correctional Insulin: Novolog Correction per scale ACHS and 0000 + 0400 Goal Range: Low 120 mg/dL - High 160 mg/dL Correction Factor: 25 mg/dL/unit * Oral Agents: None currently Risk Factors for Insulin Resistance: * Infection: Unasyn for parotiditis * Recent Surgery: POD # 4 s/p cardiac cath w/ stenting of RCA; to have EGD done today * Diet: NPO for today's EGD Assessment & Plan ASSESSMENT: 08/27/16 (per prior note) * 55 yo M admitted with DKA, new onset diabetes, initiated on insulin drip per severe stress protocol * On admission, BSGs found to be near 500 mg/dL * 10 units of Regular insulin IV X 1 given in the ED * Insulin drip then initiated and patient transferred to ICU * A1c of 12.3% indicative of new onset diabetes/poor glycemic control * Per PRP @1200 today, patient meets criteria to be transitioned off insulin drip Criteria: 1. Serum glucose below 200 mg/dL (DKA) or 250 to 300 mg/dL (HHS) 2. Serum anion gap <12 meq/L 3. Serum bicarbonate =15 meq/L 4. Venous pH >7.30 * My plan will be to change goal range on insulin drip to ICU goal range for easier transition and give Lantus now * I will base basal/bolus regimen on a stress of 2, if sustained hyperglycemia, then a stress of 3 will be used * Drip rates have been steady at 3.2 units/hr but this is taking into consideration dextrose in fluids and I do not feel comfortable starting > stress of 3 in newly diagnosed diabetic * Spoke with provider, patient is eating and gap closed. Remove dextrose from fluids to further aid in glycemic control * ADA & AACE recommend a goal blood sugar range 140-180 mg/dl for the majority of critically ill & non-critically ill patients. However, more stringent targets may be selected in individual cases. 08/28/16 * Patient was successfully transitioned off insulin drip yesterday evening * BSGs have ranged 154-192 since transitioned off the drip; acceptable for first 24 hrs off drip * AG mildly elevated this AM (AG = 12); Bicarb unchanged since yesterday ( Bicarb = 17) * No PO intake noted yet per carb counts in nursing documentation, thus current BSGs are fasting BSGs * He is currently ordered a Lantus sliding scale, with 3 possible doses. Would prefer to simplify Lantus order and base dose upon anticipated daily insulin requirement of ~0.6-0.7units/kg/day. 08/29/16 * Glycemic control continues to improve * Fasting BSG down to 108-113 this AM w/ 30 units of basal insulin on board * Appetite has been poor, patient c/o bloating and upset stomach which he blames on new medications. * account services associate had contacted me yesterday and informed me that this patient has high [id number] medication expenses due to high deductible. DE had recommended transitioning patient to Novolin 70/30 insulin for cost saving purposes and ease of use for newly diagnosed diabetic in whom compliance may be an issue * Over the last 24 hours he has received 40 units of SQ insulin with poor dietary intake. Given ongoing GI complaints and need to transition to 70/30 today - which has a much higher risk of hypoglycemia, will base new total daily insulin dose upon a need of ~36 units/day with current dietary habits. Will administer 2/3 in AM w/ breakfast and 1/3 in PM with dinner. * Encouraged patient to try to eat 3 meals today and stressed importance of eating 3 meals consistently while on 70/30 insulin at home. * This patient does not have a PCP - recommend he have an appt w/ PCP within a few 7 days of discharge to help with diabetic management, insulin adjustments. * Will attempt to review insulin administration technique, dietary compliance, s /s hyper- and hypoglycemia and sick-day guidelines, and glycemic goals. 08/30/16 * BSGs are consistently running less than 100 over the last 24 hours, BSGs have ranged 79-92 * PO intake has been poor for this patient given GI symptoms however he did eat his breakfast and lunch yesterday * We held his evening dose of 70/30 insulin secondary to BSG of 86 pre-dinner and upcoming NPO status after midnight * Fasting BSG down to 79 this AM, should have minimal insulin on board this AM given timing of last 70/30 dose (breakfast yesterday) * Will resume 70/30 insulin when BSGs > 140, continue to hold at this time. Will resume at a reduced dose. * Attempts to educate this patient have been met with resistance. Pt wants present for education however has not been present during my visits and I have not received a phone call from RN when the arrives. Nursing has been trying to work with the patient and educate on pertinent diabetes topics. PLAN FOR INPATIENT GLYCEMIC CONTROL: * Place 70/30 insulin on hold - resume when BSG > 140 * Reduce Novolin 70/30 insulin 16 units w/ breakfast + 8 units with dinner * Continuing correction factor of 25 mg/dl/unit * No carb ratio required when 70/30 insulin used * Continuing goal range of Low 120 mg/dL - High 160 mg/dL RECOMMENDATIONS FOR DISCHARGE: * BSG testing 4 x daily, ACHS would be ideal initially. However I suspect this patient may not be willing to test this frequently. At a minimum he should be testing twice daily (fasting AM and prior to evening 70/30 injection) * Novolin 70/30 insulin, inject 16 units with breakfast + 8 units with dinner * F/U with PCP / endocrinology within 7 days of discharge * Keep a log of BSG results for f/u appt * Stress the need to eat 3 meals per day, avoid skipping meals when using this insulin formulation * Please note that the plan above was derived based on current level of insulin resistance and hospital stress. These recommendations are appropriate for inpatient admission only. Plan of care upon discharge will need to be reassessed to avoid potential outpatient hypo/hyperglycemia. Thank you.
--- NOTE | 2016-08-30 11:27 | Cardiology Follow-Up ---
Subjective Subjective Date of Service: Aug 30, 2016. Pt evaluation today including: conversation w/ patient, physical exam, chart review, lab review, review of studies, review of inpatient medication list Additional Details: Feeling well. No chest pain, shortness of breath, palpitations. 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 Problem List Medical Problems: (1) Atrial fibrillation with RVR Status: Acute (2) DKA (diabetic ketoacidoses) Status: Acute (3) ST elevation [place] (STEMI) Status: Acute (4) ST elevation myocardial infarction (STEMI) of inferior wall Status: Acute Review of Systems Constitutional: No chills, No fever ENT: No hearing loss Respiratory: No cough, No shortness of breath Cardiac: No chest pain, No palpitations Abdomen: + GI bleeding, No diarrhea, No nausea, No pain, No vomiting Psychiatric: No depression symptoms Heme: + abnormal bleeding/bruising Skin: No rash Objective Vital Signs Last Vital Signs Documentation Date Time Temp Pulse Resp B/P Pulse Ox O2 Delivery O2 Flow Rate FiO2 08/30/16 08:00 Room Air 08/30/16 07:26 36.5 64 16 118/65 96 08/26/16 18:50 3.0 Physical Exam: General Appearance: no apparent distress ENT: hearing grossly normal, + pertinent finding (left-sided jaw swelling improved) Neck: supple Respiratory/Chest: lungs clear, normal breath sounds, no respiratory distress Cardiovascular: regular rate, rhythm, no murmur Abdomen: normal bowel sounds, non tender, soft Extremities: no pedal edema, no calf tenderness Neurologic/Psychiatric: alert, normal mood/affect, oriented x 3 Skin: normal color Assessment and Plan 1. Inferior STEMI s/p PPCI with MARILYN x2 to proximal to mid RCA -- stable post procedure 2. DKA/newly diagnosed diabetes -- blood sugars well controlled 3. AF + RVR - in sinus rhythm 4. ION -- resolved 5. Parotitis -- improved on IV abx 6. ? GI bleed -- Hb downtrending slowly 7. Accelerated junctional rhythm -- sinus rhythm today. Remains chest pain free, hemodynamically stable. LV function preserved on echo with only mild inferior/RV hypokinesis. Junctional rhythm on ECG -- appears to be in sinus rhythm today on telemetry. Electrolytes improved 1 dark BM yesterday, Hb drop slowing -- Continue ASA/plavix -- Continue current metoprol 50 mg BID. TATIANNA as BP allows -- high dose statin -- Continue to hold anticoagulation -- further discussion of risk/benefits as an outpatient pending GI evaluation -- From a cardiac standpoint feel patient's risk for adverse cardiac events with EGD is acceptable to proceed if OK from GI/Anesthesia standpoint. -- When ready for discharge, can follow-up with me in 2-3 weeks with plan for cardiac rehab. Continued [facility] stay due to: abnormal vital signs Discharge planning: home Medications: Current Inpatient Medications Medications (Trade) Dose Ordered Sig/Raymond Route Start Time Stop Time Status Last Admin Dose Admin Aspirin (Ecotrin Tab) 81 mg QAM PO 08/27/16 09:00 09/26/16 08:59 08/30/16 07:40 81 MG Clopidogrel Bisulfate (plAVix TAB) 75 mg QAM PO 08/27/16 09:00 09/26/16 08:59 08/30/16 07:40 75 MG Atorvastatin Calcium (Lipitor Tab) 80 mg QAM PO 08/27/16 09:00 09/26/16 08:59 08/30/16 07:40 80 MG Lisinopril (Zestril Tab) 5 mg QAM PO 08/27/16 09:00 09/26/16 08:59 08/30/16 07:40 5 MG Acetaminophen (Tylenol Tab) 650 mg Q4H PRN PO 08/26/16 22:00 09/25/16 21:59 Ondansetron HCl (Zofran Inj) 4 mg Q6H PRN IV 08/26/16 22:45 09/25/16 22:44 08/27/16 06:08 4 MG Glucose (Glucose 40% Gel) UD PRN PO 08/26/16 23:30 09/25/16 23:29 Glucose (Glucose Chew Tab) 1 tabs UD PRN PO 08/26/16 23:30 09/25/16 23:29 Dextrose (Dextrose 50% 50ML Syringe) 50 ml UD PRN IV 08/26/16 23:30 09/25/16 23:29 Glucagon (Glucagon Inj) 1 mg UD PRN SQ 08/26/16 23:30 09/25/16 23:29 Miscellaneous Information (Consult Glycemic Management Pharmacy) 1 ea UD PRN N/A 08/26/16 23:45 09/25/16 23:44 Insulin Aspart SLIDING SCALE ACHS SC 08/27/16 16:00 09/26/16 15:59 08/28/16 21:38 3 UNITS Potassium Chloride/Sodium Chloride (Nss + 20meq KCl 1000ml) 1,000 ml @ 75 mls/hr [id number] IV 08/27/16 15:00 08/29/16 07:00 75 MLS/HR Metoprolol Tartrate 50 mg 50 mg BID PO 08/28/16 21:00 09/27/16 20:59 08/30/16 07:40 50 MG Ampicillin Sodium/ Sulbactam Sodium/ Sodium Chloride (Unasyn Inj/Nss 100ml) 104 ml @ 200 mls/hr Q6H IV 08/28/16 11:00 09/07/16 10:59 08/30/16 11:06 200 MLS/HR Insulin Human Isoph/Insulin Regular (novoLIN 70/30 REGULAR) 24 units DAILY@0730 [place] 08/29/16 07:30 09/28/16 07:29 Future Hold 08/29/16 08:02 24 UNITS Insulin Human Isoph/Insulin Regular (novoLIN 70/30 REGULAR) 12 units DAILY@1645 [place] 08/29/16 16:45 09/28/16 16:44 Future Hold Pantoprazole Sodium (Protonix Tab) 40 mg BID PO 08/29/16 21:00 09/28/16 20:59 08/29/16 20:32 40 MG Lab Results: 08/30/16 10:37 08/30/16 10:37 Test 08/30/16 00:00 08/30/16 05:17 08/30/16 10:37 08/30/16 10:52 Venous Blood pH 7.47 (7.36-7.41) Red Blood Count 3.96 M/uL (4.7-6.1) Mean Corpuscular Volume 79.5 fL (80-100) Mean Corpuscular Hemoglobin 29.0 pg (25-34) Mean Corpuscular Hemoglobin Concent 36.5 g/dl (32-36) RDW Standard Deviation 39.0 fL (36.4-46.3) RDW Coefficient of Variation 13.6 % (11.5-14.5) Mean Platelet Volume 9.7 fL (7.4-10.4) Anion Gap 7.0 mmol/L (3-11) Est Creatinine Clear Calc Drug Dose 162.7 ml/min Estimated GFR () 130.3 Estimated GFR (Non- 112.5 BUN/Creatinine Ratio 21.4 (10-20) Calcium Level 7.6 mg/dl (8.5-10.1) Bedside Glucose 92 mg/dl (70-99)
[2016-08-30 11:58] VITALS: BP 123/73; PULSE 63; TEMP 36.6; O2SAT 97
[2016-08-30 12:13] VITALS: BMI 30.2
[2016-08-30 15:36] VITALS: BP 129/66; PULSE 69; TEMP 36.7; O2SAT 98
[2016-08-30] MEDS ORDERED: INSULIN HUMAN 70% NPH/30% REGULAR SC SCH (16:45)
[2016-08-30] MEDS: NSS + 20MEQ KCL 1000ML 1,000 ML IV SCH ×2 (18:10→22:37)
--- NOTE | 2016-08-30 18:12 | PROGRESS NOTE ---
DATE: 08/30/2016 GASTROENTEROLOGY PROGRESS NOTE INPATIENT SUBJECTIVE: The patient is clinically doing well from a cardiac standpoint. There are no acute symptoms. His blood sugar is also increasingly under better control and he is receiving antibiotics for an oral infection. Regarding his hemoglobin, this has drifted slowly downward. LABORATORY STUDIES: Show hemoglobin is currently 11.5 today, white count is normal, and platelets are 181,000. PHYSICAL EXAMINATION: Unremarkable and unchanged. VITAL SIGNS: On today's visit, the patient is afebrile at 36.7, blood pressure 129/66, respirations 18, pulse 60, and sats 99% on room air. IMPRESSION AND PLAN: I spoke with the patient several minutes regarding the current plan. The patient was tentatively scheduled for EGD today, but his diet was advanced. There are no reports of significant melena or bright red blood per rectum. The current plan is that if his hemoglobin tomorrow is stable or improved or not significantly lower than the current value, then discharge planning will be pursued with outpatient upper endoscopy and colonoscopy in approximately 3-4 weeks surely after his return visit with Dr. Reed in cardiology. If, however, there is a significant hemoglobin decrease, then upper endoscopy tomorrow will be planned. I will tentatively place the patient for endoscopy tomorrow, but this may change. Also, n.p.o. after midnight except meds. All questions answered. Would continue PPI therapy and check H. pylori status if this has not already been obtained by stool antigen, which is currently pending according to the EMR. All questions answered.
[2016-08-30 19:55] VITALS: BP 131/63; PULSE 76; TEMP 36.8; O2SAT 99
[2016-08-30 23:20] VITALS: BP 99/61; PULSE 64; TEMP 36.7; O2SAT 96
[2016-08-31 04:05] VITALS: BP 121/68; PULSE 65; TEMP 36.9; O2SAT 98
[2016-08-31] MEDS: AMPICILLIN/SULBACTAM SOD INJ 1,500 MG in SODIUM CHLORIDE 0.9% 100ML 100 ML IV SCH ×2 (05:58→11:39)
[2016-08-31] MEDS ORDERED: INSULIN HUMAN 70% NPH/30% REGULAR SC SCH ×2 (07:30→08:00)
[2016-08-31] MEDS: INSULIN ASPART 100 UNITS/ML 3 ML PEN SC SCH ×2 (07:39→11:41)
[2016-08-31 07:44] LABS: HEMATOCRIT 33.5 % (42-52); MEAN CELL VOLUME 80.5 fL (80-100); MEAN CORPUSCULAR HEMOGLOBIN 28.8 pg (25-34); MEAN CORPUSCULAR HGB CONC 35.8 g/dl (32-36); MEAN PLATELET VOLUME 9.5 fL (7.4-10.4); PLATELET COUNT 225 K/uL (130-400); RED BLOOD COUNT 4.16 M/uL (4.7-6.1); WHITE BLOOD COUNT 7.83 K/uL (4.8-10.8)
[2016-08-31 07:54] VITALS: BP 124/63; PULSE 65; TEMP 36.8; O2SAT 96
[2016-08-31] MEDS: CLOPIDOGREL BISULFATE 75 MG TAB PO SCH (08:00)
[2016-08-31] MEDS: ATORVASTATIN 40 MG TAB PO SCH (08:00)
[2016-08-31] MEDS: ASPIRIN 81 MG ECTAB PO SCH (08:00)
[2016-08-31] MEDS: LISINOPRIL 5 MG TAB PO SCH (08:01)
[2016-08-31] MEDS: PANTOprazole SOD 40 MG TAB PO SCH (08:01)
[2016-08-31] MEDS: METOPROLOL TARTRATE 50 MG TAB PO SCH (08:01)
[2016-08-31 08:20] LABS: BUN/CREATININE RATIO 13.7 (10-20); CALCIUM 7.9 mg/dl (8.5-10.1); CREATININE 0.65 mg/dl (0.60-1.40); POTASSIUM 3.7 mmol/L (3.5-5.1)
[2016-08-31 11:06] VITALS: BP 120/68; PULSE 68; TEMP 36.6; O2SAT 97
--- NOTE | 2016-08-31 12:16 | Pharmacy Progress Note ---
Glycemic Control: Progress Nt Date of Service Aug 31, 2016. Scope Glycemic Pharmacist consulted by Dr Crandall on 08/26/16 for glycemic control and to write orders per [facility] inpatient glycemic control protocol. Objective Accuchecks BSG (last 24hrs): Test 08/30/16 16:20 08/30/16 20:32 08/31/16 06:45 08/31/16 07:05 Bedside Glucose 132 mg/dl (70-99) 162 mg/dl (70-99) 138 mg/dl (70-99) Random Glucose 144 mg/dl (70-99) Test 08/31/16 10:53 Bedside Glucose 189 mg/dl (70-99) Laboratory Data (last 24hrs) Test 08/31/16 07:05 Anion Gap 11.0 mmol/L BUN/Creatinine Ratio 13.7 Blood Urea Nitrogen 9 mg/dl Creatinine 0.65 mg/dl Potassium Level 3.7 mmol/L Sodium Level 140 mmol/L White Blood Count 7.83 K/uL HbA1c: Test 08/26/16 18:08 Hemoglobin A1c 12.3 % (4.5-5.6) H Recent Pertinent Medications Outpatient Anti-diabetic Regimen: * no prior hx or dx of DM * A1c = 12.3 % 08/27/16 The patient is currently receiving: * Basal/Prandial insulin : Novolin 70/30 16 units w/ breakfast + 8 units w/ dinner - hold doses if BSG less than 140 or not eating * Correctional Insulin: Novolog Correction per scale ACHS Goal Range: Low 120 mg/dL - High 160 mg/dL Correction Factor: 25 mg/dL/unit * Oral Agents: None currently Risk Factors for Insulin Resistance: * Infection: Unasyn for parotiditis * Recent Surgery: POD # 5 s/p cardiac cath w/ stenting of RCA; to have EGD done today * Diet: T2DM / Full Liq diet; PO intake remains poor Assessment & Plan ASSESSMENT: 08/27/16 (per prior note) * 55 yo M admitted with DKA, new onset diabetes, initiated on insulin drip per severe stress protocol * On admission, BSGs found to be near 500 mg/dL * 10 units of Regular insulin IV X 1 given in the ED * Insulin drip then initiated and patient transferred to ICU * A1c of 12.3% indicative of new onset diabetes/poor glycemic control * Per PRP @1200 today, patient meets criteria to be transitioned off insulin drip Criteria: 1. Serum glucose below 200 mg/dL (DKA) or 250 to 300 mg/dL (HHS) 2. Serum anion gap <12 meq/L 3. Serum bicarbonate =15 meq/L 4. Venous pH >7.30 * My plan will be to change goal range on insulin drip to ICU goal range for easier transition and give Lantus now * I will base basal/bolus regimen on a stress of 2, if sustained hyperglycemia, then a stress of 3 will be used * Drip rates have been steady at 3.2 units/hr but this is taking into consideration dextrose in fluids and I do not feel comfortable starting > stress of 3 in newly diagnosed diabetic * Spoke with provider, patient is eating and gap closed. Remove dextrose from fluids to further aid in glycemic control * ADA & AACE recommend a goal blood sugar range 140-180 mg/dl for the majority of critically ill & non-critically ill patients. However, more stringent targets may be selected in individual cases. 08/28/16 * Patient was successfully transitioned off insulin drip yesterday evening * BSGs have ranged 154-192 since transitioned off the drip; acceptable for first 24 hrs off drip * AG mildly elevated this AM (AG = 12); Bicarb unchanged since yesterday ( Bicarb = 17) * No PO intake noted yet per carb counts in nursing documentation, thus current BSGs are fasting BSGs * He is currently ordered a Lantus sliding scale, with 3 possible doses. Would prefer to simplify Lantus order and base dose upon anticipated daily insulin requirement of ~0.6-0.7units/kg/day. 08/29/16 * Glycemic control continues to improve * Fasting BSG down to 108-113 this AM w/ 30 units of basal insulin on board * Appetite has been poor, patient c/o bloating and upset stomach which he blames on new medications. * clinical nurse educator had contacted me yesterday and informed me that this patient has high [id number] medication expenses due to high deductible. DE had recommended transitioning patient to Novolin 70/30 insulin for cost saving purposes and ease of use for newly diagnosed diabetic in whom compliance may be an issue * Over the last 24 hours he has received 40 units of SQ insulin with poor dietary intake. Given ongoing GI complaints and need to transition to 70/30 today - which has a much higher risk of hypoglycemia, will base new total daily insulin dose upon a need of ~36 units/day with current dietary habits. Will administer 2/3 in AM w/ breakfast and 1/3 in PM with dinner. * Encouraged patient to try to eat 3 meals today and stressed importance of eating 3 meals consistently while on 70/30 insulin at home. * This patient does not have a PCP - recommend he have an appt w/ PCP within a few 7 days of discharge to help with diabetic management, insulin adjustments. * Will attempt to review insulin administration technique, dietary compliance, s /s hyper- and hypoglycemia and sick-day guidelines, and glycemic goals. 08/30/16 * BSGs are consistently running less than 100 over the last 24 hours, BSGs have ranged 79-92 * PO intake has been poor for this patient given GI symptoms however he did eat his breakfast and lunch yesterday * We held his evening dose of 70/30 insulin secondary to BSG of 86 pre-dinner and upcoming NPO status after midnight * Fasting BSG down to 79 this AM, should have minimal insulin on board this AM given timing of last 70/30 dose (breakfast yesterday) * Will resume 70/30 insulin when BSGs > 140, continue to hold at this time. Will resume at a reduced dose. * Attempts to educate this patient have been met with resistance. Pt wants present for education however has not been present during my visits and I have not received a phone call from RN when the arrives. Nursing has been trying to work with the patient and educate on pertinent diabetes topics. 08/31/16 * 70/30 insulin doses were held yesterday due to NPO status in the AM and poor PO intake, along with BSGs the 1st half of the day less than 100 * This AM his fasting BSG is up to 138-144 with no basal insulin on board * Planned to give 70/30 16 units this AM w/ breakfast however this dose was not administered, pt may have refused dose * BSG before lunch now up to 189, again with no insulin in the last 24 hours. I suspect glycemic control will continue to deteriorate w/o insulin or oral hypoglycemic agents given presentation was DKA and A1c 12.3 * Plan for discharge has been complicated by costs associated with diabetic meds. Patient has high deductible. Diabetes educators felt pt may be a candidate for PO hypoglycemics on discharge - however options would be limited to metformin (risk of worsened diarrhea, nausea, vomiting) and/or sulfonylurea, or we could use once daily 70/30 Novolin in the AM initially and let PCP determine next step in management at f/u visit in 1 week. PLAN FOR INPATIENT GLYCEMIC CONTROL: * Reduce Novolin 70/30 insulin 10 units w/ breakfast only * Continuing correction factor of 25 mg/dl/unit * No carb ratio required when 70/30 insulin used * Continuing goal range of Low 120 mg/dL - High 160 mg/dL RECOMMENDATIONS FOR DISCHARGE: * BSG testing 4 x daily, ACHS would be ideal initially. However I suspect this patient may not be willing to test this frequently. At a minimum he should be testing twice daily (fasting AM and prior to evening 70/30 injection) * Discharge options: * Novolin 70/30 insulin, inject 10 units with breakfast only (monotherapy) * Metformin 500mg PO BID initially w/ possibility of worsening GI symptoms and potential risks for future DKA if pt is undiagnosed RANDI; again this may be a monotherapy option to start however given A1c would expect a second agent to be required * Other PO agents might be considered if cost not prohibitive: empagliflozin may especially be beneficial in this patient given recent STEMI - this patient would likely cost in excess of 500.00 per month if paying yanes but this is partial assistance available from the bulb [employer] up to 250.00 per month assistance. * F/U with PCP / endocrinology within 7 days of discharge * Keep a log of BSG results for f/u appt * Seek assistance for BSGs > 300 or less than 70 * Stress the need to eat 3 meals per day, avoid skipping meals when using this insulin formulation * Please note that the plan above was derived based on current level of insulin resistance and hospital stress. These recommendations are appropriate for inpatient admission only. Plan of care upon discharge will need to be reassessed to avoid potential outpatient hypo/hyperglycemia. Thank you.
--- NOTE | 2016-08-31 12:27 | Cardiology Follow-Up ---
Subjective Subjective Date of Service: Aug 31, 2016. Pt evaluation today including: conversation w/ patient, conversation w/ family , physical exam, chart review, lab review, review of studies, review of inpatient medication list Additional Details: Patient feeling well. No recurrent chest pain. No shortness of breath. No black bowel movements. States he is ready to go home. Telemetry reviewed -- no events. Problem List Medical Problems: (1) Atrial fibrillation with RVR Status: Acute (2) DKA (diabetic ketoacidoses) Status: Acute (3) ST elevation [place] (STEMI) Status: Acute (4) ST elevation myocardial infarction (STEMI) of inferior wall Status: Acute Review of Systems Constitutional: No fever Eyes: No worsening of vision Respiratory: No cough, No shortness of breath, No wheezing Cardiac: No chest pain, No edema, No palpitations Abdomen: No nausea, No pain Psychiatric: No depression symptoms Heme: No abnormal bleeding/bruising Skin: No rash Objective Vital Signs Last Vital Signs Documentation Date Time Temp Pulse Resp B/P Pulse Ox O2 Delivery O2 Flow Rate FiO2 08/31/16 11:06 36.6 68 18 120/68 97 08/31/16 07:50 Room Air 08/26/16 18:50 3.0 Physical Exam: General Appearance: no apparent distress ENT: hearing grossly normal, + pertinent finding (left-sided jaw swelling improved) Neck: supple Respiratory/Chest: lungs clear, normal breath sounds, no respiratory distress Cardiovascular: regular rate, rhythm, no murmur Abdomen: normal bowel sounds, non tender, soft Extremities: no pedal edema, no calf tenderness, + pertinent finding (right radial access site improved.) Neurologic/Psychiatric: alert, normal mood/affect, oriented x 3 Skin: normal color Assessment and Plan 1. Inferior STEMI s/p PPCI with MARILYN x2 to proximal to mid RCA -- stable post procedure 2. DKA/newly diagnosed diabetes -- blood sugars well controlled 3. AF + RVR - in sinus rhythm 4. ION -- resolved 5. Parotitis -- improved on abx 6. ? GI bleed -- Hb stable today 7. Accelerated junctional rhythm -- sinus rhythm today. Remains chest pain free, hemodynamically stable. LV function preserved on echo with only mild inferior/RV hypokinesis. Hgb stable this AM. No further dark BMs. -- Continue ASA/plavix -- Continue current metoprol 50 mg BID. TATIANNA as BP allows -- high dose statin -- Continue to hold anticoagulation -- further discussion of risk/benefits as an outpatient pending GI evaluation -- From a cardiac standpoint OK for discharge today. can follow-up with me in 2 -3 weeks with plan for cardiac rehab -- Regarding endoscopy - patient is intermediate risk for stroke with his Afib and risk factors. In that setting feel there is likely benefit long-term to starting on anticoagulation at some point. Question of GI bleed impacts starting on possible triple therapy. GI evaluation with endoscopy if needed would change short-term management. Feel from a hemodynamic and arrhythmia standpoint patient is relatively low risk to undergo procedure and could be safely done now or in near future as long as could be done on continued dual- antiplatelet therapy. Discussed with anesthesia. Discharge planning: home Medications: Current Inpatient Medications Medications (Trade) Dose Ordered Sig/Raymond Route Start Time Stop Time Status Last Admin Dose Admin Aspirin (Ecotrin Tab) 81 mg QAM PO 08/27/16 09:00 09/26/16 08:59 08/31/16 08:00 81 MG Clopidogrel Bisulfate (plAVix TAB) 75 mg QAM PO 08/27/16 09:00 09/26/16 08:59 08/31/16 08:00 75 MG Atorvastatin Calcium (Lipitor Tab) 80 mg QAM PO 08/27/16 09:00 09/26/16 08:59 08/31/16 08:00 80 MG Lisinopril (Zestril Tab) 5 mg QAM PO 08/27/16 09:00 09/26/16 08:59 08/31/16 08:01 5 MG Acetaminophen (Tylenol Tab) 650 mg Q4H PRN PO 08/26/16 22:00 09/25/16 21:59 Ondansetron HCl (Zofran Inj) 4 mg Q6H PRN IV 08/26/16 22:45 09/25/16 22:44 08/27/16 06:08 4 MG Glucose (Glucose 40% Gel) UD PRN PO 08/26/16 23:30 09/25/16 23:29 Glucose (Glucose Chew Tab) 1 tabs UD PRN PO 08/26/16 23:30 09/25/16 23:29 Dextrose (Dextrose 50% 50ML Syringe) 50 ml UD PRN IV 08/26/16 23:30 09/25/16 23:29 Glucagon (Glucagon Inj) 1 mg UD PRN SQ 08/26/16 23:30 09/25/16 23:29 Miscellaneous Information (Consult Glycemic Management Pharmacy) 1 ea UD PRN N/A 08/26/16 23:45 09/25/16 23:44 Insulin Aspart SLIDING SCALE ACHS SC 08/27/16 16:00 09/26/16 15:59 08/30/16 21:17 1 UNITS Potassium Chloride/Sodium Chloride (Nss + 20meq KCl 1000ml) 1,000 ml @ 75 mls/hr [id number] IV 08/27/16 15:00 08/30/16 18:10 75 MLS/HR Metoprolol Tartrate 50 mg 50 mg BID PO 08/28/16 21:00 09/27/16 20:59 08/31/16 08:01 50 MG Ampicillin Sodium/ Sulbactam Sodium/ Sodium Chloride (Unasyn Inj/Nss 100ml) 104 ml @ 200 mls/hr Q6H IV 08/28/16 11:00 09/07/16 10:59 08/31/16 11:39 200 MLS/HR Pantoprazole Sodium (Protonix Tab) 40 mg BID PO 08/29/16 21:00 09/28/16 20:59 08/31/16 08:01 40 MG Insulin Human Isoph/Insulin Regular (novoLIN 70/30 REGULAR) give 0 units if BSG l... DAILY@1645 [place] 08/30/16 16:45 09/29/16 16:44 Insulin Human Isoph/Insulin Regular (novoLIN 70/30 REGULAR) 16 units DAILY@0730 [place] 08/31/16 08:00 09/30/16 07:59 Lab Results: 08/31/16 07:05 08/31/16 07:05 Test 08/31/16 07:05 08/31/16 10:53 Red Blood Count 4.16 M/uL (4.7-6.1) Mean Corpuscular Volume 80.5 fL (80-100) Mean Corpuscular Hemoglobin 28.8 pg (25-34) Mean Corpuscular Hemoglobin Concent 35.8 g/dl (32-36) RDW Standard Deviation 39.6 fL (36.4-46.3) RDW Coefficient of Variation 13.6 % (11.5-14.5) Mean Platelet Volume 9.5 fL (7.4-10.4) Anion Gap 11.0 mmol/L (3-11) Est Creatinine Clear Calc Drug Dose 154.5 ml/min Estimated GFR () 127.8 Estimated GFR (Non- 110.3 BUN/Creatinine Ratio 13.7 (10-20) Calcium Level 7.9 mg/dl (8.5-10.1) Bedside Glucose 189 mg/dl (70-99)
--- NOTE | 2016-08-31 14:18 | Discharge Instructions ---
Discharge Instructions Date of Service Aug 31, 2016. Admission Reason for Admission: Atrial Fibrillation With Rvr, Dka Discharge Discharge Diagnosis / Problem: myocardial infarction, DKA, parotitis, GI bleed Discharge Goals Goal(s): Decrease discomfort, Improve function Activity Recommendations Activity Limitations: resume your previous activity . Instructions / Follow-Up Instructions / Follow-Up Please take the following medications: Acute myocardial infarction/heart attack - Continue using aspirin 81 mg daily and Plavix 75 mg daily - Continue Metoprolol 50 mg twice daily - Continue atorvastatin 40 mg once daily - Follow up with cardiology in 1-2 weeks. - You might be started on a new medication called lisinopril. Diabetes: - Please use metformin 500 mg twice daily and monitor your blood sugars . You might experience diarrhea and other gastro-intestinal side effects . In case your blood sugars are high or you develop any undesirable side effects like diarrhea , Please use insulin 70/30 10 units every morning and monitor blood sugars or call your doctor's office. - Please check blood sugars and keep a log 4 times a day- fasting, before meals , after meals and at bedtime - You will be given prescription for glucometer and test strips - Please follow-up with your primary care physician to manage diabetes - Avoid sugary drinks, eat more fresh vegetables and fruits Left sided parotitis: - Continue to use Augmentin twice daily - Please follow up with the dentist GI bleeding: - Please follow up with with Dr. Bonner for for upper endoscopy and colonoscopy in 3-4 weeks. - Continue to use Protonix 40 mg twice daily - Monitor for any black stool or bright red bleeding with bowel movement and please report to your primary care physician or report to the ER Home Care: * Take your medications exactly as directed. Don't skip doses. * Remember that recovery after a heart attack takes time. Plan to rest for at lease 4-8 weeks while you recover. Then return to normal activity when your doctor says it's okay. * Ask your doctor about joining a heart rehabilitation program. * Tell your doctor if you are feeling depressed. Feelings of sadness are common after a heart attack, but it is important that you speak to someone if you are feeling overwhelmed by these feelings. * If you are having chest pain, call 911 for an ambulance. Do NOT drive yourself to the hospital. * Ask your family members to learn CPR. * Learn to take your own blood pressure and pulse. Keep a record of your results. Ask your doctor when you should seek emergency medical attention. He or she will tell you which blood pressure reading is dangerous. Lifestyle Changes: * Maintain a healthy weight. Get help to lose any extra pounds. * Cut back on salt. * Limit canned, dried, packaged, and fast foods. * Don't add salt to your food. * Season foods with herbs instead of salt when you cook. * Break the smoking habit. Enroll in a stop-smoking program to improve your chances of success. * Limit fatty foods. * Check your lipid levels regularly. (Your doctor can show you how to do this.) * Build up your activity according to your doctor's recommendation. * Ask your doctor when it's okay to resume sexual activity. * Tell your doctor about any erectile dysfunction (ED) medication you are taking. Some ED medications are not safe if you take certain heart medications. * Try to manage stress. Follow Up: It is important for you to keep your follow up appointments with your medical provider. - Follow up with the PCP in 1 week - Follow up with cardiology in 1-2 weeks - Follow up with GI in 3-4 weeks - Follow up with dentist Current Hospital Diet Patient's current hospital diet: Diabetes Type 2 Diet Discharge Diet Recommended Diet: AHA Diet (Heart Healthy), Diabetes Type 2 Diet Procedures Procedures Performed: Cardiac catheterization with stent placement Pending Studies Studies pending at discharge: yes List of pending studies: H.pylori stool antigen Laboratory Results Hemoglobin A1c Test 08/26/16 18:08 Range/Units Estimated Average Glucose 306 mg/dl Hemoglobin A1c 12.3 H 4.5-5.6 % Medical Emergencies . Who to Call and When: Medical Emergencies: If at any time you feel your situation is an emergency, please call 911 immediately. Call 911 immediately or go to your nearest Emergency Room if you experience any of the following: Warning Signs and Symptoms of a Heart Attack * Chest pain that is not relieved by medication * Shortness of breath . Non-Emergent Contact Non-Emergency issues call your: Primary Care Provider . . "Provider Documentation" section prepared by Yari Lewis. AMI Core Measures Reason no ASA as I/P: Treatment provided - N/A Reason no ASA at D/C: Treatment provided - N/A Reason no statin as I/P: Treatment provided - N/A Reason no statin at D/C: Treatment provided - N/A VTE Core Measure Inpt VTE Proph given/why not?: SCD's, Contraindicated
[2016-08-31] MEDS ORDERED: METO50TA17 PO (14:21)
[2016-08-31] MEDS ORDERED: LPT40 PO (14:21)
[2016-08-31] MEDS ORDERED: ASPEC81 PO (14:21)
[2016-08-31] MEDS ORDERED: PRT40 PO (14:21)
[2016-08-31] MEDS ORDERED: PLV75 PO (14:21)
[2016-08-31] MEDS ORDERED: AMOX500T PO (14:23)
[2016-08-31] MEDS ORDERED: GLC/500 PO (14:47)
[2016-08-31 15:12] VITALS: BP 120/68; PULSE 68; TEMP 36.6; O2SAT 97
[2016-08-31 15:49] VITALS: Ht 180.3 cm; Wt 97.2 kg
--- NOTE | 2016-08-31 16:59 | Discharge Summary ---
Discharge Summary Date of Service Aug 31, 2016. (Yari Lewis MD) Discharge Summary Admission Date: Aug 26, 2016 at 21:47 Discharge Date: Aug 31, 2016 Discharge Disposition: Home Principal Diagnosis: acute inferior myocardial infarction Problems/Secondary Diagnoses: DKA. Parotitis. GI bleed Procedures: Cardiac catheterization with stent placement Consultations: Cardiology. Intensive care. Gastroenterology. (Yari Lewis MD) Medication Reconciliation New Medications: Amoxicillin & Pot Clavulanate (Augmentin 500MG) 1 Tab Tab 1 TAB PO BID for 7 Days, #14 TAB Metformin Hcl (Glucophage) 500 Mg Tab 500 MG PO BID, #30 TAB Aspirin (Aspirin EC Low Dose) 81 Mg Ectab 81 MG PO QAM for 30 Days Atorvastatin (Atorvastatin Calcium) 40 Mg Tab 80 MG PO QAM for 60 Days, #120 TAB 2 Refills Clopidogrel Bisulfate (Clopidogrel) 75 Mg Tab 75 MG PO QAM for 90 Days, #90 TAB 2 Refills Metoprolol Tartrate (Metoprolol Tartrate) 50 Mg Tab 50 MG PO BID for 30 Days, #60 TAB Pantoprazole (Pantoprazole Sodium) 40 Mg Tab 40 MG PO BID for 30 Days, #60 TAB Discharge Exam Doing a lot better . stool is more brown. Denies chest pain, shortness of breath , , palpitations or difficult breathing Review of Systems: Constitutional: No chills, No fever Eyes: No worsening of vision ENT: No hearing loss Respiratory: No cough, No shortness of breath, No sputum Cardiovascular: No chest pain Abdomen: No diarrhea, No nausea, No pain, No vomiting Musculoskeletal: No joint pain Genitourinary - Male: No dysuria, No hematuria Neurologic: No memory loss, No paralysis Psychiatric: No depression symptoms Endocrine: No fatigue Physical Exam: General Appearance: WD/WN, no apparent distress Eyes: normal inspection ENT: normal ENT inspection, hearing grossly normal, TMs normal, + pertinent finding (left-sided swelling improved) Neck: supple, thyroid normal Respiratory/Chest: chest non-tender, lungs clear, normal breath sounds Cardiovascular: regular rate, rhythm Abdomen / GI: normal bowel sounds, non tender, soft Neurologic/Psychiatric: alert, normal mood/affect, oriented x 3 Skin: normal color (Yari Lewis MD) Hospital Course Mr. Puentes is a 55-year-old male who presented as a Heart Alert this evening, was found to have 100% blockage of RCA with 2 drug-eluting stents placed by Dr. Reed, also found to be in DKA. Over the last 4 days, he had persistent GI symptoms, including nausea, vomiting , diarrhea, which made him feel very weak. He had occasional shortness of breath and was brought in to the ED by his . He denied any chest pain at any point. He does not have a history of diabetes. He reports over the last 4 days he has not been able to keep anything down, so he was drinking very sugary drinks, including iced tea and lemonade. He reports he started to feel weak and fatigued with any exertion. Also reported intermittent chills, but denied having an actual fever. He thought he had the flu so did not seek medical attention. He does not have a primary care provider. On arrival to the ED, he was found to be in atrial fibrillation with RVR. He was given 5mg of IV Lopressor. His EKG also showed ST elevation in the inferior leads and a heart alert was called. He was found to have 100% blockage of the RCA and had 2 drug eluting stents placed earlier today. His pH was also 7.11, with a bicarb of 4 and BSGs of 458-492. He was given NSS, 4 ampoules of bicarb, 10 units of IV insulin and his pH has come up to 7.24. Acute inferior STEMI s/p 2 drug eluting stents in RCA - Continue dual antiplatelet therapy with aspirin 81 mg daily and Plavix 75 mg daily - Metoprolol 50 mg BID - Atorvastatin 40 mg daily - Lisinopril was not started considering low blood pressure. It will eventually need to be added as blood pressure allows. - Referral made to cardiac rehabilitation - Follow up with Dr. Reed in 1-2 weeks Atrial fibrillation with RVR: Converted to sinus rhythm Continues to be in sinus rhythm on discharge. He had developed atrial fibrillation and had converted back to sinus rhythm after his metoprolol dosage was increased to 50 mg twice a day from 25 mg twice a day. - [id number] score of 2 - Metoprolol increased to 50 mg BID per cardiology - He was initially started on Eliquis 5 mg twice a day and soon developed some dark stools. After weighing the risks and benefits and after discussion with cardiology and the patient , it was stopped. GI bleeding: Likely secondary to AC ( aspirin/plavix/eliquis): - eliquis has been stopped since. He will need to continue aspirin and Plavix considering stent placement - Black stools tested positive for Hemoccult - Hemoglobin at discharge was 12. - Continue Protonix 40 mg twice a day - He will need to follow up with gastroenterology for upper endoscopy and colonoscopy in 3-4 weeks. - Stool H. pylori antigen is currently pending - H.Pylori pending New-onset diabetes/ presented as DKA - Hba1c at 12.9 - Was managed per protocol -And eventually switched to insulin 70/30 - Discharged with metformin 500 mg twice a day to be taken for 3 days while monitoring blood sugars 4 times daily. If able to tolerate, increase dose 1000 mg twice a day. - If unable to tolerate the GI side effects of metformin advised to take 10 units of insulin 70/30 every morning while monitoring blood sugars. Follow-up with primary care physician for dose adjustment within 1 week Left sided parotitis: - Soft tissue US: Echogenic and edematous left parotid gland which favors a parotitis. There are few prominent lymph nodes within or adjacent to the parotid gland which are likely reactive. - Was initially started on IV Unasyn due to concerns of poor dental hygiene. Switched to Augmentin 500 mg 3 times a day for 6 more days - He will need to follow up with dental as an outpatient Total Time Spent: Greater than 30 minutes This includes examination of the patient, discharge planning, medication reconciliation, and communication with other providers. (Yari Lewis MD) Discharge Instructions Please refer to the electronic Patient Visit Report (Discharge Instructions) for additional information. (Yari Lewis MD) Follow-Up Follow-up with PCP in one week Follow up with cardiology in 1-2 weeks Follow-up with gastroenterology in 3-4 weeks (Yari Lewis MD) Additional Copies To Niko Bonner M.D.; Elder Reed MD; Allyson King M.D. Reviewed: Pt Seen/Exam by Me (Carmen De Oliveira DO) History Pt is feeling much improved after a shower. He has been tolerating PO without issue. Had a bowel movement that was "just a normal brown color". No further nosebleeds. No chest pain or SOB. Agree with HPI/ROS as noted. (Carmen De Oliveira, DO) General Appearance: WD/WN, no apparent distress Respiratory: normal breath sounds, no respiratory distress Cardiovascular: normal peripheral pulses, regular rate, rhythm Gastrointestinal: non tender, soft Extremities: non-tender, no pedal edema Neurologic/Psychiatric: alert, normal mood/affect, oriented x 3 Skin Characteristics: normal color, warm/dry (Carmen De Oliveira, DO) Assessment/Plan Resident Physician Supervision Note: I discussed the case with the resident and agree with the findings and plan as documented in the note. Any exceptions or clarifications are listed here: Documented By: Carmen De Oliveira Agree with plan as outlined above New dx DM, afib with RVR BS improving, A1c 12.3, however has not needed much insulin now that his BS have stabilized and will d/c on metformin with close BS monitoring pharmacy is working with pt education also STEMI being managed by cardiology, planning for triple therapy x1 month however eliquis now on hold due to likely upper GIB Pt was scheduled for EGD yesterday, but pt has decided against this due to risks Aspirin/plavix to be maintained per cardiology due to new stent Hb has been stable and stools back to normal color, will pursue c-scope for general screening after cards f/u and decide about EGD status at that time Parotitis noted on US, unasyn to augmentin to finish course as outpt Multiple appts in place for pt on d/c (Carmen De Oliveira, DO)
[2016-09-01] MEDS ORDERED: INSULIN HUMAN 70% NPH/30% REGULAR SC SCH (07:30)
[2016-10-11] MEDS ORDERED: METF-384 PO (10:10)
== END 2016-08-31 16:15 | disposition home or self-care (01) | DRG 246 ==
LOC: ENRESERVTM → ENRESERVDT → C.EDB 17:49 → C.MSICU 21:47 → C.2T 08-27 16:50
PROVIDERS: ADMIT Hospitalist; ATTEND Family Medicine
PROC: 4A023N7 Measurement of Cardiac Sampling and Pressure, Left Heart, Percutaneous Approach (ICD-10-PCS; principal; 2016-08-26 19:05)
PROC: B211YZZ Fluoroscopy of Multiple Coronary Arteries using Other Contrast (ICD-10-PCS; principal; 2016-08-26 19:05)
PROC: 027134Z Dilation of Coronary Artery, Two Arteries with Drug-eluting Intraluminal Device, Percutaneous Approach (ICD-10-PCS; principal; 2016-08-26 19:05)
PROC: 3E033PZ Introduction of Platelet Inhibitor into Peripheral Vein, Percutaneous Approach (ICD-10-PCS; principal; 2016-08-26 19:05)
DX: I21.09 ST elevation (STEMI) myocardial infarction involving other coronary artery of anterior wall (principal); E08.10 Diabetes mellitus due to underlying condition with ketoacidosis without coma; K92.2 Gastrointestinal hemorrhage, unspecified; E87.2 Acidosis; N17.9 Acute kidney failure, unspecified; I48.91 Unspecified atrial fibrillation; Z83.3 Family history of diabetes mellitus; Z82.49 Family history of ischemic heart disease and other diseases of the circulatory system; Z87.891 Personal history of nicotine dependence; E83.39 Other disorders of phosphorus metabolism; K11.20 Sialoadenitis, unspecified; T45.515A Adverse effect of anticoagulants, initial encounter

== ENCOUNTER → 2016-11-22 | Outpatient (CLI) | payer OTHER ==
[~2016-11-22] MED LIST changes: +ASPEC81 PO; +LPT40 PO; +METF-384 PO; +METO50TA17 PO; -PENDING D5NS+20mEq KCL IVF SCH; +PLV75 PO; +PRT40 PO
[2016-11-22 12:29] LABS: HEMATOCRIT 47.3 % (42-52); MEAN CELL VOLUME 83.3 fL (80-100); MEAN CORPUSCULAR HEMOGLOBIN 28.9 pg (25-34); MEAN CORPUSCULAR HGB CONC 34.7 g/dl (32-36); PLATELET COUNT 259 K/uL (130-400); RED BLOOD COUNT 5.68 M/uL (4.7-6.1); WHITE BLOOD COUNT 7.99 K/uL (4.8-10.8)
[2016-11-22 12:54] LABS: ESTIMATED AVERAGE GLUCOSE 160 mg/dl; HA1C FLAG Normal (Normal)
[2016-11-22 14:22] LABS: ALT/SGPT 47 U/L (12-78); AST/SGOT 18 U/L (15-37); BLOOD UREA NITROGEN 18 mg/dl (7-18); BUN/CREATININE RATIO 19.9 (10-20); CALCIUM 8.9 mg/dl (8.5-10.1); CARBON DIOXIDE 27 mmol/L (21-32); CHLORIDE 105 mmol/L (98-107); GLUCOSE 151 mg/dl (70-99); POTASSIUM 4.1 mmol/L (3.5-5.1); SODIUM 139 mmol/L (136-145)
[2016-11-22 14:23] LABS: ALB/GLOB RATIO 1.1 (0.9-2); ALKALINE PHOSPHATASE 74 U/L (45-117); CHOLESTEROL 84 mg/dl (0-200); HDL CHOLESTEROL 42 mg/dl; LDL CHOLESTEROL CALCULATED 20 mg/dl; TRIGLYCERIDES 108 mg/dl (0-150); VERY LOW DENSITY LIPOPROT CALC 22 mg/dl
== END | disposition home or self-care (01) ==
LOC: C.LAB 11:08
PROVIDERS: ATTEND Internal Medicine
DX: Z00.00 Encounter for general adult medical examination without abnormal findings (principal); E11.9 Type 2 diabetes mellitus without complications; I21.3 ST elevation (STEMI) myocardial infarction of unspecified site

== ENCOUNTER 2023-06-12 12:52 | Inpatient (IN) ==
[2023-06-12] MEDS ORDERED: ONDANSETRON INJ 2 MG/ML 2 ML VIAL IV STA (13:26)
[2023-06-12] MEDS ORDERED: FAMOTIDINE 20MG IV PUSH 20 MG/5 ML SYR IV STA (13:26)
[2023-06-12] MEDS ORDERED: SODIUM CHLORIDE 0.9% 500 ML IV STA (13:26)
--- NOTE | 2023-06-12 13:26 | ED Triage Note ---
Date of Service June 12, 2023 Provider in Triage Author: Belle Nunez History of Present Illness This patient was briefly evaluated while in triage. An abbreviated physical exam was performed. This patient is a 62-year-old Male who presents to the ED for evaluation of nausea and vomiting for the past 5-6 days. Has only vomited a couple times, mostly just throwing up phlegm. Today he feels SOB and congested which is new for him. The abdominal pain is usually only after he eats or drinks. He feels like he has to burp, but it is very difficult to burp. Denies urinary symptoms. Had diarrhea initially, but now not really having BMs. Physical Exam GENERAL: Appears ill, but non-toxic and in no acute distress. HEENT: Pupils equal. No obvious scleral icterus. HEART: Tachycardic without murmur. LUNGS: Clear to auscultation. No accessory muscle use. ABDOMEN: Soft, mild central tenderness to palpation. No guarding or rigidity. NEURO: Alert and oriented. No obvious neurological deficits on quick neuro exam. Initial orders for labs and / or imaging were placed and patient was placed in the waiting area until a bed is available. Please see further documentation for the full ED course. MDM / Impression Impression Impression: Influenza A, Atrial fibrillation with rapid ventricular response, Acute dehydration, DKA (diabetic ketoacidosis) Impression: DKA (diabetic ketoacidosis) Qualifiers: Diabetes mellitus type: type 2 Diabetes mellitus complication detail: without coma Qualified Code(s): E11.10 - Type 2 diabetes mellitus with ketoacidosis without coma
[2023-06-12] MEDS ORDERED: SODIUM CHLORIDE 0.9% 1,000 ML IV ONE ×2 (14:10→14:19)
--- NOTE | 2023-06-12 14:14 | Emergency Department Note ---
Impression & Plan Influenza A, Atrial fibrillation with rapid ventricular response, Acute dehydration, DKA (diabetic ketoacidosis) ED Provider Note Name: LESETR MORENO Age: 62 Sex: Male Arrives Via: Walk-In Informant: Patient, ED Provider: Lester Tate MD Chief Complaint: Illness Impression: As per impressions above Medical Decision Makin-year-old gentleman arrives for evaluation of severe illness. Patient with several days nausea vomiting diarrhea. Losing weight and getting severely dehydrated. Unable to keep down any of his meds recently. He arrives tachycardic weak appearing. Blood pressure stable. A-fib RVR/a flutter on arrival with heart rate in the 160s. He was given 2.5 L IV saline with improvement in hydration status though continues to have a heart rate in the 160s. Given 5 mg IV Lopressor and heart rate broke to the 130s A-fib. Given another 5 mg IV Lopressor and heart rate into the 1 teens. Patient is feeling significantly better. Throughout this patient's blood pressure remained stable if not a little bit on the hypertensive side. Patient is awake alert oriented no mental status change nor headache nor respiratory distress. Patient labs noted to be elevated hemoglobin, elevated BUN, elevated white count. Likely much of this is severe dehydration related. However he is also significantly acidotic with low bicarb, large anion gap, mild lactic acidosis and low pH. After IV hydration patient still has moderate hyperglycemia. In the setting of anion gap acidosis hyperglycemia will start insulin drip after discussing with hospitalist as well as ICU docs agree. Plan will be to place in the ICU though patient now looks significantly improved and is breathing comfortably. He has not had any chest pain. His EKG is with a flutter initially without clear evidence of ischemic findings. Does have mildly elevated troponin however I feel this is more demand mismatch rather than primary ACS. Influenza testing is positive for flu A. That said given his initial findings and dehydration and findings of severe sepsis he was given empiric IV antibiotics cefepime. Will hold off on further antibiotics in the ER given chest x-ray is clear urinalysis is not clearly infected and he does not have any other clear source of infection at this time. Triage/Nursing Notes reviewed by Me Differential:Infection, dehydration, metabolic abnormality, hypo/hyperglycemia, electrolyte disturbance, anemia, hypoxia, cardiac sources, intracerebral event, toxicologic, neurologic, as well as other pathologies. Vital Signs: reviewed and remarkable for tachycardia Interventions: Normal Saline bolus 2.5 L IV, normal saline infusion 250 mL/h, insulin infusion, Lopressor 5 mg IV x 2, cefepime 2 g IV Labs:ED labs Reviewed by me and remarkable for extensive laboratory abnormalities see chart for full. Imagin view chest x-ray as per my informal interpretation there is no infiltrate or effusion appreciated. No evidence of congestive failure at this time. Confirmed by radiology EKG:As per my interpretation. Indication weakness. A flutter at 165 bpm and a QTc of 480. There are nonspecific ST changes but no evidence of STEMI. There is no ectopy beyond a flutter. When compared to EKG from September 14, 2020 he is no longer in normal sinus rhythm. Cardiac/Tele Monitoring: Cardiac Monitoring: An Order was placed for continuous cardiac monitoring. The monitor shows a rate of 160 with a aflutter RVR rhythm. Sepsis reevaluation. Performed by me at 3:30 PM on 06/12/2020. Patient has received 2.5 L normal saline bolus IV over the last 2 hours. Included repeat volume status exam. Blood pressure 130/110, good cap refill, heart rate 130 A- fib RVR, patient breathing much more comfortably. Consults:Dr Curiel MD Hospitalist Dr Becker [facility] Plan: Disposition:Hospitalization. Condition: Fair History of Present Illness: 62-year-old gentleman arrives for evaluation of nausea vomiting diarrhea. Patient states he has had progressive worsening weakness since he began having symptoms 4 to 5 days ago. This has been associated with a 10+ pound weight loss. Has been unable to keep down any fluids or pills over the last few days either. Notes diffuse generalized weakness. He denies any specific abdominal pain. Has not been having any chest pain, shortness of breath, back pain, headache, fevers, chills, runny nose, back pain, urinary burning or frequency. Denies any leg swelling or rashes. No recent falls, trauma, injuries. He has not had any syncope though does note quite lightheaded with standing. Has not taken any other medications last few days due to having illness. Has history of OR with stents a few years ago but does not have any history A-fib. Past Medical History:Diabetes, hypertension, CAD status status post stenting, dyslipidemia Home Medications:See Below Allergies:No known drug allergy Vitals:Blood Pressure: 109/76, Pulse 165, RR 22, T 36.3C, O2 98% on RA Physical Exam: GENERAL: Patient is tired and dehydrated appearing and in moderate distress. Dry mucous membranes RESPIRATORY: No dyspnea. Clear to auscultation and equal bilaterally. CARDIOVASCULAR: Tachy.No murmur appreciated. GASTROINTESTINAL: Abdomen soft, non-tender, no peritonitis. EXTREMITIES: Normal motion all extremities, no cyanosis, no edema. NEUROLOGIC: Alert and oriented. No focal neurologic deficits appreciated SKIN: No rash, no jaundice, no diaphoresis. PSYCH: Appropriate GCS: 15 ED Course: Times/Reassessments: Patient is significantly improved after initial 2.5 L IV fluids. Many repeat evaluations throughout his stay. Critical Care: I have personally spent 90 minutes of critical care time in the direct management of this patient. Severe sepsis with a flutter RVR in the setting of significant dehydration, DKA and influenza A. Requiring fluid resuscitation as well as IV medication management of atrial flutter with RVR. This was a life/limb threatening event. This 90 minutes is in excess of all separately billable procedures. Lester Tate MD Past Med/Surg History Medical History (Updated 06/12/23 @ 16:39 by Lester Tate MD) Type 2 diabetes mellitus with peripheral neuropathy Arthritic-like pain CAD (coronary artery disease) follows with Dr. Reed Atrial fibrillation happened during OR in 2016 > controlled Hydrocele NSTEMI (non-ST elevation myocardial infarction) August 2016> [facility] > 2 stents Dyslipidemia Hypertension Surgical History History of hydrocelectomy right hydrocelectomy on 09/19/2020. lipoma also removed from the cord. Surgeon was Dr. Miko Wells History of tonsillectomy [place] teeth extracted History of surgical procedure on mouth 1979> cyst on lip removed History of heart artery stent x2 LAD > [facility] > August 2016 History of surgery on upper extremity bone cyst right upper arm> 1970's Family History Father Alzheimer disease Mother Diabetes Social History Smoking Status: Former smoker Tobacco Type: Cigarettes packs per day: 1; Second Hand Exposure: Yes (as kid); Do You Dip or Chew Tobacco: No; Hx Alcohol Use: Yes Alcohol type: hard liquor Hx Substance Use: Yes Substance Use Type Other:: daily use small amt > vapes Preferred Language: Swazi Communication Ability: Effective Visual Impairment: No Limitations Hearing Ability: Normal Financial Controller Required: No Beliefs That Will Affect Care: None marital status: Current Living Situation: Spouse current occupational status: employed Feels Safe at Home: Yes Physical Activity Frequency: Does not Exercise Seatbelt Use: always Assistive Devices: Glasses Allergies Allergies Allergy/AdvReac Type Severity Reaction Status Date / Time No Known Allergies Allergy Verified 06/12/23 16:05 Home Meds Home Medications Medication Instructions Recorded Confirmed aspirin 81 mg tablet,delayed 81 mg PO QAM 05/11/19 06/12/23 release semaglutide 7 mg tablet (Rybelsus) 7 mg PO BID 06/12/23 06/12/23 Previous Rx's Medication Instructions Recorded sildenafil 100 mg tablet (Viagra) 100 mg PO DAILY PRN sexual 08/28/21 activity #30 tabs metformin 1,000 mg tablet 1,000 mg PO BID #180 tabs 01/11/23 metoprolol succinate 50 mg 50 mg PO DAILY #90 tabs 01/11/23 tablet,extended release 24 hr rosuvastatin 20 mg tablet 20 mg PO DAILY #90 tabs 01/11/23 empagliflozin 10 mg tablet 10 mg PO DAILY #90 tabs 03/04/23 (Jardiance) Results & Data (ED) Vital Signs Vital Signs - 24 hr 06/12/23 13:23 06/12/23 14:14 06/12/23 14:18 Temperature 36.3 C L Temperature Source Temporal Artery Scan Pulse Rate 107 H 161 H Pulse Rate [Apical] Pulse Rate from SpO2 Sensor Respiratory Rate 22 20 Respiratory Effort / Characteristics Respiratory Depth Respiratory Pattern Blood Pressure 109/76 Blood Pressure [Right Arm] Blood Pressure Mean 87 Blood Pressure Mean [Right Arm] Blood Pressure Position [Right Arm] Pulse Oximetry 98 97 Oxygen Delivery Method Room Air Sepsis Recent Fever Within 48 Hours No Sepsis New/Unexplained Change in Mental Status N/A Sepsis Action Taken by Nursing Adv Provider Notified 06/12/23 14:19 06/12/23 14:20 06/12/23 14:26 Temperature Temperature Source Pulse Rate 159 H 162 H Pulse Rate [Apical] 160 H Pulse Rate from SpO2 Sensor Respiratory Rate 22 Respiratory Effort / Characteristics Non-Labored Spontaneous Respiratory Depth Normal Respiratory Pattern Regular Blood Pressure Blood Pressure [Right Arm] 147/117 H Blood Pressure Mean Blood Pressure Mean [Right Arm] 127 Blood Pressure Position [Right Arm] Sitting Pulse Oximetry 97 Oxygen Delivery Method Room Air Sepsis Recent Fever Within 48 Hours Sepsis New/Unexplained Change in Mental Status Sepsis Action Taken by Nursing 06/12/23 14:30 06/12/23 14:40 06/12/23 14:46 Temperature Temperature Source Pulse Rate 156 H 161 H 160 H Pulse Rate [Apical] Pulse Rate from SpO2 Sensor Respiratory Rate 24 Respiratory Effort / Characteristics Respiratory Depth Respiratory Pattern Blood Pressure Blood Pressure [Right Arm] Blood Pressure Mean Blood Pressure Mean [Right Arm] Blood Pressure Position [Right Arm] Pulse Oximetry Oxygen Delivery Method Sepsis Recent Fever Within 48 Hours Sepsis New/Unexplained Change in Mental Status Sepsis Action Taken by Nursing 06/12/23 14:46 06/12/23 14:50 06/12/23 15:00 Temperature Temperature Source Pulse Rate 158 H 170 H Pulse Rate [Apical] Pulse Rate from SpO2 Sensor Respiratory Rate 24 Respiratory Effort / Characteristics Respiratory Depth Respiratory Pattern Blood Pressure 167/90 H Blood Pressure [Right Arm] Blood Pressure Mean 93 Blood Pressure Mean [Right Arm] Blood Pressure Position [Right Arm] Pulse Oximetry Oxygen Delivery Method Sepsis Recent Fever Within 48 Hours Sepsis New/Unexplained Change in Mental Status Sepsis Action Taken by Nursing 06/12/23 15:10 06/12/23 15:14 06/12/23 15:14 Temperature Temperature Source Pulse Rate 146 H 157 H Pulse Rate [Apical] Pulse Rate from SpO2 Sensor 149 H Respiratory Rate Respiratory Effort / Characteristics Respiratory Depth Respiratory Pattern Blood Pressure 145/103 H Blood Pressure [Right Arm] Blood Pressure Mean 110 Blood Pressure Mean [Right Arm] Blood Pressure Position [Right Arm] Pulse Oximetry 98 Oxygen Delivery Method Sepsis Recent Fever Within 48 Hours Sepsis New/Unexplained Change in Mental Status Sepsis Action Taken by Nursing 06/12/23 15:15 06/12/23 15:15 06/12/23 15:20 Temperature Temperature Source Pulse Rate 160 H 161 H Pulse Rate [Apical] Pulse Rate from SpO2 Sensor 166 H 160 H Respiratory Rate 23 Respiratory Effort / Characteristics Respiratory Depth Respiratory Pattern Blood Pressure 133/104 H Blood Pressure [Right Arm] Blood Pressure Mean 109 Blood Pressure Mean [Right Arm] Blood Pressure Position [Right Arm] Pulse Oximetry 99 99 Oxygen Delivery Method Sepsis Recent Fever Within 48 Hours Sepsis New/Unexplained Change in Mental Status Sepsis Action Taken by Nursing 06/12/23 15:30 06/12/23 15:30 06/12/23 15:31 Temperature Temperature Source Pulse Rate 140 H 134 H Pulse Rate [Apical] Pulse Rate from SpO2 Sensor 154 H 142 H Respiratory Rate 22 Respiratory Effort / Characteristics Respiratory Depth Respiratory Pattern Blood Pressure 248/211 H Blood Pressure [Right Arm] Blood Pressure Mean 235 Blood Pressure Mean [Right Arm] Blood Pressure Position [Right Arm] Pulse Oximetry 91 98 Oxygen Delivery Method Sepsis Recent Fever Within 48 Hours Sepsis New/Unexplained Change in Mental Status Sepsis Action Taken by Nursing 06/12/23 15:31 06/12/23 15:35 06/12/23 15:35 Temperature Temperature Source Pulse Rate 124 H Pulse Rate [Apical] Pulse Rate from SpO2 Sensor 133 H Respiratory Rate 24 Respiratory Effort / Characteristics Respiratory Depth Respiratory Pattern Blood Pressure 142/107 H 134/94 Blood Pressure [Right Arm] Blood Pressure Mean 118 116 Blood Pressure Mean [Right Arm] Blood Pressure Position [Right Arm] Pulse Oximetry 94 Oxygen Delivery Method Sepsis Recent Fever Within 48 Hours Sepsis New/Unexplained Change in Mental Status Sepsis Action Taken by Nursing 06/12/23 15:40 06/12/23 15:40 06/12/23 15:45 Temperature Temperature Source Pulse Rate 125 H 126 H Pulse Rate [Apical] Pulse Rate from SpO2 Sensor 101 H 99 H Respiratory Rate Respiratory Effort / Characteristics Respiratory Depth Respiratory Pattern Blood Pressure 133/103 H Blood Pressure [Right Arm] Blood Pressure Mean 114 Blood Pressure Mean [Right Arm] Blood Pressure Position [Right Arm] Pulse Oximetry 92 91 Oxygen Delivery Method Sepsis Recent Fever Within 48 Hours Sepsis New/Unexplained Change in Mental Status Sepsis Action Taken by Nursing 06/12/23 15:45 06/12/23 15:48 06/12/23 15:50 Temperature Temperature Source Pulse Rate 126 H 132 H Pulse Rate [Apical] Pulse Rate from SpO2 Sensor 135 H Respiratory Rate 18 Respiratory Effort / Characteristics Respiratory Depth Respiratory Pattern Blood Pressure 134/110 H 134/110 H Blood Pressure [Right Arm] Blood Pressure Mean 119 Blood Pressure Mean [Right Arm] Blood Pressure Position [Right Arm] Pulse Oximetry 98 Oxygen Delivery Method Sepsis Recent Fever Within 48 Hours Sepsis New/Unexplained Change in Mental Status Sepsis Action Taken by Nursing 06/12/23 15:50 06/12/23 15:56 06/12/23 15:56 Temperature Temperature Source Pulse Rate 115 H Pulse Rate [Apical] Pulse Rate from SpO2 Sensor 129 H Respiratory Rate 21 Respiratory Effort / Characteristics Respiratory Depth Respiratory Pattern Blood Pressure 147/113 H 128/87 Blood Pressure [Right Arm] Blood Pressure Mean 128 91 Blood Pressure Mean [Right Arm] Blood Pressure Position [Right Arm] Pulse Oximetry 98 Oxygen Delivery Method Sepsis Recent Fever Within 48 Hours Sepsis New/Unexplained Change in Mental Status Sepsis Action Taken by Nursing 06/12/23 16:00 06/12/23 16:01 06/12/23 16:01 Temperature Temperature Source Pulse Rate 117 H 115 H Pulse Rate [Apical] Pulse Rate from SpO2 Sensor 113 H 137 H Respiratory Rate 15 24 Respiratory Effort / Characteristics Respiratory Depth Respiratory Pattern Blood Pressure 129/98 Blood Pressure [Right Arm] Blood Pressure Mean 112 Blood Pressure Mean [Right Arm] Blood Pressure Position [Right Arm] Pulse Oximetry 100 94 Oxygen Delivery Method Sepsis Recent Fever Within 48 Hours Sepsis New/Unexplained Change in Mental Status Sepsis Action Taken by Nursing 06/12/23 16:05 06/12/23 16:05 06/12/23 16:10 Temperature Temperature Source Pulse Rate 115 H 108 H Pulse Rate [Apical] Pulse Rate from SpO2 Sensor 131 H 116 H Respiratory Rate 19 21 Respiratory Effort / Characteristics Respiratory Depth Respiratory Pattern Blood Pressure 130/71 Blood Pressure [Right Arm] Blood Pressure Mean 101 Blood Pressure Mean [Right Arm] Blood Pressure Position [Right Arm] Pulse Oximetry 97 98 Oxygen Delivery Method Sepsis Recent Fever Within 48 Hours Sepsis New/Unexplained Change in Mental Status Sepsis Action Taken by Nursing 06/12/23 16:10 06/12/23 16:12 06/12/23 16:15 Temperature Temperature Source Pulse Rate 112 H 111 H Pulse Rate [Apical] Pulse Rate from SpO2 Sensor 133 H Respiratory Rate 22 Respiratory Effort / Characteristics Respiratory Depth Respiratory Pattern Blood Pressure 147/102 H 147/102 H Blood Pressure [Right Arm] Blood Pressure Mean 111 Blood Pressure Mean [Right Arm] Blood Pressure Position [Right Arm] Pulse Oximetry 94 Oxygen Delivery Method Sepsis Recent Fever Within 48 Hours Sepsis New/Unexplained Change in Mental Status Sepsis Action Taken by Nursing 06/12/23 16:15 06/12/23 16:20 06/12/23 16:20 Temperature Temperature Source Pulse Rate 112 H Pulse Rate [Apical] Pulse Rate from SpO2 Sensor 110 H Respiratory Rate 28 H Respiratory Effort / Characteristics Respiratory Depth Respiratory Pattern Blood Pressure 140/106 H 136/102 H Blood Pressure [Right Arm] Blood Pressure Mean 121 115 Blood Pressure Mean [Right Arm] Blood Pressure Position [Right Arm] Pulse Oximetry 100 Oxygen Delivery Method Sepsis Recent Fever Within 48 Hours Sepsis New/Unexplained Change in Mental Status Sepsis Action Taken by Nursing 06/12/23 16:25 06/12/23 16:25 06/12/23 16:30 Temperature Temperature Source Pulse Rate 118 H 116 H Pulse Rate [Apical] Pulse Rate from SpO2 Sensor 118 H 108 H Respiratory Rate 25 H 23 Respiratory Effort / Characteristics Respiratory Depth Respiratory Pattern Blood Pressure 141/98 H Blood Pressure [Right Arm] Blood Pressure Mean 108 Blood Pressure Mean [Right Arm] Blood Pressure Position [Right Arm] Pulse Oximetry 98 99 Oxygen Delivery Method Sepsis Recent Fever Within 48 Hours Sepsis New/Unexplained Change in Mental Status Sepsis Action Taken by Nursing 06/12/23 16:30 06/12/23 16:36 06/12/23 16:36 Temperature Temperature Source Pulse Rate 120 H Pulse Rate [Apical] Pulse Rate from SpO2 Sensor 111 H Respiratory Rate 23 Respiratory Effort / Characteristics Respiratory Depth Respiratory Pattern Blood Pressure 144/97 H 126/102 H Blood Pressure [Right Arm] Blood Pressure Mean 102 107 Blood Pressure Mean [Right Arm] Blood Pressure Position [Right Arm] Pulse Oximetry 94 Oxygen Delivery Method Sepsis Recent Fever Within 48 Hours Sepsis New/Unexplained Change in Mental Status Sepsis Action Taken by Nursing 06/12/23 16:40 06/12/23 16:40 06/12/23 16:45 Temperature Temperature Source Pulse Rate 118 H 119 H Pulse Rate [Apical] Pulse Rate from SpO2 Sensor 107 H 118 H Respiratory Rate 29 H 20 Respiratory Effort / Characteristics Respiratory Depth Respiratory Pattern Blood Pressure 143/86 H Blood Pressure [Right Arm] Blood Pressure Mean 106 Blood Pressure Mean [Right Arm] Blood Pressure Position [Right Arm] Pulse Oximetry 98 94 Oxygen Delivery Method Sepsis Recent Fever Within 48 Hours Sepsis New/Unexplained Change in Mental Status Sepsis Action Taken by Nursing 06/12/23 16:45 06/12/23 16:50 06/12/23 16:50 Temperature Temperature Source Pulse Rate 115 H Pulse Rate [Apical] Pulse Rate from SpO2 Sensor 118 H Respiratory Rate 20 Respiratory Effort / Characteristics Respiratory Depth Respiratory Pattern Blood Pressure 133/94 130/96 Blood Pressure [Right Arm] Blood Pressure Mean 99 98 Blood Pressure Mean [Right Arm] Blood Pressure Position [Right Arm] Pulse Oximetry 94 Oxygen Delivery Method Sepsis Recent Fever Within 48 Hours Sepsis New/Unexplained Change in Mental Status Sepsis Action Taken by Nursing 06/12/23 16:56 06/12/23 16:56 06/12/23 17:00 Temperature Temperature Source Pulse Rate 132 H 125 H Pulse Rate [Apical] Pulse Rate from SpO2 Sensor 124 H 128 H Respiratory Rate 26 H 25 H Respiratory Effort / Characteristics Respiratory Depth Respiratory Pattern Blood Pressure 107/66 Blood Pressure [Right Arm] Blood Pressure Mean 67 Blood Pressure Mean [Right Arm] Blood Pressure Position [Right Arm] Pulse Oximetry 91 94 Oxygen Delivery Method Sepsis Recent Fever Within 48 Hours Sepsis New/Unexplained Change in Mental Status Sepsis Action Taken by Nursing 06/12/23 17:00 06/12/23 17:06 06/12/23 17:06 Temperature Temperature Source Pulse Rate 118 H Pulse Rate [Apical] Pulse Rate from SpO2 Sensor Respiratory Rate 21 Respiratory Effort / Characteristics Respiratory Depth Respiratory Pattern Blood Pressure 123/81 115/74 Blood Pressure [Right Arm] Blood Pressure Mean 84 82 Blood Pressure Mean [Right Arm] Blood Pressure Position [Right Arm] Pulse Oximetry 95 Oxygen Delivery Method Sepsis Recent Fever Within 48 Hours Sepsis New/Unexplained Change in Mental Status Sepsis Action Taken by Nursing Laboratory Data 06/12/23 13:15 06/12/23 13:15 Lab Results 06/12/23 06/12/23 06/12/23 Range/Units 13:15 13:50 13:55 WBC 15.23 H (4.8-10.8) K/ul RBC 7.65 H (4.70-6.10) M/uL Hgb 21.4 H (14.0-18.0) g/dl POC Hgb (14.0-18.0) g/dl Hct 62.8 H (42.0-52.0) % POC Hct (42-52) % MCV 82.1 (80.0-100.0) fL MCH 28.0 (25.0-34.0) pg MCHC 34.1 (32.0-36.0) g/dL RDW Std Deviation 39.7 (36.4-46.3) fL RDW Coeff of [place] 15.4 H (11.5-14.5) % Plt Count 251 (130-400) K/uL MPV 9.6 (9.4-12.4) fL Immature Gran % (Auto) 0.6 % Neut % (Auto) 80.4 % Lymph % (Auto) 3.2 % [place] % (Auto) 15.2 % Eos % (Auto) 0.1 % Baso % (Auto) 0.5 % Neut # (Auto) 12.24 H (1.40-6.50) K/uL Lymph # (Auto) 0.49 L (1.20-3.40) K/uL [place] # (Auto) 2.32 H (0.11-0.59) K/uL Eos # (Auto) 0.01 (0.00-0.50) K/uL Baso # (Auto) 0.08 (0.00-0.20) K/uL Immature Gran # (Auto) 0.09 (0.01-0.20) K/uL PT Cancelled INR Cancelled VBG pH (7.36-7.41) VBG pCO2 (38-50) mmHg VBG pO2 mmHg VBG HCO3 mmol/L VBG O2 Saturation % VBG Base Excess mEq/L POC Sodium (135-144) mmol/L Sodium 129 L (136-145) mmol/L POC Potassium (3.3-5.0) mmol/L Potassium 5.1 (3.5-5.1) mmol/L POC Chloride (101-112) mmol/L Chloride 90 L (98-107) mmol/L Carbon Dioxide 16 L (21-32) mmol/L POC Total CO2 (24-31) mmol/L Anion Gap 23 H (3-11) POC Anion Gap (16-25) mmol/L POC BUN (7-18) mg/dl BUN 44 H (6-23) mg/dl Creatinine 1.39 (0.6-1.4) mg/dl POC Creatinine (0.6-1.3) mg/dl Est Cr Clr Drug Dosing 57.6 ml/min Est GFR ( Amer) 62.9 ml/min Est GFR (Non-Af Amer) 54.3 ml/min BUN/Creatinine Ratio 31.7 H (10-20) Glucose 457 H* (70-99(Fasting)) mg/dl POC Glucose (70-99) mg/dl POC Glucose (other) (70-99) mg/dl Lactate (0.4-2.0) mmol/L Calcium 9.7 (8.6-10.3) mg/dl POC Ioniz Calcium Nat (1.12-1.32) mmol/l Phosphorus (2.5-4.9) mg/dl Magnesium 2.7 H (1.7-2.4) mg/dl Total Bilirubin 1.2 H (0.2-1.0) mg/dl AST 13 (13-39) U/L ALT 12 (7-52) U/L Alkaline Phosphatase 69 (34-104) U/L Troponin I High Sens 62.8 H* (0-20) pg/ml Total Protein 8.4 H (6.0-8.3) gm/dl Albumin 4.5 (3.4-5.0) gm/dl Globulin 3.9 (2.5-4.0) gm/dl Albumin/Globulin Ratio 1.2 (0.9-2) Lipase 37 (11-82) U/L Procalcitonin 0.11 (0-0.5) ng/ml TSH 1.564 (0.300-4.500) uIu/ml Urine Color Urine Appearance (Clear) Urine pH (4.5-7.5) Ur Specific [place] (1.000-1.030) Urine Protein (Negative) Urine Glucose (UA) (Negative) Urine Ketones (Negative) Urine Blood (Negative) Urine Nitrite (Negative) Urine Bilirubin (Negative) Urine Urobilinogen (Negative) Ur Leukocyte Esterase (Negative) Urine WBC (Auto) (0-5) /hpf Urine RBC (Auto) (0-4) /hpf U Hyaline Cast (Auto) (0-5) /lpf U Epithel Cells (Auto) (0-5) /lpf Urine Bacteria (Auto) (Negative) Adenovirus (PCR) Not Detected (NotDetected) B. pertussis DNA (PCR) Not Detected (NotDetected) B.parapertussis DNA PCR Not Detected (NotDetected) C. pneumoniae DNA (PCR) Not Detected (NotDetected) Coronavirus OC43 (PCR) Not Detected (NotDetected) Coronavirus HKU1 (PCR) Not Detected (NotDetected) Coronavirus 229E (PCR) Not Detected (NotDetected) SARS-CoV-2 (PCR) Not Detected (NotDetected) Coronavirus NL63 (PCR) Not Detected (NotDetected) Human Metapneumovir PCR Not Detected (NotDetected) Influenza A (H3) PCR DETECTED A* (NotDetected) Influenza Type B (PCR) Not Detected (NotDetected) M. pneumoniae (PCR) Not Detected (NotDetected) Parainfluenza 1 (PCR) Not Detected (NotDetected) Parainfluenza 2 (PCR) Not Detected (NotDetected) Parainfluenza 3 (PCR) Not Detected (NotDetected) Parainfluenza 4 (PCR) Not Detected (NotDetected) RSV (PCR) Not Detected (NotDetected) Entero/Rhino (PCR) Not Detected (NotDetected) 06/12/23 06/12/23 06/12/23 Range/Units 14:14 14:19 15:07 WBC (4.8-10.8) K/ul RBC (4.70-6.10) M/uL Hgb (14.0-18.0) g/dl POC Hgb 22.4 H* (14.0-18.0) g/dl Hct (42.0-52.0) % POC Hct 66 H* (42-52) % MCV (80.0-100.0) fL MCH (25.0-34.0) pg MCHC (32.0-36.0) g/dL RDW Std Deviation (36.4-46.3) fL RDW Coeff of [place] (11.5-14.5) % Plt Count (130-400) K/uL MPV (9.4-12.4) fL Immature Gran % (Auto) % Neut % (Auto) % Lymph % (Auto) % [place] % (Auto) % Eos % (Auto) % Baso % (Auto) % Neut # (Auto) (1.40-6.50) K/uL Lymph # (Auto) (1.20-3.40) K/uL [place] # (Auto) (0.11-0.59) K/uL Eos # (Auto) (0.00-0.50) K/uL Baso # (Auto) (0.00-0.20) K/uL Immature Gran # (Auto) (0.01-0.20) K/uL PT INR VBG pH 7.15 L (7.36-7.41) VBG pCO2 39 (38-50) mmHg VBG pO2 44 mmHg VBG HCO3 14 mmol/L VBG O2 Saturation 65.1 % VBG Base Excess -14.6 mEq/L POC Sodium 130 L (135-144) mmol/L Sodium (136-145) mmol/L POC Potassium 4.9 (3.3-5.0) mmol/L Potassium (3.5-5.1) mmol/L POC Chloride 98 L (101-112) mmol/L Chloride (98-107) mmol/L Carbon Dioxide (21-32) mmol/L POC Total CO2 17 L (24-31) mmol/L Anion Gap (3-11) POC Anion Gap 20.0 (16-25) mmol/L POC BUN 45 H (7-18) mg/dl BUN (6-23) mg/dl Creatinine (0.6-1.4) mg/dl POC Creatinine 1.0 (0.6-1.3) mg/dl Est Cr Clr Drug Dosing ml/min Est GFR ( Amer) ml/min Est GFR (Non-Af Amer) ml/min BUN/Creatinine Ratio (10-20) Glucose (70-99(Fasting)) mg/dl POC Glucose 361 H* (70-99) mg/dl POC Glucose (other) 430 H* (70-99) mg/dl Lactate 2.6 H* (0.4-2.0) mmol/L Calcium (8.6-10.3) mg/dl POC Ioniz Calcium Nat 1.13 (1.12-1.32) mmol/l Phosphorus (2.5-4.9) mg/dl Magnesium (1.7-2.4) mg/dl Total Bilirubin (0.2-1.0) mg/dl AST (13-39) U/L ALT (7-52) U/L Alkaline Phosphatase (34-104) U/L Troponin I High Sens (0-20) pg/ml Total Protein (6.0-8.3) gm/dl Albumin (3.4-5.0) gm/dl Globulin (2.5-4.0) gm/dl Albumin/Globulin Ratio (0.9-2) Lipase (11-82) U/L Procalcitonin (0-0.5) ng/ml TSH (0.300-4.500) uIu/ml Urine Color Urine Appearance (Clear) Urine pH (4.5-7.5) Ur Specific [place] (1.000-1.030) Urine Protein (Negative) Urine Glucose (UA) (Negative) Urine Ketones (Negative) Urine Blood (Negative) Urine Nitrite (Negative) Urine Bilirubin (Negative) Urine Urobilinogen (Negative) Ur Leukocyte Esterase (Negative) Urine WBC (Auto) (0-5) /hpf Urine RBC (Auto) (0-4) /hpf U Hyaline Cast (Auto) (0-5) /lpf U Epithel Cells (Auto) (0-5) /lpf Urine Bacteria (Auto) (Negative) Adenovirus (PCR) (NotDetected) B. pertussis DNA (PCR) (NotDetected) B.parapertussis DNA PCR (NotDetected) C. pneumoniae DNA (PCR) (NotDetected) Coronavirus OC43 (PCR) (NotDetected) Coronavirus HKU1 (PCR) (NotDetected) Coronavirus 229E (PCR) (NotDetected) SARS-CoV-2 (PCR) (NotDetected) Coronavirus NL63 (PCR) (NotDetected) Human Metapneumovir PCR (NotDetected) Influenza A (H3) PCR (NotDetected) Influenza Type B (PCR) (NotDetected) M. pneumoniae (PCR) (NotDetected) Parainfluenza 1 (PCR) (NotDetected) Parainfluenza 2 (PCR) (NotDetected) Parainfluenza 3 (PCR) (NotDetected) Parainfluenza 4 (PCR) (NotDetected) RSV (PCR) (NotDetected) Entero/Rhino (PCR) (NotDetected) 06/12/23 06/12/23 06/12/23 Range/Units 15:20 15:21 15:47 WBC (4.8-10.8) K/ul RBC (4.70-6.10) M/uL Hgb (14.0-18.0) g/dl POC Hgb (14.0-18.0) g/dl Hct (42.0-52.0) % POC Hct (42-52) % MCV (80.0-100.0) fL MCH (25.0-34.0) pg MCHC (32.0-36.0) g/dL RDW Std Deviation (36.4-46.3) fL RDW Coeff of [place] (11.5-14.5) % Plt Count (130-400) K/uL MPV (9.4-12.4) fL Immature Gran % (Auto) % Neut % (Auto) % Lymph % (Auto) % [place] % (Auto) % Eos % (Auto) % Baso % (Auto) % Neut # (Auto) (1.40-6.50) K/uL Lymph # (Auto) (1.20-3.40) K/uL [place] # (Auto) (0.11-0.59) K/uL Eos # (Auto) (0.00-0.50) K/uL Baso # (Auto) (0.00-0.20) K/uL Immature Gran # (Auto) (0.01-0.20) K/uL PT 10.4 INR 0.9 VBG pH (7.36-7.41) VBG pCO2 (38-50) mmHg VBG pO2 mmHg VBG HCO3 mmol/L VBG O2 Saturation % VBG Base Excess mEq/L POC Sodium (135-144) mmol/L Sodium (136-145) mmol/L POC Potassium (3.3-5.0) mmol/L Potassium (3.5-5.1) mmol/L POC Chloride (101-112) mmol/L Chloride (98-107) mmol/L Carbon Dioxide (21-32) mmol/L POC Total CO2 (24-31) mmol/L Anion Gap (3-11) POC Anion Gap (16-25) mmol/L POC BUN (7-18) mg/dl BUN (6-23) mg/dl Creatinine (0.6-1.4) mg/dl POC Creatinine (0.6-1.3) mg/dl Est Cr Clr Drug Dosing ml/min Est GFR ( Amer) ml/min Est GFR (Non-Af Amer) ml/min BUN/Creatinine Ratio (10-20) Glucose (70-99(Fasting)) mg/dl POC Glucose 302 H* (70-99) mg/dl POC Glucose (other) (70-99) mg/dl Lactate (0.4-2.0) mmol/L Calcium (8.6-10.3) mg/dl POC Ioniz Calcium Nat (1.12-1.32) mmol/l Phosphorus 3.6 (2.5-4.9) mg/dl Magnesium (1.7-2.4) mg/dl Total Bilirubin (0.2-1.0) mg/dl AST (13-39) U/L ALT (7-52) U/L Alkaline Phosphatase (34-104) U/L Troponin I High Sens 48.5 H D (0-20) pg/ml Total Protein (6.0-8.3) gm/dl Albumin (3.4-5.0) gm/dl Globulin (2.5-4.0) gm/dl Albumin/Globulin Ratio (0.9-2) Lipase (11-82) U/L Procalcitonin (0-0.5) ng/ml TSH (0.300-4.500) uIu/ml Urine Color Urine Appearance (Clear) Urine pH (4.5-7.5) Ur Specific [place] (1.000-1.030) Urine Protein (Negative) Urine Glucose (UA) (Negative) Urine Ketones (Negative) Urine Blood (Negative) Urine Nitrite (Negative) Urine Bilirubin (Negative) Urine Urobilinogen (Negative) Ur Leukocyte Esterase (Negative) Urine WBC (Auto) (0-5) /hpf Urine RBC (Auto) (0-4) /hpf U Hyaline Cast (Auto) (0-5) /lpf U Epithel Cells (Auto) (0-5) /lpf Urine Bacteria (Auto) (Negative) Adenovirus (PCR) (NotDetected) B. pertussis DNA (PCR) (NotDetected) B.parapertussis DNA PCR (NotDetected) C. pneumoniae DNA (PCR) (NotDetected) Coronavirus OC43 (PCR) (NotDetected) Coronavirus HKU1 (PCR) (NotDetected) Coronavirus 229E (PCR) (NotDetected) SARS-CoV-2 (PCR) (NotDetected) Coronavirus NL63 (PCR) (NotDetected) Human Metapneumovir PCR (NotDetected) Influenza A (H3) PCR (NotDetected) Influenza Type B (PCR) (NotDetected) M. pneumoniae (PCR) (NotDetected) Parainfluenza 1 (PCR) (NotDetected) Parainfluenza 2 (PCR) (NotDetected) Parainfluenza 3 (PCR) (NotDetected) Parainfluenza 4 (PCR) (NotDetected) RSV (PCR) (NotDetected) Entero/Rhino (PCR) (NotDetected) 06/12/23 Range/Units 16:40 WBC (4.8-10.8) K/ul RBC (4.70-6.10) M/uL Hgb (14.0-18.0) g/dl POC Hgb (14.0-18.0) g/dl Hct (42.0-52.0) % POC Hct (42-52) % MCV (80.0-100.0) fL MCH (25.0-34.0) pg MCHC (32.0-36.0) g/dL RDW Std Deviation (36.4-46.3) fL RDW Coeff of [place] (11.5-14.5) % Plt Count (130-400) K/uL MPV (9.4-12.4) fL Immature Gran % (Auto) % Neut % (Auto) % Lymph % (Auto) % [place] % (Auto) % Eos % (Auto) % Baso % (Auto) % Neut # (Auto) (1.40-6.50) K/uL Lymph # (Auto) (1.20-3.40) K/uL [place] # (Auto) (0.11-0.59) K/uL Eos # (Auto) (0.00-0.50) K/uL Baso # (Auto) (0.00-0.20) K/uL Immature Gran # (Auto) (0.01-0.20) K/uL PT INR VBG pH (7.36-7.41) VBG pCO2 (38-50) mmHg VBG pO2 mmHg VBG HCO3 mmol/L VBG O2 Saturation % VBG Base Excess mEq/L POC Sodium (135-144) mmol/L Sodium (136-145) mmol/L POC Potassium (3.3-5.0) mmol/L Potassium (3.5-5.1) mmol/L POC Chloride (101-112) mmol/L Chloride (98-107) mmol/L Carbon Dioxide (21-32) mmol/L POC Total CO2 (24-31) mmol/L Anion Gap (3-11) POC Anion Gap (16-25) mmol/L POC BUN (7-18) mg/dl BUN (6-23) mg/dl Creatinine (0.6-1.4) mg/dl POC Creatinine (0.6-1.3) mg/dl Est Cr Clr Drug Dosing ml/min Est GFR ( Amer) ml/min Est GFR (Non-Af Amer) ml/min BUN/Creatinine Ratio (10-20) Glucose (70-99(Fasting)) mg/dl POC Glucose (70-99) mg/dl POC Glucose (other) (70-99) mg/dl Lactate (0.4-2.0) mmol/L Calcium (8.6-10.3) mg/dl POC Ioniz Calcium Nat (1.12-1.32) mmol/l Phosphorus (2.5-4.9) mg/dl Magnesium (1.7-2.4) mg/dl Total Bilirubin (0.2-1.0) mg/dl AST (13-39) U/L ALT (7-52) U/L Alkaline Phosphatase (34-104) U/L Troponin I High Sens (0-20) pg/ml Total Protein (6.0-8.3) gm/dl Albumin (3.4-5.0) gm/dl Globulin (2.5-4.0) gm/dl Albumin/Globulin Ratio (0.9-2) Lipase (11-82) U/L Procalcitonin (0-0.5) ng/ml TSH (0.300-4.500) uIu/ml Urine Color Yellow Urine Appearance Clear (Clear) Urine pH 5.5 (4.5-7.5) Ur Specific [place] 1.033 H (1.000-1.030) Urine Protein 2+ H (Negative) Urine Glucose (UA) 3+ H (Negative) Urine Ketones 3+ H (Negative) Urine Blood Trace H (Negative) Urine Nitrite Negative (Negative) Urine Bilirubin Negative (Negative) Urine Urobilinogen Negative (Negative) Ur Leukocyte Esterase Negative (Negative) Urine WBC (Auto) 1-5 (0-5) /hpf Urine RBC (Auto) 0-4 (0-4) /hpf U Hyaline Cast (Auto) 1-5 (0-5) /lpf U Epithel Cells (Auto) 5-10 H (0-5) /lpf Urine Bacteria (Auto) Negative (Negative) Adenovirus (PCR) (NotDetected) B. pertussis DNA (PCR) (NotDetected) B.parapertussis DNA PCR (NotDetected) C. pneumoniae DNA (PCR) (NotDetected) Coronavirus OC43 (PCR) (NotDetected) Coronavirus HKU1 (PCR) (NotDetected) Coronavirus 229E (PCR) (NotDetected) SARS-CoV-2 (PCR) (NotDetected) Coronavirus NL63 (PCR) (NotDetected) Human Metapneumovir PCR (NotDetected) Influenza A (H3) PCR (NotDetected) Influenza Type B (PCR) (NotDetected) M. pneumoniae (PCR) (NotDetected) Parainfluenza 1 (PCR) (NotDetected) Parainfluenza 2 (PCR) (NotDetected) Parainfluenza 3 (PCR) (NotDetected) Parainfluenza 4 (PCR) (NotDetected) RSV (PCR) (NotDetected) Entero/Rhino (PCR) (NotDetected) Administered Medications Sodium Chloride (Nss) 1,000 mls @ 250 mls/hr IV .Q4H [facility] Stop: 07/12/23 15:44 Last Admin: 06/12/23 15:48 Dose: 250 mls/hr Documented By: SAMPSON Insulin Human Regular 250 (units/ Sodium Chloride) 250 mls @ 7.5 mls/hr IV .Q24H [facility]; Protocol Stop: 07/12/23 16:14 Last Admin: 06/12/23 16:34 Dose: 7.5 unit/hr, 7.5 mls/hr Documented By: SAMPSON Co-signed By: HS Discontinued Medications Sodium Chloride (Nss) 500 mls @ 999 mls/hr IV .Q31M [facility] Stop: 06/12/23 13:56 Last Infusion: 06/12/23 15:40 Dose: Infused Documented By: Admin: 06/12/23 13:56 Dose: 999 mls/hr Documented By: CHRIS Famotidine (Pepcid 20mg Iv Push) 20 mg in 5 mls @ 2.5 mls/min IV NOW STA Stop: 06/12/23 13:27 Last Admin: 06/12/23 13:56 Dose: 2.5 mls/min Documented By: CHRIS Sodium Chloride (Nss) 1,000 mls @ 999 mls/hr IV .Q1H1M ONE Stop: 06/12/23 15:10 Last Infusion: 06/12/23 14:33 Dose: Infused Documented By: Admin: 06/12/23 14:15 Dose: 999 mls/hr Documented By: WALE Sodium Chloride (Nss) 1,000 mls @ 999 mls/hr IV .Q1H1M ONE Stop: 06/12/23 15:19 Last Infusion: 06/12/23 15:40 Dose: Infused Documented By: Admin: 06/12/23 14:33 Dose: 999 mls/hr Documented By: MARIANNE Cefepime HCl (Maxipime) 2,000 mg in 20 mls @ 5 mls/min IV NOW STA; Protocol Stop: 06/12/23 15:14 Last Admin: 06/12/23 15:25 Dose: 5 mls/min Documented By: SAMPSON Metoprolol Tartrate (Metoprolol Tartrate 1 Mg/Ml Vial) 5 mg IV NOW STA Stop: 06/12/23 15:09 Last Admin: 06/12/23 15:25 Dose: 5 mg Documented By: SAMPSON Metoprolol Tartrate (Metoprolol Tartrate 1 Mg/Ml Vial) 5 mg IV NOW STA Stop: 06/12/23 15:35 Last Admin: 06/12/23 15:48 Dose: 5 mg Documented By: SAMPSON Rivera (Dka Goal Range 150-250 Mg/Dl) 1 each N/A ONE ONE Stop: 06/12/23 16:03 Last Admin: 06/12/23 16:34 Dose: 1 each Documented By: SAMPSON Seymouraneous (Stat Iv Infusion Titration Per Protocol) 1 each N/A NOW STA Stop: 06/12/23 16:03 Last Admin: 06/12/23 16:34 Dose: 1 each Documented By: SAMPSON Ondansetron HCl (Ondansetron Inj 2 Mg/Ml 2 Ml Vial) 4 mg IV NOW STA Stop: 06/12/23 13:27 Last Admin: 06/12/23 13:56 Dose: 4 mg Documented By: CHRIS Oseltamivir Phosphate (Oseltamivir Phosphate 75 Mg Cap) 75 mg PO NOW STA; Protocol Stop: 06/12/23 15:35 Last Admin: 06/12/23 15:48 Dose: 75 mg Documented By: SAMPSON Imaging Data Radiologist's Impression: Chest X-Ray 06/12/23 13:27 SINGLE VIEW CHEST CLINICAL HISTORY: Dyspnea. Generalized abdominal pain. FINDINGS: 2 AP, portable, upright chest radiographs are compared to study dated 09/19/2020 and correlated with chest CT dated 05/30/2023. The heart is mildly enlarged noting atherosclerotic calcification of the thoracic aorta. The pulmonary vasculature is noncongested. There is mild emphysematous change. The lungs and pleural spaces are clear. No pneumothorax is seen. The skeletal structures are osteopenic. The bony thorax is grossly intact. IMPRESSION: No acute cardiopulmonary abnormality. ACT 112: Negative or not required by law. Electronically signed by: Roman Kingsley M.D. 06/12/2023 2:40 PM Discharge Plan Visit Data Chief Complaint: Vomiting Stated Complaint: ABD PAIN, VOMIT ED Provider: Lester Tate Discharge Problem: Influenza A, Atrial fibrillation with rapid ventricular response, Acute dehydration, DKA (diabetic ketoacidosis) Forms Stand Alone Forms: My [facility] [employer] Prescriptions Prescriptions: No Action metformin 1,000 mg tablet 1,000 mg PO BID Qty: 180 3RF metoprolol succinate 50 mg tablet extended release 24 hr 50 mg PO DAILY Qty: 90 3RF rosuvastatin 20 mg tablet 20 mg PO DAILY Qty: 90 3RF Jardiance 10 mg tablet 10 mg PO DAILY Qty: 90 3RF aspirin 81 mg tablet,delayed release (DR/EC) 81 mg PO QAM sildenafil [Viagra] 100 mg tablet 100 mg PO DAILY PRN (Reason: sexual activity) Qty: 30 0RF Rx Instructions: administer 30 minutes to 4 hours before activity Rybelsus 7 mg tablet 7 mg PO BID Referrals Referrals: Matilde Lucero MD [Primary Care Provider] - Discharge Problem: DKA (diabetic ketoacidosis) Qualifiers: Diabetes mellitus type: type 2 Diabetes mellitus complication detail: without coma Qualified Code(s): E11.10 - Type 2 diabetes mellitus with ketoacidosis without coma
[2023-06-12 14:27] LABS: iSTAT Hemoglobin 22.4 g/dl (14.0-18.0); iSTAT Ionized Calcium 1.13 mmol/l (1.12-1.32); iSTAT Potassium 4.9 mmol/L (3.3-5.0)
[2023-06-12 14:39] LABS: Hematocrit (blood only) 62.8 % (42.0-52.0); Hemoglobin 21.4 g/dl (14.0-18.0); Mean Corpuscular Hgb Conc 34.1 g/dL (32.0-36.0); Mean Corpuscular Volume 82.1 fL (80.0-100.0); Mean Platelet Volume 9.6 fL (9.4-12.4); Platelet Count 251 K/uL (130-400); RDW Coefficient of Variation 15.4 % (11.5-14.5); RDW Standard Deviation 39.7 fL (36.4-46.3); Red Blood Count 7.65 M/uL (4.70-6.10); White Blood Count 15.23 K/ul (4.8-10.8)
[2023-06-12 14:40] LABS: Basophils # (auto) 0.08 K/uL (0.00-0.20); Basophils % (auto) 0.5 %; Eosinophils # (auto) 0.01 K/uL (0.00-0.50); Eosinophils % (auto) 0.1 %; Immature Granulocytes # (auto) 0.09 K/uL (0.01-0.20); Immature Granulocytes % (auto) 0.6 %; Lymphocytes # (auto) 0.49 K/uL (1.20-3.40); Lymphocytes % (auto) 3.2 %; Monocytes # (auto) 2.32 K/uL (0.11-0.59); Monocytes % (auto) 15.2 %; Neutrophils # (auto) 12.24 K/uL (1.40-6.50); Neutrophils % (auto) 80.4 %
--- NOTE | 2023-06-12 14:42 | XRay Report ---
SINGLE VIEW CHEST CLINICAL HISTORY: Dyspnea. Generalized abdominal pain. FINDINGS: 2 AP, portable, upright chest radiographs are compared to study dated 09/19/2020 and correlat ed with chest CT dated 05/30/2023. The heart is mildly enlarged noting atherosclerotic calcification of the thoracic aorta. The pulmonary vasculature is noncongested. There is mild emphysematous change. The lungs and pleural spaces are clear. No pneumothorax is seen. The skeletal structures are osteope [place]. The bony thorax is grossly intact. IMPRESSION: No acute cardiopulmonary abnormality. ACT 112: Negative or not required by law. Electronically signed by: Roman Kingsley M.D. 06/12/2023 2:40 PM
[2023-06-12 14:46] LABS: Albumin Globulin Ratio 1.2 (0.9-2); Albumin Level 4.5 gm/dl (3.4-5.0); BUN Creatinine Ratio 31.7 (10-20); Bilirubin,Total 1.2 mg/dl (0.2-1.0); Calcium 9.7 mg/dl (8.6-10.3); Creatinine Clr Calc Pharmacy 57.6 ml/min; Est GFR (African American) 62.9 ml/min; Est GFR (Non-African American) 54.3 ml/min; Globulin 3.9 gm/dl (2.5-4.0); Magnesium 2.7 mg/dl (1.7-2.4); Potassium 5.1 mmol/L (3.5-5.1); Total Protein 8.4 gm/dl (6.0-8.3)
[2023-06-12 14:52] LABS: Troponin I High Sensitivity 62.8 pg/ml (0-20)
[2023-06-12 14:58] LABS: Thyroid Stimulating Hormone 1.564 uIu/ml (0.300-4.500)
[2023-06-12] MEDS ORDERED: METOPROLOL TARTRATE 1 MG/ML VIAL IV STA ×3 (15:08→18:17)
[2023-06-12] MEDS ORDERED: CEFEPIME 2,000 MG/20 ML VIAL IV STA (15:11)
--- NOTE | 2023-06-12 15:22 | Electrocardiogram Report ---
Test Reason : Blood Pressure : / mmHG Vent. Rate : 165 BPM Atrial Rate : 330 BPM P-R Int : 000 ms QRS Dur : 072 ms QT Int : 290 ms P-R-T Axes : -76 059 -62 degrees QTc Int : 480 ms Atrial flutter with variable A-V block Nonspecific ST abnormality Abnormal ECG When compared with ECG of 14-SEP-2020 09:44, Atrial flutter has replaced Sinus rhythm Vent. rate has increased BY [address] now depressed in Inferior leads ST now depressed in Anterolateral leads Nonspecific T wave abnormality, worse in Inferior leads Nonspecific T wave abnormality now evident in Lateral leads Confirmed by Elder Wood ([id number]) on 06/12/2023 3:22:07 PM Referred By: Confirmed By:Steven Wood
[2023-06-12 15:23] LABS: Base Excess VBG -14.6 mEq/L; HCO3 VBG 14 mmol/L; Oxygen Saturation VBG 65.1 %; PCO2 VBG 39 mmHg (38-50); PO2 VBG 44 mmHg; pH VBG 7.15 (7.36-7.41)
[2023-06-12 15:26] LABS: Adenovirus PCR Not Detected (NotDetected); Bordetella parapertussis PCR Not Detected (NotDetected); Bordetella pertussis PCR Not Detected (NotDetected); Chlamydia pneumoniae PCR Not Detected (NotDetected); Coronavirus 229E PCR Not Detected (NotDetected); Coronavirus CoV-2 (COVID19)PCR Not Detected (NotDetected); Coronavirus HKU1 PCR Not Detected (NotDetected); Coronavirus NL63 PCR Not Detected (NotDetected); Coronavirus OC43PCR Not Detected (NotDetected); Human Metapneumovirus PCR Not Detected (NotDetected); Influenza B PCR Not Detected (NotDetected); Mycoplasma pneumoniae PCR Not Detected (NotDetected); Parainfluenza Virus 1 PCR Not Detected (NotDetected); Parainfluenza Virus 2 PCR Not Detected (NotDetected); Parainfluenza Virus 3 PCR Not Detected (NotDetected); Parainfluenza Virus 4 PCR Not Detected (NotDetected); Respiratory Syncytial VirusPCR Not Detected (NotDetected); Rhinovirus/Enterovirus PCR Not Detected (NotDetected)
[2023-06-12 15:33] LABS: Influenza A (H3) PCR DETECTED (NotDetected)
[2023-06-12] MEDS ORDERED: OSELTAMIVIR PHOSPHATE 75 MG CAP PO STA (15:34)
[2023-06-12] MEDS: SODIUM CHLORIDE 0.9% 1,000 ML IV SCH ×2 (15:48→18:08)
[2023-06-12 15:54] LABS: INR 0.9 (0.9-1.1); Prothrombin Time 10.4 Seconds (9.0-12.0)
[2023-06-12] MEDS ORDERED: CARBOHYDRATES FOR HYPOGLYCEMIA PO PRN (16:02)
[2023-06-12] MEDS ORDERED: STAT IV Infusion **Titration per Protocol STA ×2 (16:02→19:40)
[2023-06-12] MEDS ORDERED: GLUCAGON FOR INJ 1 MG VIAL SQ PRN (16:02)
[2023-06-12] MEDS ORDERED: GLUCOSE 40% GEL 15 GM TUBE PO PRN (16:02)
[2023-06-12] MEDS ORDERED: GLUCOSE 10 TAB/TUBE PO PRN (16:02)
[2023-06-12] MEDS ORDERED: DKA GOAL RANGE 150-250 mg/dl ONE ×2 (16:02→19:40)
--- NOTE | 2023-06-12 16:12 | History & Physical Report ---
Date of Service June 12, 2023 Assessment & Plan (1) High anion gap metabolic acidosis: (2) Admitted to intensive care unit: (3) DKA (diabetic ketoacidosis): (4) Acute dehydration: (5) Influenza A: (6) Dyslipidemia: (7) Hypertension: (8) ION (acute kidney injury): (9) Type 2 diabetes mellitus with peripheral neuropathy: (10) Atrial fibrillation with rapid ventricular response: Plan Diabetic ketoacidosis/high anion gap metabolic acidosis- Anion gap 23, glucose 457, WBC 15.23, hemoglobin 21.4, hematocrit 62.8 Secondary to acute dehydration and physiologic stress from influenza A Admit to intensive care unit with consult to ICU team DKA order set, with endpoint normal anion gap Received 2.5 L of normal saline from the ED, will continue at 250 mL/h, until glucose is 250, when fluids will be changed to D5 half-normal saline with 20 mEq potassium chloride at 250 mls per hour serial BMP, magnesium, VBG and phosphorus levels every 2 hours until improved, then taper to 4 hours, and then 4 times daily Atrial fibrillation with RVR/CAD/hypertension- Improved rate controlled Lopressor 5 mg IV x 2 Continue metoprolol succinate 50 mg daily Continue aspirin Unsure why patient has not been on anticoagulation, will will likely be started at this point. Will leave that to the ICU team Influenza A- Continue Tamiflu for full 5-day course, already received first dose in the ED All laboratories are showing hemoconcentration, and will follow serial CBC with differential, chemistry profile and magnesium in addition to labs as noted above Symptomatic treatment as noted above Diabetes mellitus- Hold metformin and semaglutide Placed on Accu-Cheks with SSI and ICU hyperglycemic protocol History of Present Illness Chief Complaint: The patient presents to the emergency department with complaint of nausea, vomiting, diarrhea and progressively worsening weakness over the past 4 to 5 days. Primary Care Provider: Matilde Lucero MD The patient is a 62-year-old male with a past medical history including atrial fibrillation with RVR, obese mellitus type II, diabetic peripheral neuropathy, history of atrial fibrillation, cervical disc disorder, CAD, dyslipidemia, and hypertension. Patient presented with 4 to 5 days of persistent and progressive nausea, vomiting, diarrhea and generalized weakness. [employer] testing in the emergency department was positive for influenza A. Laboratories otherwise consistent with DKA and hemoconcentration due to severe dehydration. Anion gap of 23, advised the starting of an insulin drip with and to target a normal anion gap, and admission to the ICU. Allergies Allergy/AdvReac Type Severity Reaction Status Date / Time No Known Allergies Allergy Verified 06/12/23 16:05 Home Medications Medication Instructions Recorded Confirmed Type aspirin 81 mg tablet,delayed 81 mg PO QAM 05/11/19 06/12/23 History release sildenafil 100 mg tablet (Viagra) 100 mg PO DAILY PRN sexual 08/28/21 06/12/23 Rx activity #30 tabs metformin 1,000 mg tablet 1,000 mg PO BID #180 tabs 01/11/23 06/12/23 Rx metoprolol succinate 50 mg 50 mg PO DAILY #90 tabs 01/11/23 06/12/23 Rx tablet,extended release 24 hr rosuvastatin 20 mg tablet 20 mg PO DAILY #90 tabs 01/11/23 06/12/23 Rx empagliflozin 10 mg tablet 10 mg PO DAILY #90 tabs 03/04/23 06/12/23 Rx (Jardiance) semaglutide 7 mg tablet (Rybelsus) 7 mg PO BID 06/12/23 06/12/23 History Past Med/Surg History Medical History (Updated 06/12/23 @ 21:20 by Matt Curiel MD) Type 2 diabetes mellitus with peripheral neuropathy Arthritic-like pain CAD (coronary artery disease) follows with Dr. Reed Atrial fibrillation happened during [place] in 2016 > controlled Hydrocele NSTEMI (non-ST elevation myocardial infarction) August 2016> [facility] > 2 stents Dyslipidemia Hypertension Surgical History History of hydrocelectomy right hydrocelectomy on 09/19/2020. lipoma also removed from the cord. Surgeon was Dr. Miko Wells History of tonsillectomy [place] teeth extracted History of surgical procedure on mouth 1979> cyst on lip removed History of heart artery stent x2 LAD > [facility] > August 2016 History of surgery on upper extremity bone cyst right upper arm> 1970's Family History Father Alzheimer disease Mother Diabetes Social History Smoking Status: Former smoker Tobacco Type: Cigarettes packs per day: 1; Second Hand Exposure: No; Do You Dip or Chew Tobacco: No; Hx Alcohol Use: No Hx Substance Use: Yes Last Used Substance Other:: 1 month ago Substance Use Type Other:: daily use small amt > vapes Preferred Language: Persian Communication Ability: Effective Visual Impairment: No Limitations Hearing Ability: Normal Housing Manager Required: No Beliefs That Will Affect Care: None marital status: Current Living Situation: Spouse current occupational status: employed Feels Safe at Home: Yes Physical Activity Frequency: Does not Exercise Seatbelt Use: always Assistive Devices: Glasses Review of Systems Review of Systems: The patient denies chest pain, palpitations, shortness of breath, dyspnea on exertion, cough, lower extremity swelling, sore throat, sweats, blood in urine or stool, dysuria, urinary frequency or urgency, memory loss, loss of consciousness, rash, abnormal bruising or bleeding, imbalance, focal weakness, numbness or tingling in arms or legs, generalized arthralgias or myalgias, back or neck pain, or night sweats. The review of systems is otherwise negative other than for that already noted above, and at least 10 systems have been reviewed. Physical Exam Physical Exam: The patient is awake, alert and oriented 3, well developed and well nourished, normocephalic and atraumatic, lying in bed and in no acute distress. Appears significantly better after IV fluids HEENT--PERRL, EOMI, mucous membranes and oropharynx dry. Neck--supple. No JVD. No bruits. Thyroid normal, trachea midline, no adenopathy. Heart--normal S1 and S2. No murmurs, rubs or gallops. Lungs--clear bilaterally, no respiratory distress, no accessory muscle use. Abdomen--normal bowel sounds and soft. Nontender. Nondistended, no hernias or masses, no organomegaly. Extremities--no cyanosis or clubbing. No edema. Dermatologic--normal skin turgor, normal color, no abnormal lymph nodes, no rash. Neurologic--cranial nerves II through XII grossly intact. Rheumatologic--normal range of motion. Psychiatric--normal affect. Results & Data Results & Data Vital Signs (Past 12 Hours) Vital Signs Temp Pulse Pulse Resp BP BP Pulse Ox 06/12/23 16:01 115 H 24 94 06/12/23 16:01 129/98 06/12/23 16:00 117 H 15 100 06/12/23 15:56 128/87 06/12/23 15:56 115 H 21 98 06/12/23 15:50 147/113 H 06/12/23 15:50 132 H 18 98 06/12/23 15:48 126 H 134/110 H 06/12/23 15:45 134/110 H 06/12/23 15:45 126 H 91 06/12/23 15:40 133/103 H 06/12/23 15:40 125 H 92 06/12/23 15:35 124 H 24 94 06/12/23 15:35 134/94 06/12/23 15:31 142/107 H 06/12/23 15:31 134 H 98 06/12/23 15:30 248/211 H 06/12/23 15:30 140 H 22 91 06/12/23 15:20 161 H 23 99 06/12/23 15:15 160 H 99 06/12/23 15:15 133/104 H 06/12/23 15:14 145/103 H 06/12/23 15:14 157 H 98 06/12/23 15:10 146 H 06/12/23 15:00 170 H 06/12/23 14:50 158 H 24 06/12/23 14:46 167/90 H 06/12/23 14:46 160 H 06/12/23 14:40 161 H 06/12/23 14:30 156 H 24 06/12/23 14:26 162 H 06/12/23 14:20 159 H 06/12/23 14:19 160 H 22 147/117 H 97 06/12/23 14:18 161 H 20 06/12/23 14:14 97 06/12/23 13:23 36.3 C L 107 H 22 109/76 98 O2 Del Method 06/12/23 16:01 06/12/23 16:01 06/12/23 16:00 06/12/23 15:56 06/12/23 15:56 06/12/23 15:50 06/12/23 15:50 06/12/23 15:48 06/12/23 15:45 06/12/23 15:45 06/12/23 15:40 06/12/23 15:40 06/12/23 15:35 06/12/23 15:35 06/12/23 15:31 06/12/23 15:31 06/12/23 15:30 06/12/23 15:30 06/12/23 15:20 06/12/23 15:15 06/12/23 15:15 06/12/23 15:14 06/12/23 15:14 06/12/23 15:10 06/12/23 15:00 06/12/23 14:50 06/12/23 14:46 06/12/23 14:46 06/12/23 14:40 06/12/23 14:30 06/12/23 14:26 06/12/23 14:20 06/12/23 14:19 Room Air 06/12/23 14:18 06/12/23 14:14 Room Air 06/12/23 13:23 Laboratory Results Laboratory Results WBC 15.23 K/ul (4.8-10.8) H 06/12/23 13:15 RBC 7.65 M/uL (4.70-6.10) H 06/12/23 13:15 Hgb 21.4 g/dl (14.0-18.0) H 06/12/23 13:15 POC Hgb 22.4 g/dl (14.0-18.0) H* 06/12/23 14:14 Hct 62.8 % (42.0-52.0) H 06/12/23 13:15 POC Hct 66 % (42-52) H* 06/12/23 14:14 MCV 82.1 fL (80.0-100.0) 06/12/23 13:15 MCH 28.0 pg (25.0-34.0) 06/12/23 13:15 MCHC 34.1 g/dL (32.0-36.0) 06/12/23 13:15 RDW Std Deviation 39.7 fL (36.4-46.3) 06/12/23 13:15 RDW Coeff of [place] 15.4 % (11.5-14.5) H 06/12/23 13:15 Plt Count 251 K/uL (130-400) 06/12/23 13:15 MPV 9.6 fL (9.4-12.4) 06/12/23 13:15 Immature Gran % (Auto) 0.6 % 06/12/23 13:15 Neut % (Auto) 80.4 % 06/12/23 13:15 Lymph % (Auto) 3.2 % 06/12/23 13:15 [place] % (Auto) 15.2 % 06/12/23 13:15 Eos % (Auto) 0.1 % 06/12/23 13:15 Baso % (Auto) 0.5 % 06/12/23 13:15 Neut # (Auto) 12.24 K/uL (1.40-6.50) H 06/12/23 13:15 Lymph # (Auto) 0.49 K/uL (1.20-3.40) L 06/12/23 13:15 [place] # (Auto) 2.32 K/uL (0.11-0.59) H 06/12/23 13:15 Eos # (Auto) 0.01 K/uL (0.00-0.50) 06/12/23 13:15 Baso # (Auto) 0.08 K/uL (0.00-0.20) 06/12/23 13:15 Immature Gran # (Auto) 0.09 K/uL (0.01-0.20) 06/12/23 13:15 PT 10.4 Seconds (9.0-12.0) 06/12/23 15:21 INR 0.9 (0.9-1.1) 06/12/23 15:21 VBG pH 7.15 (7.36-7.41) L 06/12/23 15:07 VBG pCO2 39 mmHg (38-50) 06/12/23 15:07 VBG pO2 44 mmHg 06/12/23 15:07 VBG HCO3 14 mmol/L 06/12/23 15:07 VBG O2 Saturation 65.1 % 06/12/23 15:07 VBG Base Excess -14.6 mEq/L 06/12/23 15:07 POC Sodium 130 mmol/L (135-144) L 06/12/23 14:14 Sodium 129 mmol/L (136-145) L 06/12/23 13:15 POC Potassium 4.9 mmol/L (3.3-5.0) 06/12/23 14:14 Potassium 5.1 mmol/L (3.5-5.1) 06/12/23 13:15 POC Chloride 98 mmol/L (101-112) L 06/12/23 14:14 Chloride 90 mmol/L (98-107) L 06/12/23 13:15 Carbon Dioxide 16 mmol/L (21-32) L 06/12/23 13:15 POC Total CO2 17 mmol/L (24-31) L 06/12/23 14:14 Anion Gap 23 (3-11) H 06/12/23 13:15 POC Anion Gap 20.0 mmol/L (16-25) 06/12/23 14:14 POC BUN 45 mg/dl (7-18) H 06/12/23 14:14 BUN 44 mg/dl (6-23) H 06/12/23 13:15 Creatinine 1.39 mg/dl (0.6-1.4) 06/12/23 13:15 POC Creatinine 1.0 mg/dl (0.6-1.3) 06/12/23 14:14 Est Cr Clr Drug Dosing 57.6 ml/min 06/12/23 13:15 Est GFR ( Amer) 62.9 ml/min 06/12/23 13:15 Est GFR (Non-Af Amer) 54.3 ml/min 06/12/23 13:15 BUN/Creatinine Ratio 31.7 (10-20) H 06/12/23 13:15 Glucose 457 mg/dl (70-99(Fasting)) H* 06/12/23 13:15 POC Glucose 173 mg/dl (70-99) H 06/12/23 21:05 POC Glucose (other) 430 mg/dl (70-99) H* 06/12/23 14:14 Lactate 2.0 mmol/L (0.4-2.0) 06/12/23 17:30 Calcium 9.7 mg/dl (8.6-10.3) 06/12/23 13:15 POC Ioniz Calcium Nat 1.13 mmol/l (1.12-1.32) 06/12/23 14:14 Phosphorus 3.6 mg/dl (2.5-4.9) 06/12/23 15:20 Magnesium 2.7 mg/dl (1.7-2.4) H 06/12/23 13:15 Total Bilirubin 1.2 mg/dl (0.2-1.0) H 06/12/23 13:15 AST 13 U/L (13-39) 06/12/23 13:15 ALT 12 U/L (7-52) 06/12/23 13:15 Alkaline Phosphatase 69 U/L (34-104) 06/12/23 13:15 Troponin I High Sens 48.5 pg/ml (0-20) H D 06/12/23 15:20 Total Protein 8.4 gm/dl (6.0-8.3) H 06/12/23 13:15 Albumin 4.5 gm/dl (3.4-5.0) 06/12/23 13:15 Globulin 3.9 gm/dl (2.5-4.0) 06/12/23 13:15 Albumin/Globulin Ratio 1.2 (0.9-2) 06/12/23 13:15 Lipase 37 U/L (11-82) 06/12/23 13:15 Procalcitonin 0.11 ng/ml (0-0.5) 06/12/23 13:55 TSH 1.564 uIu/ml (0.300-4.500) 06/12/23 13:15 Urine Color Yellow 06/12/23 16:40 Urine Appearance Clear (Clear) 06/12/23 16:40 Urine pH 5.5 (4.5-7.5) 06/12/23 16:40 Ur Specific [place] 1.033 (1.000-1.030) H 06/12/23 16:40 Urine Protein 2+ (Negative) H 06/12/23 16:40 Urine Glucose (UA) 3+ (Negative) H 06/12/23 16:40 Urine Ketones 3+ (Negative) H 06/12/23 16:40 Urine Blood Trace (Negative) H 06/12/23 16:40 Urine Nitrite Negative (Negative) 06/12/23 16:40 Urine Bilirubin Negative (Negative) 06/12/23 16:40 Urine Urobilinogen Negative (Negative) 06/12/23 16:40 Ur Leukocyte Esterase Negative (Negative) 06/12/23 16:40 Urine WBC (Auto) 1-5 /hpf (0-5) 06/12/23 16:40 Urine RBC (Auto) 0-4 /hpf (0-4) 06/12/23 16:40 U Hyaline Cast (Auto) 1-5 /lpf (0-5) 06/12/23 16:40 U Epithel Cells (Auto) 5-10 /lpf (0-5) H 06/12/23 16:40 Urine Bacteria (Auto) Negative (Negative) 06/12/23 16:40 Urine Osmolality 778 mOsm/kg (500-800) 06/12/23 16:40 Ur Random Creatinine 41.8 mg/dl 06/12/23 16:40 Ur Random Sodium 25 mmol/L 06/12/23 16:40 Ur Random Potassium 25.0 mmol/L 06/12/23 16:40 Ur Random Chloride 25 mmol/L 06/12/23 16:40 Nasal Screen MRSA (PCR) Negative (Negative) 06/12/23 19:19 Adenovirus (PCR) Not Detected (NotDetected) 06/12/23 13:50 B. pertussis DNA (PCR) Not Detected (NotDetected) 06/12/23 13:50 B.parapertussis DNA PCR Not Detected (NotDetected) 06/12/23 13:50 C. pneumoniae DNA (PCR) Not Detected (NotDetected) 06/12/23 13:50 Coronavirus OC43 (PCR) Not Detected (NotDetected) 06/12/23 13:50 Coronavirus HKU1 (PCR) Not Detected (NotDetected) 06/12/23 13:50 Coronavirus 229E (PCR) Not Detected (NotDetected) 06/12/23 13:50 SARS-CoV-2 (PCR) Not Detected (NotDetected) 06/12/23 13:50 Coronavirus NL63 (PCR) Not Detected (NotDetected) 06/12/23 13:50 Human Metapneumovir PCR Not Detected (NotDetected) 06/12/23 13:50 Influenza A (H3) PCR DETECTED (NotDetected) A* 06/12/23 13:50 Influenza Type B (PCR) Not Detected (NotDetected) 06/12/23 13:50 M. pneumoniae (PCR) Not Detected (NotDetected) 06/12/23 13:50 Parainfluenza 1 (PCR) Not Detected (NotDetected) 06/12/23 13:50 Parainfluenza 2 (PCR) Not Detected (NotDetected) 06/12/23 13:50 Parainfluenza 3 (PCR) Not Detected (NotDetected) 06/12/23 13:50 Parainfluenza 4 (PCR) Not Detected (NotDetected) 06/12/23 13:50 RSV (PCR) Not Detected (NotDetected) 06/12/23 13:50 Entero/Rhino (PCR) Not Detected (NotDetected) 06/12/23 13:50 Impressions Chest X-Ray 06/12/23 13:27 SINGLE VIEW CHEST CLINICAL HISTORY: Dyspnea. Generalized abdominal pain. FINDINGS: 2 AP, portable, upright chest radiographs are compared to study dated 09/19/2020 and correlated with chest CT dated 05/30/2023. The heart is mildly enlarged noting atherosclerotic calcification of the thoracic aorta. The pulmonary vasculature is noncongested. There is mild emphysematous change. The lungs and pleural spaces are clear. No pneumothorax is seen. The skeletal structures are osteopenic. The bony thorax is grossly intact. IMPRESSION: No acute cardiopulmonary abnormality. ACT 112: Negative or not required by law. Electronically signed by: Roman Kingsley M.D. 06/12/2023 2:40 PM Code Status & VTE Plan Code Status Full code VTE Prophylaxis Plan VTE Prophylaxis will be ordered: Yes PG Care Time/CCT Total # of Minutes Spent Total Time Spent with Patient: Total time spent is greater than 50% in coordination of care (as documented) at patient's floor/unit and/or counseling patient: Coding Level of Care Code 62987 INT INP/OBS CARE 3/75MIN Diagnoses High anion gap metabolic acidosis E87.29 Admitted to intensive care unit Z78.9 DKA (diabetic ketoacidosis) E11.10 Diabetes mellitus complication detail: without coma Diabetes mellitus type: type 2 Acute dehydration E86.0 Influenza A J10.1 Dyslipidemia E78.5 Hypertension I10 ION (acute kidney injury) N17.9 Type 2 diabetes mellitus with peripheral neuropathy E11.42 Atrial fibrillation with rapid ventricular response I48.91 (3) DKA (diabetic ketoacidosis) Diabetes mellitus complication detail: without coma Diabetes mellitus type: type 2 Qualified Code(s): E11.10 - Type 2 diabetes mellitus with ketoacidosis without coma
[2023-06-12] MEDS ORDERED: INSULIN REGULAR 250 UNITS in SODIUM CHLORIDE 0.9% 247.5 ML IV SCH ×2 (16:15→19:45)
--- NOTE | 2023-06-12 16:27 | Critical Care Consultation ---
Date of Consultation June 12, 2023 Assessment & Plan (1) DKA (diabetic ketoacidosis): (2) Atrial fibrillation with rapid ventricular response: (3) Influenza A: (4) Type 2 diabetes mellitus with peripheral neuropathy: (5) ION (acute kidney injury): (6) High anion gap metabolic acidosis: Plan Reason Critically Ill: 62-year-old male past medical history of A-fib not on anticoagulation, diabetes, COPD presented to the hospital with nausea vomiting and diarrhea. He was found to be in DKA with severe metabolic acidosis. Sent to ICU for further care Neuro - [facility] ICU: Negative Cardiac - -- A-fib/flutter with RVR TSH 1.56 On metoprolol at home [id number] 3, patient has declined anticoagulation in the past --Elevated troponin Likely type II RI Continue to trend EKG 06/12/2023, 1:47 PM: A flutter, heart rate 165, QTc 480, normal axis, no ST- T wave changes Respiratory - --Influenza A positive Saturating well on room air Complete the course of oseltamivir -- Pulmonary nodule Small right lower lobe Next screening CAT scan in May 2024 --History of COPD Not on any inhalers at home [id number] smoking history, quit at the age of 52 GI - -- Nausea/vomiting and diarrhea Likely from influenza Denies any abdominal pain RENAL/LYTES - -- ION Follow-up urine lites Monitor BUN/creatinine Avoid nephrotoxic medications Strict ins and outs -- HAGMA Delta-delta: Between 1-2, as needed ion gap Likely sec to DKA plus lactic acidosis urine lytes VBG pH 7.15 Monitor --Pseudohyponatremia Corrected sodium 138 ENDO - -- DKA Continue with insulin drip until anion gap closes Decreasing blood glucose no more than 100 in an hour Replace potassium IV when potassium level between 3.3-5.3 BMP every 4 hours Continue with IV fluids HEME - -- Leukocytosis with left-sided shift Likely reactive Follow-up septic workup Continue with broad-spectrum antibiotics for the time being ID - -- Chest x-ray clean No clear source of infection, urine clean Lipase within normal limit Procalcitonin 0.11 --Prophylaxis VTE: Heparin GI: Pantoprazole Lines: Peripheral Diet: N.p.o. Plan: Continue with insulin drip Do not decrease their sugar more than 80/h Give another bolus of a liter of IV fluid. If the heart rate is still not controlled then start the patient on Cardizem drip or give pushes of metoprolol I have personally spent 59 minutes of critical care time in the direct management of this patient. This is a life/limb threatening event. This includes time spent evaluating patient, direct bedside care, chart review, placing orders, interpretation of diagnostic studies, discussion with consultants, patient, and family members, as well as other required patient management activities. This time is exclusive of all separately billable procedures, and teaching time and separate from and in addition to any other critical care service time. History of Present Illness History of Present Illness 62-year-old male present to the hospital with complaints of nausea vomiting as well as coughing and bringing up clear phlegm Past medical history: COPD, hypertension, A-fib not on anticoagulation, dyslipidemia, coronary artery disease ICU was consulted for metabolic acidosis and DKA. The time of examinations patient systolic blood pressure was in the 120s, heart rate in the high 1 teens to low 120s He said he is feeling better since he came to the hospital and got fluids. He has been having issues with diarrhea which has stopped since Saturday, it was loose. Nonbloody Has been also complaining of burping and nausea. No vomit Has been coughing up and bringing up clear phlegm. Denies any chest congestion Denies any fever or chills No unusual headache or blurry vision Denies any dizziness Social history: [id number] smoking history, quit at the age of 52. 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 No history of lung cancer in the family Allergies Allergy/AdvReac Type Severity Reaction Status Date / Time No Known Allergies Allergy Verified 06/12/23 16:05 Home Medications Medication Instructions Recorded Confirmed Type aspirin 81 mg tablet,delayed 81 mg PO QAM 05/11/19 06/12/23 History release sildenafil 100 mg tablet (Viagra) 100 mg PO DAILY PRN sexual 08/28/21 06/12/23 Rx activity #30 tabs metformin 1,000 mg tablet 1,000 mg PO BID #180 tabs 01/11/23 06/12/23 Rx metoprolol succinate 50 mg 50 mg PO DAILY #90 tabs 01/11/23 06/12/23 Rx tablet,extended release 24 hr rosuvastatin 20 mg tablet 20 mg PO DAILY #90 tabs 01/11/23 06/12/23 Rx empagliflozin 10 mg tablet 10 mg PO DAILY #90 tabs 03/04/23 06/12/23 Rx (Jardiance) semaglutide 7 mg tablet (Rybelsus) 7 mg PO BID 06/12/23 06/12/23 History Patient History Medical History (Updated 06/12/23 @ 17:40 by Maegan Becker MD, [facility]) Type 2 diabetes mellitus with peripheral neuropathy Arthritic-like pain CAD (coronary artery disease) follows with Dr. Reed Atrial fibrillation happened during RI in 2016 > controlled Hydrocele NSTEMI (non-ST elevation myocardial infarction) August 2016> [facility] > 2 stents Dyslipidemia Hypertension Surgical History History of hydrocelectomy right hydrocelectomy on 09/19/2020. lipoma also removed from the cord. Surgeon was Dr. Miko Wells History of tonsillectomy [place] teeth extracted History of surgical procedure on mouth 1979> cyst on lip removed History of heart artery stent x2 LAD > [facility] > August 2016 History of surgery on upper extremity bone cyst right upper arm> 1970's Family History Father Alzheimer disease Mother Diabetes Social History Smoking Status: Former smoker Tobacco Type: Cigarettes packs per day: 1; Second Hand Exposure: Yes (as kid); Do You Dip or Chew Tobacco: No; Hx Alcohol Use: Yes Alcohol type: hard liquor Hx Substance Use: Yes Substance Use Type Other:: daily use small amt > vapes Preferred Language: Jordanian Communication Ability: Effective Visual Impairment: No Limitations Hearing Ability: Normal Filtration Operator Required: No Beliefs That Will Affect Care: None marital status: Current Living Situation: Spouse current occupational status: employed Feels Safe at Home: Yes Physical Activity Frequency: Does not Exercise Seatbelt Use: always Assistive Devices: Glasses Review of Systems 2 Review of Systems: All systems reviewed & are unremarkable except as noted in HPI & below Physical Exam 2 Physical Exam: Constitutional: No acute distress HEENT: EOMI, PERRLA Respiratory system: Good air entry bilaterally, no wheeze, no rhonchi, mild crackles bilateral lower lobes CVS: S1-S2 positive, no murmurs or gallops Abdomen: Soft, nontender, nondistended, positive bowel sounds x4 Extremities: +2 pulses bilaterally radialis/ dorsalis pedis, no cyanosis, no edema Neuro: Awake alert oriented x3 Psych: Normal mood and affect G/U: No Acuna Skin: no rashes, warm and dry Lymphatic: no cervical or axillary lymphadenopathy Results & Data Results & Data Vital Signs (Past 12 Hours) Vital Signs Temp Pulse Pulse Resp BP BP Pulse Ox 06/12/23 16:12 112 H 147/102 H 06/12/23 16:01 115 H 24 94 06/12/23 16:01 129/98 06/12/23 16:00 117 H 15 100 06/12/23 15:56 128/87 06/12/23 15:56 115 H 21 98 06/12/23 15:50 147/113 H 06/12/23 15:50 132 H 18 98 06/12/23 15:48 126 H 134/110 H 06/12/23 15:45 134/110 H 06/12/23 15:45 126 H 91 06/12/23 15:40 133/103 H 06/12/23 15:40 125 H 92 06/12/23 15:35 124 H 24 94 06/12/23 15:35 134/94 06/12/23 15:31 142/107 H 06/12/23 15:31 134 H 98 06/12/23 15:30 248/211 H 06/12/23 15:30 140 H 22 91 06/12/23 15:20 161 H 23 99 06/12/23 15:15 160 H 99 06/12/23 15:15 133/104 H 06/12/23 15:14 145/103 H 06/12/23 15:14 157 H 98 06/12/23 15:10 146 H 06/12/23 15:00 170 H 06/12/23 14:50 158 H 24 06/12/23 14:46 167/90 H 06/12/23 14:46 160 H 06/12/23 14:40 161 H 06/12/23 14:30 156 H 24 06/12/23 14:26 162 H 06/12/23 14:20 159 H 06/12/23 14:19 160 H 22 147/117 H 97 06/12/23 14:18 161 H 20 06/12/23 14:14 97 06/12/23 13:23 36.3 C L 107 H 22 109/76 98 O2 Del Method 06/12/23 16:12 06/12/23 16:01 06/12/23 16:01 06/12/23 16:00 06/12/23 15:56 06/12/23 15:56 06/12/23 15:50 06/12/23 15:50 06/12/23 15:48 06/12/23 15:45 06/12/23 15:45 06/12/23 15:40 06/12/23 15:40 06/12/23 15:35 06/12/23 15:35 06/12/23 15:31 06/12/23 15:31 06/12/23 15:30 06/12/23 15:30 06/12/23 15:20 06/12/23 15:15 06/12/23 15:15 06/12/23 15:14 06/12/23 15:14 06/12/23 15:10 06/12/23 15:00 06/12/23 14:50 06/12/23 14:46 06/12/23 14:46 06/12/23 14:40 06/12/23 14:30 06/12/23 14:26 06/12/23 14:20 06/12/23 14:19 Room Air 06/12/23 14:18 06/12/23 14:14 Room Air 06/12/23 13:23 Laboratory Results 06/12/23 13:15 06/12/23 13:15 Coding Level of Care Code 87823 CRITICAL CARE 1ST 30-74M Diagnoses DKA (diabetic ketoacidosis) E11.10 Diabetes mellitus complication detail: without coma Diabetes mellitus type: type 2 Atrial fibrillation with rapid ventricular response I48.91 Influenza A J10.1 Type 2 diabetes mellitus with peripheral neuropathy E11.42 ION (acute kidney injury) N17.9 High anion gap metabolic acidosis E87.29 (1) DKA (diabetic ketoacidosis) Diabetes mellitus complication detail: without coma Diabetes mellitus type: t ype 2 Qualified Code(s): E11.10 - Type 2 diabetes mellitus with ketoacidosis without coma
[2023-06-12] MEDS: INSULIN REGULAR 250 UNITS in SODIUM CHLORIDE 0.9% 247.5 ML IV SCH (16:34)
[2023-06-12 16:57] LABS: Appearance Urine Clear (Clear); Bacteria Urine Automated Negative (Negative); Bilirubin Urine Negative (Negative); Blood Urine Trace (Negative); Color Urine Yellow; Glucose Urine UA 3+ (Negative); Ketones Urine 3+ (Negative); Leukocyte Esterase Urine Negative (Negative); Nitrite Urine Negative (Negative); Protein Urine 2+ (Negative); RBC Urine Automated 0-4 /hpf (0-4); Specific Gravity Urine 1.033 (1.000-1.030); Urobilinogen Urine Negative (Negative); pH Urine 5.5 (4.5-7.5)
[2023-06-12 17:22] LABS: Creatinine Urine Random 41.8 mg/dl
[2023-06-12] MEDS ORDERED: PANTOprazole 40 MG in SYRINGE 0 ML IV SCH (17:30)
[2023-06-12] MEDS ORDERED: PLASMA-LYTE A 500 ML IV ONE (17:38)
[2023-06-12] MEDS ORDERED: INSULIN ASPART PER UNIT CHARGE SC SCH (18:00)
[2023-06-12] MEDS ORDERED: ACETAMINOPHEN 1000 MG/100 ML IV IV PRN (18:01)
[2023-06-12] MEDS ORDERED: ENOXAPARIN INJ 40 MG/0.4 ML SYR SQ SCH (18:15)
[2023-06-12] MEDS ORDERED: METOPROLOL TARTRATE 1 MG/ML VIAL IV ONE (18:17)
[2023-06-12] MEDS ORDERED: METOPROLOL TARTRATE 25 MG TAB PO STA (18:34)
[2023-06-12] MEDS ORDERED: METOPROLOL TARTRATE 1 MG/ML VIAL IV PRN (18:35)
[2023-06-12] MEDS: ICU Protocol for HYPERglycemia SCH ×2 (19:14→20:58)
[2023-06-12] MEDS: DEXTROSE 50% 50 ML SYRINGE IV PRN (19:42)
[2023-06-12] MEDS ORDERED: NovoLIN-R BOLUS FROM BAG IV ONE (20:00)
[2023-06-12] MEDS: INSULIN ASPART PER UNIT CHARGE SC SCH (20:59)
[2023-06-12] MEDS: D5W AND 1/2NSS + 20MEQ KCL 20 MEQ/1,000 ML BAG IV SCH (20:59)
[2023-06-12] MEDS: HEPARIN SOD 5,000 UNIT/0.5 ML VIAL SQ SCH (21:00)
--- NOTE | 2023-06-12 21:37 | Billing Data ---
Date of Service June 12, 2023 Coding Level of Care Code 05150 CRITICAL CARE 1ST 30-74M Comment total critical care time was 45 minutes
[2023-06-12 21:57] LABS: BUN Creatinine Ratio 39.7 (10-20); Calcium 7.4 mg/dl (8.6-10.3); Creatinine Clr Calc Pharmacy 104.3 ml/min; Est GFR (African American) 112.9 ml/min; Est GFR (Non-African American) 97.4 ml/min; Potassium 3.9 mmol/L (3.5-5.1)
[2023-06-12] MEDS ORDERED: PENDING D5 1/2NS+20mEq KCL IVF SCH (22:00)
[2023-06-12 22:01] LABS: Magnesium 2.1 mg/dl (1.7-2.4); Phosphorus 1.5 mg/dl (2.5-4.9)
[2023-06-12] MEDS ORDERED: POTASSIUM PHOS 3 MMOL/1 ML INFUSION IV STA (22:03)
[2023-06-12] MEDS ORDERED: POTASSIUM PHOSPHATE 9 MMOL in SODIUM CHLORIDE 0.9% 250 ML IV ONE (22:15)
[2023-06-13] MEDS: METOPROLOL TARTRATE 25 MG TAB PO SCH ×2 (00:52→07:32)
[2023-06-13 01:11] LABS: Calcium 7.4 mg/dl (8.6-10.3); Creatinine Clr Calc Pharmacy 108.5 ml/min; Est GFR (African American) 114.8 ml/min; Phosphorus 1.7 mg/dl (2.5-4.9); Potassium 3.9 mmol/L (3.5-5.1)
[2023-06-13] MEDS: DEXTROSE 50% 50 ML SYRINGE IV PRN (03:59)
[2023-06-13] MEDS: D5W AND 1/2NSS + 20MEQ KCL 20 MEQ/1,000 ML BAG IV SCH ×2 (04:00→06:01)
[2023-06-13] MEDS: HEPARIN SOD 5,000 UNIT/0.5 ML VIAL SQ SCH ×3 (04:25→20:16)
[2023-06-13 04:28] LABS: BUN Creatinine Ratio 36.2 (10-20); Calcium 7.6 mg/dl (8.6-10.3); Creatinine Clr Calc Pharmacy 117.9 ml/min; Est GFR (African American) 118.8 ml/min; Est GFR (Non-African American) 102.5 ml/min; Potassium 3.8 mmol/L (3.5-5.1)
[2023-06-13 04:52] LABS: Magnesium 2.2 mg/dl (1.7-2.4); Phosphorus 1.3 mg/dl (2.5-4.9)
[2023-06-13] MEDS ORDERED: POTASSIUM PHOS 3 MMOL/1 ML INFUSION IV STA ×2 (07:08→18:27)
[2023-06-13] MEDS ORDERED: POTASSIUM PHOSPHATE 15 MMOL in SODIUM CHLORIDE 0.9% 250 ML IV ONE ×2 (07:15→18:45)
[2023-06-13] MEDS: INSULIN ASPART PER UNIT CHARGE SC SCH ×3 (07:31→20:13)
--- NOTE | 2023-06-13 07:41 | Hospitalist Progress Note ---
Date of Service June 13, 2023 Assessment & Plan (1) DKA (diabetic ketoacidosis): Plan: Presented with blood glucose in the 400s and severe dehydration. Triggered by influenza A, had been taking empagliflozin which can be associated with DKA. Is not on insulin at home Treated with IV fluids, insulin drip, serial BMP, electrolyte replacements -anion gap closed, hyperglycemia improved -transitioning to SQ insulin, and weaning off insulin drip this afternoon -Now eating -Continue to follow BMP and anion gap -Potassium is normal -replacing hypophosphatemia and low normal potassium with IV K phos (2) Influenza A: Plan: -ordered oseltamivir 75 bid x 5 days -supportive care (3) Atrial fibrillation with rapid ventricular response: Plan: Hx afib on metoprolol CHADS2-Vasc 3 but continues to adamantly decline anticoagulation and prefers to take aspirin -was in AF with rapid rate, resolved with IV fluids and treatment for DKA -continue oral metoprolol -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 Cr 1.39 --> 0.69 (9) Type 2 diabetes mellitus with peripheral neuropathy: Plan: Hold metformin empagliflozin and semaglutide -Treatment as above -Pharmacy glycemic control consult Plan Diabetic ketoacidosis/high anion gap metabolic acidosis- Anion gap 23, glucose 457, WBC 15.23, hemoglobin 21.4, hematocrit 62.8 Secondary to acute dehydration and physiologic stress from influenza A Admit to intensive care unit with consult to ICU team DKA order set, with endpoint normal anion gap Received 2.5 L of normal saline from the ED, will continue at 250 mL/h, until glucose is 250, when fluids will be changed to D5 half-normal saline with 20 mEq potassium chloride at 250 mls per hour serial BMP, magnesium, VBG and phosphorus levels every 2 hours until improved, then taper to 4 hours, and then 4 times daily Atrial fibrillation with RVR/CAD/hypertension- Improved rate controlled Lopressor 5 mg IV x 2 Continue metoprolol succinate 50 mg daily Continue aspirin Unsure why patient has not been on anticoagulation, will will likely be started at this point. Will leave that to the ICU team Influenza A- Continue Tamiflu for full 5-day course, already received first dose in the ED All laboratories are showing hemoconcentration, and will follow serial CBC with differential, chemistry profile and magnesium in addition to labs as noted above Symptomatic treatment as noted above Diabetes mellitus- Placed on Accu-Cheks with SSI and ICU hyperglycemic protocol Admission and Anticipated Discharge Date Admission Date: June 12, 2023 Subjective Feels much better, breathing is okay has a lot of coughing still feels weaker than usual but much improved after fluids. Nausea and vomiting resolved and is eating lunch. No chest pain or abdominal pain Physical Exam 2 Physical Exam: PHYSICAL EXAMINATION Last 24h vital signs reviewed, see documentation in flowsheet General: Sitting up in ICU bed eating lunch, his and children are gathered at the bedside HEENT: Normocephalic, atraumatic, pupils round and equal, sclerae anicteric, no conjunctival injection, moist mucus membranes Lungs: Normal respiratory effort. Mildly coarse breath sounds bilaterally. No RRW Heart: Regular rate and rhythm, no murmurs. No JVD Abdomen: Soft, nontender, nondistended. Bowel sounds present. Extremities: Warm, dry, well-perfused. No extremity edema. Neuro: Alert and oriented x 4, face symmetric, moves 4 extremities well Psych: Normal affect and behavior Results & Data Results & Data Vital Signs (Past 12 Hours) Vital Signs Temp Pulse Resp BP Pulse Ox O2 Del Method 06/13/23 06:15 68 23 100 06/13/23 06:15 144/79 H 06/13/23 06:00 75 17 100 06/13/23 06:00 139/78 06/13/23 05:45 65 23 143/75 H 99 06/13/23 05:30 66 24 134/76 99 06/13/23 05:15 73 17 146/75 H 100 06/13/23 05:00 67 25 H 152/81 H 100 06/13/23 04:45 70 26 H 129/66 99 06/13/23 04:30 73 20 138/72 99 06/13/23 04:15 67 21 148/77 H 99 06/13/23 04:00 75 21 143/76 H 97 06/13/23 03:45 75 20 152/77 H 98 06/13/23 03:30 79 23 136/58 L 95 06/13/23 03:15 83 17 99 06/13/23 03:00 82 18 146/82 H 99 06/13/23 02:59 81 06/13/23 02:45 85 20 136/74 96 06/13/23 02:30 78 26 H 141/74 H 99 06/13/23 02:15 84 22 145/71 H 97 06/13/23 02:05 78 24 99 06/13/23 01:45 79 28 H 138/67 99 06/13/23 01:30 71 23 139/74 100 06/13/23 01:15 76 29 H 132/66 97 06/13/23 01:00 79 18 135/70 99 06/13/23 00:45 77 23 141/68 H 99 06/13/23 00:30 77 19 99 06/13/23 00:15 85 21 152/64 H 99 06/13/23 00:00 82 23 125/68 99 06/12/23 23:45 76 29 H 120/69 98 06/12/23 23:30 80 28 H 130/73 98 06/12/23 23:15 79 27 H 128/75 98 06/12/23 23:04 37.0 C 06/12/23 23:00 83 16 122/68 99 06/12/23 22:45 84 19 129/85 98 06/12/23 22:30 77 25 H 134/68 99 06/12/23 22:15 85 19 133/85 98 06/12/23 22:00 84 24 98 06/12/23 22:00 146/58 H 06/12/23 21:45 79 26 H 138/63 98 06/12/23 21:30 77 24 118/52 L 98 06/12/23 21:15 83 25 H 132/74 98 06/12/23 21:00 87 23 98 06/12/23 20:45 87 27 H 131/61 99 06/12/23 20:30 81 24 127/64 100 06/12/23 20:16 81 23 120/77 97 06/12/23 20:15 77 19 97 06/12/23 20:00 74 23 127/58 L 99 06/12/23 19:57 82 131/61 12/27/23 19:51 Room Air 06/12/23 19:49 36.9 C 06/12/23 19:48 117/67 06/12/23 19:48 64 24 93 06/12/23 19:45 132 H 27 H 99 06/12/23 19:42 129 H 139/79 Laboratory Results 06/13/23 10:37 06/13/23 14:32 PG Care Time/CCT Total # of Minutes Spent Total Time Spent with Patient: Total time spent is greater than 50% in coordination of care (as documented) at patient's floor/unit and/or counseling patient: Coding Level of Care Code 41531 SUB INP/OBS CARE 235MIN Diagnoses DKA (diabetic ketoacidosis) E11.10 Diabetes mellitus complication detail: without coma Diabetes mellitus type: type 2 Influenza A J10.1 Atrial fibrillation with rapid ventricular response I48.91 High anion gap metabolic acidosis E87.29 Acute dehydration E86.0 Dyslipidemia E78.5 Hypertension I10 ION (acute kidney injury) N17.9 Type 2 diabetes mellitus with peripheral neuropathy E11.42 (1) DKA (diabetic ketoacidosis) Diabetes mellitus complication detail: without coma Diabetes mellitus type: t ype 2 Qualified Code(s): E11.10 - Type 2 diabetes mellitus with ketoacidosis without coma
--- NOTE | 2023-06-13 08:10 | Critical Care Progress Note ---
Date of Service June 13, 2023 Assessment & Plan (1) DKA (diabetic ketoacidosis): (2) Atrial fibrillation with rapid ventricular response: (3) Influenza A: (4) Type 2 diabetes mellitus with peripheral neuropathy: (5) ION (acute kidney injury): (6) High anion gap metabolic acidosis: Plan Reason Critically Ill: 62-year-old male past medical history of A-fib not on anticoagulation, diabetes, COPD presented to the hospital with nausea vomiting and diarrhea. He was found to be in DKA with severe metabolic acidosis. Sent to ICU for further care Neuro - [facility] ICU: Negative Cardiac - -- A-fib/flutter with RVR TSH 1.56 On metoprolol at home [id number] 3, patient has declined anticoagulation in the past --Elevated troponin Likely type II DE Continue to trend EKG 06/12/2023, 1:47 PM: A flutter, heart rate 165, QTc 480, normal axis, no ST- T wave changes Respiratory - --Influenza A positive Saturating well on room air Complete the course of oseltamivir -- Pulmonary nodule Small right lower lobe Next screening CAT scan in May 2024 --History of COPD Not on any inhalers at home [id number] smoking history, quit at the age of 52 GI - -- Nausea/vomiting and diarrhea Likely from influenza Denies any abdominal pain Lipase within normal limit RENAL/LYTES - -- ION--> improved Monitor BUN/creatinine Avoid nephrotoxic medications Strict ins and outs -- MILLIGAN --> improving GMA Delta-delta: Between 1-2, as needed ion gap Likely sec to DKA plus lactic acidosis urine lytes VBG pH 7.15 Monitor -- S/p pseudohyponatremia Corrected sodium 138 ENDO - -- DKA Continue with insulin drip until anion gap closes Decreasing blood glucose no more than 100 in an hour Replace potassium IV when potassium level between 3.3-5.3 BMP every 4 hours Continue with IV fluids HEME - -- S/p leukocytosis with left-sided shift Likely reactive Follow-up septic workup Continue with broad-spectrum antibiotics for the time being ID - -- Chest x-ray clean No clear source of infection, urine clean Lipase within normal limit Procalcitonin 0.11 --Prophylaxis VTE: Heparin GI: Pantoprazole Lines: Peripheral Diet: N.p.o. Plan: In/out: +4.4 L, urine output 600 mL Potassium and phosphorus being replaced Try to bridge insulin drip to subcu insulin Heart rate is better controlled with metoprolol p.o. Will change metoprolol to tartrate to metoprolol succinate 25 mg in the afternoon. If need be can increase it to 25 mg twice daily or 50 mg on a daily basis Hemoglobin is back to his baseline I have personally spent 36 minutes of critical care time in the direct management of this patient. This is a life/limb threatening event. This includes time spent evaluating patient, direct bedside care, chart review, placing orders, interpretation of diagnostic studies, discussion with consultants, patient, and family members, as well as other required patient management activities. This time is exclusive of all separately billable procedures, and teaching time and separate from and in addition to any other critical care service time. Admission and Anticipated Discharge Date Admission Date: June 12, 2023 Subjective Patient seen and examined at bedside. No acute distress, no adverse events overnight He says he is feeling better compared to yesterday. His burping as well as heartburn has improved. Denies any abdominal pain No shortness of breath, no headache, no nausea vomiting Occasional cough with clear phlegm. Has been afebrile Review of Systems 2 Review of Systems: All systems reviewed & are unremarkable except as noted in Subjective Physical Exam 2 Physical Exam: Constitutional: No acute distress HEENT: EOMI, PERRLA Respiratory system: Good air entry bilaterally, no wheeze, no rhonchi, mild crackles bilateral lower lobes CVS: S1-S2 positive, no murmurs or gallops Abdomen: Soft, nontender, nondistended, positive bowel sounds x4 Extremities: +2 pulses bilaterally radialis/ dorsalis pedis, no cyanosis, no edema Neuro: Awake alert oriented x3 Psych: Normal mood and affect G/U: No Acuna Skin: no rashes, warm and dry Lymphatic: no cervical or axillary lymphadenopathy Results & Data Results & Data Vital Signs (Past 12 Hours) Vital Signs Temp Pulse Resp BP Pulse Ox 06/13/23 06:15 68 23 100 06/13/23 06:15 144/79 H 06/13/23 06:00 75 17 100 06/13/23 06:00 139/78 06/13/23 05:45 65 23 143/75 H 99 06/13/23 05:30 66 24 134/76 99 06/13/23 05:15 73 17 146/75 H 100 06/13/23 05:00 67 25 H 152/81 H 100 06/13/23 04:45 70 26 H 129/66 99 06/13/23 04:30 73 20 138/72 99 06/13/23 04:15 67 21 148/77 H 99 06/13/23 04:00 75 21 143/76 H 97 06/13/23 03:45 75 20 152/77 H 98 06/13/23 03:30 79 23 136/58 L 95 06/13/23 03:15 83 17 99 06/13/23 03:00 82 18 146/82 H 99 06/13/23 02:59 81 06/13/23 02:45 85 20 136/74 96 06/13/23 02:30 78 26 H 141/74 H 99 06/13/23 02:15 84 22 145/71 H 97 06/13/23 02:05 78 24 99 06/13/23 01:45 79 28 H 138/67 99 06/13/23 01:30 71 23 139/74 100 06/13/23 01:15 76 29 H 132/66 97 06/13/23 01:00 79 18 135/70 99 06/13/23 00:45 77 23 141/68 H 99 06/13/23 00:30 77 19 99 06/13/23 00:15 85 21 152/64 H 99 06/13/23 00:00 82 23 125/68 99 06/12/23 23:45 76 29 H 120/69 98 06/12/23 23:30 80 28 H 130/73 98 06/12/23 23:15 79 27 H 128/75 98 06/12/23 23:04 37.0 C 06/12/23 23:00 83 16 122/68 99 06/12/23 22:45 84 19 129/85 98 06/12/23 22:30 77 25 H 134/68 99 06/12/23 22:15 85 19 133/85 98 06/12/23 22:00 84 24 98 06/12/23 22:00 146/58 H 06/12/23 21:45 79 26 H 138/63 98 06/12/23 21:30 77 24 118/52 L 98 06/12/23 21:15 83 25 H 132/74 98 06/12/23 21:00 87 23 98 06/12/23 20:45 87 27 H 131/61 99 06/12/23 20:30 81 24 127/64 100 06/12/23 20:16 81 23 120/77 97 06/12/23 20:15 77 19 97 Laboratory Results 06/12/23 13:15 06/13/23 03:47 Coding Level of Care Code 81591 CRITICAL CARE 1ST 30-74M Diagnoses DKA (diabetic ketoacidosis) E11.10 Diabetes mellitus complication detail: without coma Diabetes mellitus type: type 2 Atrial fibrillation with rapid ventricular response I48.91 Influenza A J10.1 Type 2 diabetes mellitus with peripheral neuropathy E11.42 ION (acute kidney injury) N17.9 High anion gap metabolic acidosis E87.29 Time Spent (min) 36 (1) DKA (diabetic ketoacidosis) Diabetes mellitus complication detail: without coma Diabetes mellitus type: t ype 2 Qualified Code(s): E11.10 - Type 2 diabetes mellitus with ketoacidosis without coma
[2023-06-13] MEDS ORDERED: PHARMACY GLYCEMIC MGMT CONSULT PRN (08:15)
[2023-06-13] MEDS: OSELTAMIVIR PHOSPHATE 75 MG CAP PO SCH ×2 (08:26→20:16)
[2023-06-13] MEDS ORDERED: METOPROLOL SUCC 50MG EXT REL TAB PO SCH (09:00)
--- NOTE | 2023-06-13 09:19 | Pharmacy Report ---
Pharmacy Glycemic Short Note 2 - Date of Service June 13, 2023 - Glycemic Short BSG Results (Last 24 hours): 06/12/23 06/12/23 06/12/23 13:15 14:14 14:19 Glucose 457 H* POC Glucose 361 H* POC Glucose (other) 430 H* 06/12/23 06/12/23 06/12/23 15:47 17:30 18:52 Glucose POC Glucose 302 H* 211 H 134 H POC Glucose (other) 06/12/23 06/12/23 06/12/23 19:10 19:38 19:58 Glucose POC Glucose 139 H 132 H 168 H POC Glucose (other) 06/12/23 06/12/23 06/12/23 21:05 21:22 21:57 Glucose 174 H POC Glucose 173 H 165 H POC Glucose (other) 06/12/23 06/13/23 06/13/23 23:00 00:37 00:49 Glucose 142 H POC Glucose 168 H 125 H POC Glucose (other) 06/13/23 06/13/23 06/13/23 00:51 02:54 03:47 Glucose 119 H POC Glucose 154 H 120 H POC Glucose (other) 06/13/23 06/13/23 06/13/23 03:54 04:18 05:23 Glucose POC Glucose 112 H 187 H 189 H POC Glucose (other) 06/13/23 06/13/23 06/13/23 06:24 07:26 08:24 Glucose POC Glucose 159 H 168 H 164 H POC Glucose (other) OUTPATIENT ANTIDIABETIC REGIMEN: * Metformin * Empagliflozin * Semaglutide * HbA1c 7.8% on 06/01/23 * Per ICU rounds discussion 06/13 - patient does not check BSG's at home (plays [employer] and also is not willing at this time to go home on insulin ASSESSMENT: * 62 yo M w T2DM well controlled per HbA1c without insulin admitted 06/12 for DKA and influenza. * No previous hospitalizations at [facility] to review for glycemic purposes * Currently in ICU on insulin infusion which has titrated down from 7.5 to 1.4 units/hr since initiation yesterday despite no basal insulin administered thus far * Anion gap now closed and pH has risen from 7.15 to 7.47. * D5 1/2NS w KCL 20 mEq/L running at 125 mL/hr. Plan to stop this AM and start diet * Discussed at ICU rounds - OK to transition * Will give lower dose of Lantus 2nd lower rate of insulin drip * Will initiate Novolog at weight-based moderate stress estimate * Drip to stop later today per below PLAN FOR INPATIENT GLYCEMIC CONTROL: * Hold outpatient oral diabetes medications * Basal insulin * Lantus 20 units SQ x1 now * Wean off insulin drip. Plan to stop at 1700. May stop as soon as 1300 if BSG is less than 180 mg/dL and insulin drip titration notes to hold drip * Bolus insulin * NovoLog per scale ACHS or Q6hrs while NPO * Goal Range: Low 110 mg/dL - High 140 mg/dL * Correction Factor: 30 mg/dL/unit * Nutritional / Prandial insulin per carb ratio of 1 unit per 10 grams CHO consumed
[2023-06-13] MEDS ORDERED: LANTUS PER UNIT CHARGE SC ONE (10:15)
[2023-06-13] MEDS: PANTOprazole 40 MG TAB PO SCH (10:35)
[2023-06-13] MEDS ORDERED: PANTOprazole 40 MG in SYRINGE 0 ML IV SCH (11:00)
[2023-06-13 11:11] LABS: Basophils # (auto) 0.01 K/uL (0.00-0.20); Basophils % (auto) 0.1 %; Eosinophils # (auto) 0.01 K/uL (0.00-0.50); Eosinophils % (auto) 0.1 %; Hemoglobin 16.1 g/dl (14.0-18.0); Immature Granulocytes # (auto) 0.04 K/uL (0.01-0.20); Immature Granulocytes % (auto) 0.4 %; Lymphocytes # (auto) 0.68 K/uL (1.20-3.40); Lymphocytes % (auto) 7.4 %; Mean Corpuscular Hemoglobin 28.1 pg (25.0-34.0); Mean Corpuscular Volume 80.4 fL (80.0-100.0); Mean Platelet Volume 9.7 fL (9.4-12.4); Monocytes # (auto) 1.32 K/uL (0.11-0.59); Monocytes % (auto) 14.3 %; Neutrophils # (auto) 7.14 K/uL (1.40-6.50); Neutrophils % (auto) 77.7 %; Platelet Count 143 K/uL (130-400); RDW Coefficient of Variation 13.4 % (11.5-14.5); RDW Standard Deviation 38.7 fL (36.4-46.3); Red Blood Count 5.72 M/uL (4.70-6.10)
[2023-06-13 11:26] LABS: Calcium 7.4 mg/dl (8.6-10.3); Creatinine Clr Calc Pharmacy 117.9 ml/min; Est GFR (African American) 118.8 ml/min; Est GFR (Non-African American) 102.5 ml/min; Magnesium 2.2 mg/dl (1.7-2.4); Phosphorus 2.1 mg/dl (2.5-4.9); Potassium 4.3 mmol/L (3.5-5.1); Troponin I High Sensitivity 41.7 pg/ml (0-20)
[2023-06-13] MEDS ORDERED: INSULIN ASPART PER UNIT CHARGE SC ONE (11:30)
[2023-06-13] MEDS: METOPROLOL SUCC 25MG EXT REL TAB PO SCH (11:53)
[2023-06-13 15:16] LABS: BUN Creatinine Ratio 29.2 (10-20); Calcium 7.8 mg/dl (8.6-10.3); Creatinine Clr Calc Pharmacy 125.2 ml/min; Est GFR (African American) 121.7 ml/min; Magnesium 2.2 mg/dl (1.7-2.4); Phosphorus 1.6 mg/dl (2.5-4.9); Potassium 3.8 mmol/L (3.5-5.1)
[2023-06-13] MEDS: INSULIN REGULAR 250 UNITS in SODIUM CHLORIDE 0.9% 247.5 ML IV SCH (16:23)
[2023-06-13] MEDS: ALUMINUM/MAGNESIUM/SIMETH (MAALOX MAX) 30 ML UDC PO PRN ×2 (16:24→22:40)
[2023-06-13 17:16] LABS: BUN Creatinine Ratio 27.9 (10-20); Calcium 7.7 mg/dl (8.6-10.3); Creatinine Clr Calc Pharmacy 119.6 ml/min; Est GFR (African American) 119.5 ml/min; Est GFR (Non-African American) 103.1 ml/min; Magnesium 2.2 mg/dl (1.7-2.4); Phosphorus 1.8 mg/dl (2.5-4.9); Potassium 3.8 mmol/L (3.5-5.1)
[2023-06-13 21:05] LABS: Calcium 7.6 mg/dl (8.6-10.3); Creatinine Clr Calc Pharmacy 131.2 ml/min; Est GFR (African American) 124.1 ml/min; Est GFR (Non-African American) 107.1 ml/min; Magnesium 2.2 mg/dl (1.7-2.4); Phosphorus 2.2 mg/dl (2.5-4.9); Potassium 3.9 mmol/L (3.5-5.1)
[2023-06-14] MEDS ORDERED: INSULIN ASPART PER UNIT CHARGE SC ONE (02:00)
[2023-06-14 04:02] LABS: BUN Creatinine Ratio 27.1 (10-20); Calcium 7.5 mg/dl (8.6-10.3); Creatinine Clr Calc Pharmacy 137.9 ml/min; Est GFR (African American) 126.6 ml/min; Est GFR (Non-African American) 109.3 ml/min; Potassium 3.7 mmol/L (3.5-5.1)
[2023-06-14] MEDS: HEPARIN SOD 5,000 UNIT/0.5 ML VIAL SQ SCH (05:57)
[2023-06-14 06:04] LABS: Magnesium 2.2 mg/dl (1.7-2.4)
[2023-06-14 06:16] LABS: Basophils # (auto) 0.01 K/uL (0.00-0.20); Basophils % (auto) 0.1 %; Hemoglobin 15.4 g/dl (14.0-18.0); Immature Granulocytes # (auto) 0.04 K/uL (0.01-0.20); Immature Granulocytes % (auto) 0.5 %; Lymphocytes # (auto) 0.79 K/uL (1.20-3.40); Lymphocytes % (auto) 9.6 %; Mean Corpuscular Hemoglobin 28.1 pg (25.0-34.0); Mean Corpuscular Volume 80.3 fL (80.0-100.0); Monocytes # (auto) 0.96 K/uL (0.11-0.59); Monocytes % (auto) 11.7 %; Neutrophils # (auto) 6.44 K/uL (1.40-6.50); Neutrophils % (auto) 78.1 %; Platelet Count 113 K/uL (130-400); RDW Coefficient of Variation 13.2 % (11.5-14.5); RDW Standard Deviation 38.5 fL (36.4-46.3); Red Blood Count 5.48 M/uL (4.70-6.10); White Blood Count 8.24 K/ul (4.8-10.8)
[2023-06-14] MEDS ORDERED: POTASSIUM PHOS 3 MMOL/1 ML INFUSION IV STA (07:23)
[2023-06-14] MEDS: METOPROLOL SUCC 25MG EXT REL TAB PO SCH (07:29)
[2023-06-14] MEDS ORDERED: POTASSIUM PHOSPHATE 21 MMOL in SODIUM CHLORIDE 0.9% 500 ML IV ONE (07:30)
[2023-06-14] MEDS: PANTOprazole 40 MG TAB PO SCH (07:30)
--- NOTE | 2023-06-14 07:58 | Critical Care Progress Note ---
Date of Service June 14, 2023 Assessment & Plan (1) DKA (diabetic ketoacidosis): (2) Atrial fibrillation with rapid ventricular response: (3) Influenza A: (4) Type 2 diabetes mellitus with peripheral neuropathy: (5) ION (acute kidney injury): (6) High anion gap metabolic acidosis: Plan Reason Critically Ill: 62-year-old male past medical history of A-fib not on anticoagulation, diabetes, COPD presented to the hospital with nausea vomiting and diarrhea. He was found to be in DKA with severe metabolic acidosis. Sent to ICU for further care Neuro - [facility] ICU: Negative Cardiac - -- A-fib/flutter with RVR TSH 1.56 On metoprolol at home [id number], patient has declined anticoagulation in the past --Elevated troponin Likely type II IL Continue to trend EKG 06/12/2023, 1:47 PM: A flutter, heart rate 165, QTc 480, normal axis, no ST- T wave changes Respiratory - --Influenza A positive Saturating well on room air Complete the course of oseltamivir -- Pulmonary nodule Small right lower lobe Next screening CAT scan in May 2024 --History of COPD Not on any inhalers at home [id number] smoking history, quit at the age of 52 GI - -- Nausea/vomiting and diarrhea --> resolved Likely from influenza Denies any abdominal pain Lipase within normal limit RENAL/LYTES - -- ION--> improved Monitor BUN/creatinine Avoid nephrotoxic medications Strict ins and outs -- S/p HAGMA Delta-delta: Between 1-2, as needed ion gap Likely sec to DKA plus lactic acidosis urine lytes VBG pH 7.15 Monitor -- S/p pseudohyponatremia Corrected sodium 138 ENDO - -- S/p DKA Continue with insulin drip until anion gap closes Decreasing blood glucose no more than 100 in an hour Replace potassium IV when potassium level between 3.3-5.3 BMP every 4 hours Continue with IV fluids HEME - -- New onset thrombocytopenia Continue to monitor -- S/p leukocytosis with left-sided shift Likely reactive Follow-up septic workup Continue with broad-spectrum antibiotics for the time being ID - -- Chest x-ray clean No clear source of infection, urine clean Lipase within normal limit Procalcitonin 0.11 --Prophylaxis VTE: IPC, patient refuses heparin GI: Pantoprazole Lines: Peripheral Diet: Diabetic diet Plan: In/out: Negative 490, urine output 2600 mL, +4 L Since coming to the hospital Potassium and phosphorus being replaced New onset thrombocytopenia. Patient's initial platelet count were in the 200s but he was severely dehydrated at that time, yesterday it was 148 and today it is 113 Patient has been refusing heparin since admission. He has not gotten a single dose. Will discontinue heparin Patient hemodynamically stable to be downgraded to medical floor Please note the above document was generated using voice recognition software. It may contain grammatical, syntax or spelling errors.Any formal questions or concerns about the content, text or information contained within the body of this dictation should be directly addressed to the provider for clarification. Admission and Anticipated Discharge Date Admission Date: June 12, 2023 Subjective Patient seen and examined at bedside. No acute distress, no adverse events overnight Gastric reflux seems to be improving Overall he feels much better He has been off of insulin drip for more than 12 hours Tolerating diet. No nausea or vomiting No headache, no blurry vision Still coughing, bringing up clear phlegm. Denies any significant chest congestion. No hemoptysis Review of Systems 2 Review of Systems: All systems reviewed & are unremarkable except as noted in Subjective Physical Exam 2 Physical Exam: Constitutional: No acute distress HEENT: EOMI, PERRLA Respiratory system: Good air entry bilaterally, no wheeze, mild rhonchi, mild crackles bilateral lower lobes CVS: S1-S2 positive, no murmurs or gallops Abdomen: Soft, nontender, nondistended, positive bowel sounds x4 Extremities: +2 pulses bilaterally radialis/ dorsalis pedis, no cyanosis, no edema Neuro: Awake alert oriented x3 Psych: Normal mood and affect G/U: No [place] Skin: no rashes, warm and dry Lymphatic: no cervical or axillary lymphadenopathy Results & Data Results & Data Vital Signs (Past 12 Hours) Vital Signs Temp Pulse Resp BP Pulse Ox 06/14/23 06:00 136/63 06/14/23 06:00 71 17 95 06/14/23 05:00 69 21 150/81 H 95 06/14/23 04:00 69 21 96 06/14/23 03:17 73 06/14/23 03:14 36.7 C 06/14/23 03:00 66 27 H 96 06/14/23 02:09 73 28 H 152/71 H 97 06/14/23 02:00 66 18 95 06/14/23 01:04 36.7 C 06/14/23 01:00 67 23 144/73 H 93 06/14/23 00:13 77 21 160/72 H 97 06/14/23 00:00 75 16 95 06/13/23 23:00 68 22 93 06/13/23 22:01 67 21 156/65 H 96 06/13/23 22:00 79 23 96 06/13/23 21:00 70 24 159/80 H 98 06/13/23 20:00 72 20 149/83 H 98 Laboratory Results 06/14/23 03:13 06/14/23 03:09 Coding Level of Care Code 53939 SUB INP/OBS CARE 3/50MIN Diagnoses DKA (diabetic ketoacidosis) E11.10 Diabetes mellitus complication detail: without coma Diabetes mellitus type: type 2 Atrial fibrillation with rapid ventricular response I48.91 Influenza A J10.1 Type 2 diabetes mellitus with peripheral neuropathy E11.42 ION (acute kidney injury) N17.9 High anion gap metabolic acidosis E87.29 (1) DKA (diabetic ketoacidosis) Diabetes mellitus complication detail: without coma Diabetes mellitus type: t ype 2 Qualified Code(s): E11.10 - Type 2 diabetes mellitus with ketoacidosis without coma
[2023-06-14] MEDS: INSULIN ASPART PER UNIT CHARGE SC SCH ×4 (08:19→20:50)
[2023-06-14] MEDS: OSELTAMIVIR PHOSPHATE 75 MG CAP PO SCH ×2 (08:19→20:03)
[2023-06-14] MEDS ORDERED: METOPROLOL SUCC 25MG EXT REL TAB PO STA (08:22)
[2023-06-14] MEDS: LANTUS PER UNIT CHARGE SC SCH (09:32)
[2023-06-14] MEDS ORDERED: METOPROLOL SUCC 50MG EXT REL TAB PO SCH (10:30)
[2023-06-14] MEDS ORDERED: ACETAMINOPHEN 325 MG TAB PO PRN (11:34)
--- NOTE | 2023-06-14 12:19 | Pharmacy Report ---
Pharmacy Glycemic Short Note 2 - Date of Service June 14, 2023 - Glycemic Short BSG Results (Last 24 hours): 06/13/23 06/13/23 06/13/23 12:26 13:29 14:32 Glucose 160 H POC Glucose 159 H 144 H 06/13/23 06/13/23 06/13/23 14:59 16:03 16:49 Glucose 142 H POC Glucose 136 H 138 H 116 H 06/13/23 06/13/23 06/14/23 19:59 20:34 03:09 Glucose 141 H 122 H POC Glucose 136 H 06/14/23 06/14/23 06/14/23 03:12 07:22 11:39 Glucose POC Glucose 112 H 116 H 111 H OUTPATIENT ANTIDIABETIC REGIMEN: * Metformin * Empagliflozin * Semaglutide * HbA1c 7.8% on 06/01/23 * Per ICU rounds discussion 06/13 - patient does not check BSG's at home (plays [employer] and also is not willing at this time to go home on insulin ASSESSMENT: 06/14: * BSGs well controlled since insulin drip stopped: [id number]/dL. Received 20 units of Lantus and no bolus insulin yesterday. * Tolerating a small amount of PO, other stressors stable. * Will decrease Lantus to 15 units this AM (fasting BSG 116mg/dL and self- titrated off of drip). No change to Novolog today. 06/13: * 62 yo M w T2DM well controlled per HbA1c without insulin admitted 06/12 for DKA and influenza. * No previous hospitalizations at [facility] to review for glycemic purposes * Currently in ICU on insulin infusion which has titrated down from 7.5 to 1.4 units/hr since initiation yesterday despite no basal insulin administered thus far * Anion gap now closed and pH has risen from 7.15 to 7.47. * D5 1/2NS w KCL 20 mEq/L running at 125 mL/hr. Plan to stop this AM and start diet * Discussed at ICU rounds - OK to transition * Will give lower dose of Lantus 2nd lower rate of insulin drip * Will initiate Novolog at weight-based moderate stress estimate * Drip to stop later today per below PLAN FOR INPATIENT GLYCEMIC CONTROL: * Hold outpatient oral diabetes medications * Basal insulin * Lantus 15 units SQ daily * Bolus insulin * NovoLog per scale ACHS or Q6hrs while NPO * Goal Range: Low 110 mg/dL - High 140 mg/dL * Correction Factor: 30 mg/dL/unit * Nutritional / Prandial insulin per carb ratio of 1 unit per 10 grams CHO consumed
--- NOTE | 2023-06-14 17:28 | Hospitalist Progress Note ---
Date of Service June 14, 2023 Assessment & Plan (1) DKA (diabetic ketoacidosis): Plan: Presented with blood glucose in the 400s and severe dehydration. Triggered by influenza A, had been taking empagliflozin which can be associated with DKA. Is not on insulin at home Treated with IV fluids, insulin drip, serial BMP, electrolyte replacements -anion gap closed, hyperglycemia improved, DKA resolved. reviewed BMP today phos still low -transitioned to SQ insulin and eating well -home in AM if stable, AM BMP -replacing hypophosphatemia and low normal potassium with IV K phos again today -thrombocytopenia - mild, new. was refusing the heparinoid and not getting. Due to influenza? 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 Cr 1.39 --> 0.69 (9) Type 2 diabetes mellitus with peripheral neuropathy: Plan: Hold metformin empagliflozin and semaglutide -Treatment as above -Pharmacy glycemic control consult, at goal 06/14 Admission and Anticipated Discharge Date Admission Date: June 12, 2023 Subjective feeling much better, eating well no nausea, +cough no CP no abdominal pain Physical Exam 2 Physical Exam: PHYSICAL EXAMINATION Last 24h vital signs reviewed, see documentation in flowsheet exam unchanged 06/14 General: Sitting up in ICU bed eating breakfast HEENT: Normocephalic, atraumatic, pupils round and equal, sclerae anicteric, no conjunctival injection, moist mucus membranes Lungs: Normal respiratory effort. Mildly coarse breath sounds bilaterally. No RRW Heart: Regular rate and rhythm, no murmurs. No JVD Abdomen: Soft, nontender, nondistended. Bowel sounds present. Extremities: Warm, dry, well-perfused. No extremity edema. Neuro: Alert and oriented x 4, face symmetric, moves 4 extremities well Psych: Normal affect and behavior Results & Data Results & Data Vital Signs (Past 12 Hours) Vital Signs Temp Pulse Pulse Resp BP BP Pulse Ox 06/14/23 15:59 36.9 C 77 18 149/79 H 95 06/14/23 11:00 148/67 H 06/14/23 11:00 71 28 H 97 06/14/23 10:00 156/77 H 06/14/23 10:00 71 21 97 06/14/23 09:00 72 23 96 06/14/23 09:00 158/80 H 06/14/23 08:00 155/79 H 06/14/23 08:00 78 21 96 06/14/23 08:00 06/14/23 08:00 06/14/23 08:00 06/14/23 08:00 36.7 C 06/14/23 07:23 165/83 H 06/14/23 07:23 74 23 97 06/14/23 07:00 71 12 96 06/14/23 06:00 136/63 06/14/23 06:00 71 17 95 O2 Del Method O2 Del Method 06/14/23 15:59 Room Air 06/14/23 11:00 06/14/23 11:00 06/14/23 10:00 06/14/23 10:00 06/14/23 09:00 06/14/23 09:00 06/14/23 08:00 06/14/23 08:00 06/14/23 08:00 Room Air 06/14/23 08:00 Room Air 06/14/23 08:00 Room Air 06/14/23 08:00 06/14/23 07:23 06/14/23 07:23 06/14/23 07:00 06/14/23 06:00 06/14/23 06:00 Laboratory Results 06/14/23 03:13 06/14/23 03:09 PG Care Time/CCT Total # of Minutes Spent Total Time Spent with Patient: Total time spent is greater than 50% in coordination of care (as documented) at patient's floor/unit and/or counseling patient: Coding Level of Care Code 86476 SUB INP/OBS CARE MIN Diagnoses DKA (diabetic ketoacidosis) E11.10 Diabetes mellitus complication detail: without coma Diabetes mellitus type: type 2 Influenza A J10.1 Atrial fibrillation with rapid ventricular response I48.91 High anion gap metabolic acidosis E87.29 Acute dehydration E86.0 Dyslipidemia E78.5 Hypertension I10 ION (acute kidney injury) N17.9 Type 2 diabetes mellitus with peripheral neuropathy E11.42 (1) DKA (diabetic ketoacidosis) Diabetes mellitus complication detail: without coma Diabetes mellitus type: t ype 2 Qualified Code(s): E11.10 - Type 2 diabetes mellitus with ketoacidosis without coma
[2023-06-14] MEDS: guaiFENesin 600 MG TABCR PO SCH (20:01)
[2023-06-15] MEDS: PANTOprazole 40 MG TAB PO SCH (08:02)
[2023-06-15] MEDS: guaiFENesin 600 MG TABCR PO SCH (08:02)
[2023-06-15] MEDS: OSELTAMIVIR PHOSPHATE 75 MG CAP PO SCH (08:02)
[2023-06-15] MEDS: INSULIN ASPART PER UNIT CHARGE SC SCH ×2 (08:05→12:41)
[2023-06-15] MEDS: LANTUS PER UNIT CHARGE SC SCH (08:07)
[2023-06-15 08:10] LABS: Hematocrit (blood only) 43.5 % (42.0-52.0); Hemoglobin 15.4 g/dl (14.0-18.0); Mean Corpuscular Hemoglobin 27.9 pg (25.0-34.0); Mean Corpuscular Hgb Conc 35.4 g/dL (32.0-36.0); Mean Corpuscular Volume 78.9 fL (80.0-100.0); Mean Platelet Volume 9.8 fL (9.4-12.4); Platelet Count 128 K/uL (130-400); RDW Standard Deviation 37.1 fL (36.4-46.3); Red Blood Count 5.51 M/uL (4.70-6.10); White Blood Count 6.11 K/ul (4.8-10.8)
[2023-06-15 08:27] LABS: Est GFR (African American) 135.6 ml/min; Potassium 3.4 mmol/L (3.5-5.1)
[2023-06-15 08:28] LABS: Calcium 7.8 mg/dl (8.6-10.3); Creatinine Clr Calc Pharmacy 162.7 ml/min
[2023-06-15] MEDS ORDERED: METOPROLOL SUCC 50MG EXT REL TAB PO SCH (09:00)
[2023-06-15] MEDS ORDERED: ROSUVASTATIN CALCIUM 20 MG TAB PO SCH (09:00)
[2023-06-15] MEDS ORDERED: POTASSIUM CHLORIDE CRTAB 20 MEQ TABCR PO STA (09:17)
[2023-06-15 16:24] LABS: Uric Acid, Random Urine 13 mg/dL
--- NOTE | 2023-06-15 20:03 | Discharge Summary ---
Date of Service June 15, 2023 Admission HPI Per Admitting Provider The patient is a 62-year-old male with a past medical history including atrial fibrillation with RVR, obese mellitus type II, diabetic peripheral neuropathy, history of atrial fibrillation, cervical disc disorder, CAD, dyslipidemia, and hypertension. Patient presented with 4 to 5 days of persistent and progressive nausea, vomiting, diarrhea and generalized weakness. [employer] testing in the emergency department was positive for influenza A. Laboratories otherwise consistent with DKA and hemoconcentration due to severe dehydration. Anion gap of 23, advised the starting of an insulin drip with and to target a normal anion gap, and admission to the ICU. Principal Diagnosis diabetic ketoacidosis, influenza A Discharge Exam PHYSICAL EXAMINATION Last 24h vital signs reviewed, see documentation in flowsheet exam unchanged 06/15 General: sitting in bed resting comfortably HEENT: Normocephalic, atraumatic, pupils round and equal, sclerae anicteric, no conjunctival injection, moist mucus membranes Lungs: Normal respiratory effort. Mildly coarse breath sounds bilaterally anteriorly and posteriorly but good air movement. Frequent loose cough. No RRW Heart: Regular rate and rhythm, no murmurs. No JVD Abdomen: nondistended bowel tones present Extremities: Warm, dry, well-perfused. No extremity edema. Neuro: Alert and oriented x 4, face symmetric, moves 4 extremities well Psych: Normal affect and behavior Discharge Data Allergies Allergy/AdvReac Type Severity Reaction Status Date / Time No Known Allergies Allergy Verified 06/12/23 16:05 Consultations 06/12/23 15:58 ED Decision to Admit Stat 06/12/23 18:01 Consult Junior Marketing Associate Routine Ordered Studies Chest X-Ray 06/12/23 13:27 SINGLE VIEW CHEST CLINICAL HISTORY: Dyspnea. Generalized abdominal pain. FINDINGS: 2 AP, portable, upright chest radiographs are compared to study dated 09/19/2020 and correlated with chest CT dated 05/30/2023. The heart is mildly enlarged noting atherosclerotic calcification of the thoracic aorta. The pulmonary vasculature is noncongested. There is mild emphysematous change. The lungs and pleural spaces are clear. No pneumothorax is seen. The skeletal structures are osteopenic. The bony thorax is grossly intact. IMPRESSION: No acute cardiopulmonary abnormality. ACT 112: Negative or not required by law. Electronically signed by: Roman Kingsley M.D. 06/12/2023 2:40 PM 06/15/23 07:21 06/15/23 07:21 Hospital Course (1) DKA (diabetic ketoacidosis): Presented with blood glucose in the 400s and severe dehydration. Triggered by influenza A, had been taking empagliflozin which can be associated with DKA. Is not on insulin at home Treated with IV fluids, insulin drip, serial BMP, electrolyte replacements -anion gap closed, hyperglycemia improved, DKA resolved. -transitioned to SQ insulin and eating well - able to return home 06/15 had glargine this morning by pharmacist, will resume his usual diabetic meds tomorrow - I counseled him that empaglifozin has been associated with diabetic ketoacidosis, nonetheless he feels like this medication regimen has worked extremely well for them and he does not want to change medications. I think this was mainly precipitated by influenza and associated dehydration but caution is warranted. I instructed him to follow-up closely with his primary care doctor and discuss further with Dr. Lucero how she feels about continuing empaglifozin vs replacing with another medication. If he has another episode of ketoacidosis it certainly should be discontinued. I also counseled him that if he is acutely ill or dehydrated and not eating and drinking well this medication should be held immediately. hypophosphatemia and hypokalemia were replaced -thrombocytopenia - mild, new. was refusing the heparinoid and not getting. 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 Cr 1.39 --> 0.69 (9) Type 2 diabetes mellitus with peripheral neuropathy: See above Total Time Total Time Spent Total Time Spent (In Minutes): 25 minutes spent coordinating care for discharge Discharge Plan Discharge Items Patient Disposition: Home - Self-Care Reason For Visit: DKA, INFLUENZA A Discharge Diagnosis: DKA, influenza A Activity: Resume your previous activity Non-emergency contact: Primary Care Provider Call non-emergency contact if: you have any medication questions and your symptoms worsen Follow-up/Referrals: Matilde Lucero MD [Primary Care Provider] - Diet: Carb Consistent or DM2 Addtl Attending Provider Instructions: You were treated for severe dehydration and high blood sugar (DKA / diabetic ketoacidosis) caused by Influenza A This was treated with IV insulin, electrolytes, IV fluids and oseltamivir -take oseltamivir until it runs out In the future if you get sick and are not eating/drinking normally, it is a good idea to skip your empaglifozin, because this medication can be associated with DKA -I left you on this medicine for now, but please talk to Dr. Lucero about whether you should continue it or change to something different Pending Studies at Discharge: No Stand-Alone Forms: My [facility] [employer], Smoking Cessation Medications and DC Order Prescriptions: New oseltamivir [Tamiflu] 75 mg Capsule 75 mg PO BID Qty: 5 0RF Continued metformin 1,000 mg tablet 1,000 mg PO BID Qty: 180 3RF metoprolol succinate 50 mg tablet extended release 24 hr 50 mg PO DAILY Qty: 90 3RF rosuvastatin 20 mg tablet 20 mg PO DAILY Qty: 90 3RF Jardiance 10 mg tablet 10 mg PO DAILY Qty: 90 3RF aspirin 81 mg tablet,delayed release (DR/EC) 81 mg PO QAM sildenafil [Viagra] 100 mg tablet 100 mg PO DAILY PRN (Reason: sexual activity) Qty: 30 0RF Rx Instructions: administer 30 minutes to 4 hours before activity Rybelsus 7 mg tablet 7 mg PO BID Discharge Orders: Discharge Order (Routine); Ordered 06/15/23 Ordered By: Kayleigh Leroy Admission Data Admit Date/Time: 06/12/23 16:12 Attending Provider: Kayleigh Leroy Admit Provider: Matt Curiel Primary Care Provider: Matilde Lucero Other Providers: Maegan Becker Other Interventions: Discharge Summary Assessment (RN) Last Done: 06/15/23 10:18 Coding Level of Care Code 27829 IN/OBS DISCH 30 MIN/LESS Diagnoses DKA (diabetic ketoacidosis) E11.10 Diabetes mellitus complication detail: without coma Diabetes mellitus type: type 2 Influenza A J10.1 Atrial fibrillation with rapid ventricular response I48.91 High anion gap metabolic acidosis E87.29 Acute dehydration E86.0 Dyslipidemia E78.5 Hypertension I10 ION (acute kidney injury) N17.9 Type 2 diabetes mellitus with peripheral neuropathy E11.42
== END 2023-06-15 13:38 | disposition home or self-care (01) | DRG 637 ==
LOC: ED 12:52 → SUATTDRO 16:12 → 1E 16:12 → 3E 06-14 10:06